=== PATIENT | male | born 1950 | race Caucasian/White ===

== ENCOUNTER 2018-04-21 01:13 | Outpatient (CLI) | payer MEDICARE, OTHER, SELFPAY ==
--- NOTE | 2018-04-21 11:31 | DI.MRI_ITS ---
SYMPTOM/DIAGNOSIS: CHRONIC BACK PAIN, LT LEG WEAKER THAN RT LUMBAR SPINE MRI: Routine noncontrast examination was performed. Comparison is made with 2011. The conus medullaris has a normal appearance and location. 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 There is disc desiccation at the L 5-S 1 disc space and endplate degenerative signal changes. There is mild narrowing of the transverse diameter of the spinal canal at this level. There is marked bilateral neural foraminal stenosis with compression of the exiting nerve roots bilaterally. At L 4-5, there is disc desiccation. Endplate osteophytes are present. There are degenerative changes of the facets and ligamentum flavum. No significant central spinal stenosis is seen. There is moderately severe bilateral neural foraminal stenosis with compression of the nerve roots noted bilaterally. At L 3-4, there is degenerative disc disease, endplate degenerative signal changes and osteophytes present. There are hypertrophic changes of the facets and ligamentum flavum. There is a 0.7 by 0.4 cm. synovial cyst arising from the left facet projecting into the spinal canal. These all contribute to cause moderate central spinal canal stenosis. There is moderate bilateral neural foraminal stenosis but no significant nerve root compression is seen. At L 2-3, there is disc desiccation and endplate osteophytes and endplate degenerative signal changes present. No central spinal canal stenosis or focal disc herniation is seen. Mild narrowing of the neural foramen is seen bilaterally. No nerve root compression is identified. At L 1-2., there is disc desiccation and endplate degenerative signal change and osteophytes. No focal disc herniation or central spinal stenosis is seen. There is mild narrowing of the neural foramen bilaterally but no nerve root compression is seen. Apart from the degenerative endplate signal changes, marrow signal is within normal limits. IMPRESSION: Marked degenerative changes seen throughout the lumbar spine resulting in central spinal canal and neural foraminal stenosis as described. The findings are most marked at L 5-S 1. 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 Synovial cyst arising from the left facet joint at L 3- 4 contributing to the central spinal canal stenosis at this level.
== END 2018-04-21 01:33 ==
PROVIDERS: PCP Family Medicine; Visit Provider Family Medicine
DX: M54.5 Low back pain (principal); G89.29 Other chronic pain; R29.898 Other symptoms and signs involving the musculoskeletal system; M51.17 Intervertebral disc disorders with radiculopathy, lumbosacral region; M43.07 Spondylolysis, lumbosacral region; M43.17 Spondylolisthesis, lumbosacral region; M71.38 Other bursal cyst, other site
CPT/HCPCS: 72148

== ENCOUNTER 2018-10-10 01:56 | Outpatient (CLI) | payer MEDICARE, OTHER, SELFPAY ==
[2018-10-10 11:35] LABS: HCT 32.7 % (40.0-50.0); HGB 10.5 g/dL (13.5-17.5); Mean Corp. HGB Concentration 32.1 g/dL (32.0-36.0); Mean Corpuscular Hemoglobin 30.3 pg (27.0-33.0); Mean Corpuscular Volume 94.5 fL (80-95); Mean Platelet Volume 10.3 fL (8.0-11.0); Platelet Count 247 x1000/uL (130-400); RBC 3.46 m/cumm (4.50-6.00); RBC Distribution Width 12.7 % (11.8-14.1); White Blood Cell Count 3.47 k/cumm (4.4-10.8)
[2018-10-10 11:39] LABS: Anion Gap 9.2 mmol/L (3-11); BUN 37 mg/dL (7-18); CO2 25.8 mmol/L (21.0-32.0); CREATININE 1.37 mg/dL (0.70-1.30); Calcium 8.9 mg/dL (8.5-10.1); Chloride 106 mmol/L (98-107); Estimated GFR 51.37 (mL/min/1.73m2); Glucose 99 mg/dL (70-100); Potassium 5.4 mmol/L (3.5-5.1); Sodium 141 mmol/L (136-145)
== END 2018-10-10 02:16 ==
PROVIDERS: PCP Family Medicine; Visit Provider Family Medicine
DX: I10 Essential (primary) hypertension (principal)
CPT/HCPCS: 36415; 80048; 85027

== ENCOUNTER 2018-10-24 01:51 | Outpatient (CLI) | payer MEDICARE, OTHER, SELFPAY ==
[2018-10-24 10:43] LABS: Reticulocyte 1.6 % (0.5-2.4)
[2018-10-24 10:55] LABS: Iron 57 ug/dL (50-175); Total Iron Binding Capacity 273 ug/dL (250-450); Transferrin Sat 21 % (20-55)
[2018-10-24 11:22] LABS: Ferritin 202 ng/mL (8-388); Vitamin B12 1560 pg/mL (193-986)
== END 2018-10-24 02:11 ==
PROVIDERS: PCP Family Medicine; Visit Provider Family Medicine
DX: D64.9 Anemia, unspecified (principal)
CPT/HCPCS: 36415; 82607; 82728; 83540; 83550; 85045

== ENCOUNTER → 2019-05-02 10:17 | Outpatient (BNVA) | payer MEDICARE, OTHER, SELFPAY | PROVIDERS: PCP Family Medicine; Referring Provider Family Medicine; Visit Provider Psychiatry & Neurology Neurology | DX: G20 Parkinson's disease (principal); I95.1 Orthostatic hypotension; I10 Essential (primary) hypertension | CPT/HCPCS: 99205; 99215 ==

== ENCOUNTER 2019-05-03 01:27 | Outpatient (CLI) | payer MEDICARE, OTHER, SELFPAY ==
[2019-05-03 10:24] LABS: Absolute Basophil Count 0.03 k/cumm (0.0-0.2); Absolute Eosinophil Count 0.27 k/cumm (0.0-0.7); Absolute Monocyte Count 0.43 k/cumm (0.11-0.7); Absolute Neutrophil Count 3.48 k/cumm (1.2-6.7); Basophils % 0.6; Eosinophils % 5.3; HCT 29.8 % (40.0-50.0); HGB 9.6 g/dL (13.5-17.5); Lymphocytes % 17.6; Mean Corp. HGB Concentration 32.2 g/dL (32.0-36.0); Mean Corpuscular Hemoglobin 30.3 pg (27.0-33.0); Mean Platelet Volume 9.6 fL (8.0-11.0); Monocytes % 8.4; Neutrophils % 68.1; Platelet Count 313 x1000/uL (130-400); RBC 3.17 m/cumm (4.50-6.00); RBC Distribution Width 12.4 % (11.8-14.1); White Blood Cell Count 5.11 k/cumm (4.4-10.8)
[2019-05-03 11:35] LABS: Anisocytosis 1+; Polychromasia Present
[2019-05-03 11:36] LABS: Diff Comment Diff Reviewed
== END 2019-05-03 01:47 ==
PROVIDERS: PCP Family Medicine; Visit Provider Family Medicine
DX: D64.9 Anemia, unspecified (principal)
CPT/HCPCS: 36415; 85027; 85025

== ENCOUNTER 2019-05-08 02:14 | Outpatient (CLI) | payer MEDICARE, OTHER, SELFPAY ==
[2019-05-08 11:44] LABS: LDH 147 U/L (85-227)
[2019-05-09 11:02] LABS: Haptoglobin 162 mg/dL (32-197)
== END 2019-05-08 02:34 ==
PROVIDERS: PCP Family Medicine; Visit Provider Family Medicine
DX: D64.9 Anemia, unspecified (principal)
CPT/HCPCS: 36415; 83010; 83615

== ENCOUNTER 2019-06-05 13:25 | Outpatient (CLI) | payer MEDICARE, OTHER, SELFPAY ==
[2019-06-05 13:32] VITALS: BP 126/79; PULSE 75; RESP 16; TEMP 35.5; O2SAT 100
--- NOTE | 2019-06-05 14:06 | PDOC.PAIN ---
Pain Clinic Procedure Note Procedure Note Procedure Note: Lumbar Epidural Steroid Injection Procedure Note Pre-operative diagnosis: lumbar radiculopathy lumbar spinal stenosis Post-operative diagnosis: same as above COMMENTS:patient received significant pain relief from prior lumbar epidural steroid injection. he currently has predominantly back pain with radiation down left lower back and buttock area. this is very similar to how he felt in the past prior to receiving lumbar epidural steroid injection. KEY FERRARI has been referred to the [facility] for lumbar epidural steroid injection. The patient was greeted by the nurse who verified patients name and . Patient was then taken to the fluoroscopy suite. The patient was interviewed and the medial record reviewed. There were no medical, pharmacologic, radiographic, or other structural contraindications to attempting fluoroscopically guided lumbar epidural steroid injection. Risks and expected side effects as well as potential benefits of the procedure were reviewed and voiced concerns expressed. The patient consent form was signed and witnessed. Standard patient time-out procedure was performed. The patient was placed in the prone position on the fluoroscopy table and automated blood pressure cuff and pulse oximeter applied. The skin entry point for entering/approaching the epidural space by a L5-S1 left paramedian and marked. Following thorough chlorhexadine preparation of the skin and draping and 1% lidocaine infiltration of the skin entry point and subcutaneous tissues, a 18 gauge Touhy needle was placed under fluoroscopic guidance and with loss of resistance technique into the epidural space. Needle tip placement and depth were aided and confirmed by fluoroscopy. There was no paresthesia or return of blood or CSF through the needle. 1 cc's of Omnipaque 240 was injected with clear epidural spread confirmed with fluoroscopy. 80mg depomedrol was injected. This is followed by 0.5cc of preservative free 1% lidocaine and 1cc of preservative free normal saline. There was not any unusual discomfort expressed by KEY FERRARI. Patient's vital signs were stable throughout the procedure and were as recorded in nursing records. Follow up plans and appointments were discussed with patient. Post procedure instruction was given as documented in nursing records and having met discharge criteria and was discharged from the [facility]. COMMENTS: If this procedure is helpful, it can be completed up to 3 times per 12 months. Tito Bhatia MD Pain Management
[2019-06-05 14:47] VITALS: BP 132/64; PULSE 68; RESP 14; O2SAT 98
--- NOTE | 2019-06-05 14:48 | DI.RAD_ITS ---
EXAM: XR PAIN CLINIC LUMBAR SP 2V CLINICAL HISTORY: Dx: Lumbar Radiculopathy. TECHNIQUE: Fluoroscopy was provided for the referring physician for guidance with performing injecti on procedure. COMPARISON: No exams were available for comparison FINDINGS: Please see procedure note for details. FLUORO TIME: 43.9 seconds
[2019-06-05] MEDS: methylPREDNISolone ACETATE 80 MG/ML VIAL IJ (14:58)
[2019-06-05] MEDS: Omnipaque 240 MG/ML 50 ML BTL IJ (14:58)
== END 2019-06-05 13:45 ==
PROVIDERS: PCP Family Medicine; Visit Provider Internal Medicine
DX: M48.061 Spinal stenosis, lumbar region without neurogenic claudication (principal); M54.16 Radiculopathy, lumbar region
CPT/HCPCS: 62323; 72100; J1040; Q9967

== ENCOUNTER → 2019-11-05 07:42 | Outpatient (BNVA) | payer MEDICARE, OTHER, SELFPAY | PROVIDERS: PCP Family Medicine; Referring Provider Family Medicine; Visit Provider Psychiatry & Neurology Neurology | DX: G20 Parkinson's disease (principal); I95.1 Orthostatic hypotension; M54.5 Low back pain; G89.29 Other chronic pain | CPT/HCPCS: 99213; 99441 ==

== ENCOUNTER 2019-12-27 02:16 | Outpatient (CLI) | payer MEDICARE, OTHER, SELFPAY ==
[2019-12-27 13:17] LABS: Absolute Basophil Count 0.05 k/cumm (0.0-0.2); Absolute Eosinophil Count 0.25 k/cumm (0.0-0.7); Absolute Lymphocyte Count 1.03 k/cumm (1.2-3.4); Absolute Monocyte Count 0.35 k/cumm (0.11-0.7); Absolute Neutrophil Count 3.57 k/cumm (1.2-6.7); Eosinophils % 4.8; HCT 28.8 % (40.0-50.0); HGB 9.4 g/dL (13.5-17.5); Lymphocytes % 19.6; Mean Corp. HGB Concentration 32.6 g/dL (32.0-36.0); Mean Corpuscular Hemoglobin 30.8 pg (27.0-33.0); Mean Corpuscular Volume 94.4 fL (80-95); Mean Platelet Volume 8.8 fL (8.0-11.0); Monocytes % 6.7; Neutrophils % 67.9; Platelet Count 276 x1000/uL (130-400); RBC 3.05 m/cumm (4.50-6.00); RBC Distribution Width 11.5 % (11.8-14.1); White Blood Cell Count 5.25 k/cumm (4.4-10.8)
== END 2019-12-27 02:36 ==
PROVIDERS: PCP Family Medicine; Visit Provider Internal Medicine Hematology & Oncology
DX: D64.9 Anemia, unspecified (principal)
CPT/HCPCS: 36415; 85025

== ENCOUNTER 2020-01-10 08:27 | Outpatient (CLI) | payer MEDICARE, OTHER, SELFPAY ==
[2020-01-10 09:00] LABS: Absolute Basophil Count 0.05 k/cumm (0.0-0.2); Absolute Eosinophil Count 0.34 k/cumm (0.0-0.7); Absolute Lymphocyte Count 0.63 k/cumm (1.2-3.4); Absolute Neutrophil Count 2.72 k/cumm (1.2-6.7); Basophils % 1.2; Eosinophils % 8.4; HCT 33.1 % (40.0-50.0); HGB 10.7 g/dL (13.5-17.5); Lymphocytes % 15.6; Mean Corp. HGB Concentration 32.3 g/dL (32.0-36.0); Mean Corpuscular Hemoglobin 30.3 pg (27.0-33.0); Mean Corpuscular Volume 93.8 fL (80-95); Mean Platelet Volume 8.4 fL (8.0-11.0); Monocytes % 7.4; Neutrophils % 67.4; Platelet Count 304 x1000/uL (130-400); RBC 3.53 m/cumm (4.50-6.00); RBC Distribution Width 12.7 % (11.8-14.1); White Blood Cell Count 4.04 k/cumm (4.4-10.8)
== END 2020-01-10 08:47 ==
PROVIDERS: PCP Family Medicine; Visit Provider Internal Medicine Hematology & Oncology
DX: D64.9 Anemia, unspecified (principal)
CPT/HCPCS: 36415; 85025

== ENCOUNTER 2020-01-17 02:11 | Outpatient (CLI) | payer MEDICARE, OTHER, SELFPAY ==
[2020-01-17 08:16] LABS: Absolute Basophil Count 0.03 k/cumm (0.0-0.2); Absolute Eosinophil Count 0.27 k/cumm (0.0-0.7); Absolute Lymphocyte Count 0.65 k/cumm (1.2-3.4); Absolute Monocyte Count 0.28 k/cumm (0.11-0.7); Absolute Neutrophil Count 2.54 k/cumm (1.2-6.7); Basophils % 0.8; Eosinophils % 7.2; HCT 36.9 % (40.0-50.0); HGB 11.7 g/dL (13.5-17.5); Lymphocytes % 17.2; Mean Corp. HGB Concentration 31.7 g/dL (32.0-36.0); Mean Corpuscular Hemoglobin 30.1 pg (27.0-33.0); Mean Corpuscular Volume 94.9 fL (80-95); Mean Platelet Volume 8.3 fL (8.0-11.0); Monocytes % 7.4; Neutrophils % 67.4; Platelet Count 315 x1000/uL (130-400); RBC 3.89 m/cumm (4.50-6.00); RBC Distribution Width 13.2 % (11.8-14.1); White Blood Cell Count 3.77 k/cumm (4.4-10.8)
== END 2020-01-17 02:31 ==
PROVIDERS: PCP Family Medicine; Visit Provider Internal Medicine Hematology & Oncology
DX: D64.9 Anemia, unspecified (principal)
CPT/HCPCS: 36415; 85025

== ENCOUNTER → 2020-02-04 12:41 | Outpatient (BNVA) | payer MEDICARE, OTHER, SELFPAY | PROVIDERS: PCP Family Medicine; Referring Provider Family Medicine; Visit Provider Psychiatry & Neurology Neurology | DX: I95.1 Orthostatic hypotension (principal); G20 Parkinson's disease; K59.00 Constipation, unspecified; M54.5 Low back pain; M48.061 Spinal stenosis, lumbar region without neurogenic claudication; G89.29 Other chronic pain; I12.9 Hypertensive chronic kidney disease with stage 1 through stage 4 chronic kidney disease, or unspecified chronic kidney disease; N18.9 Chronic kidney disease, unspecified | CPT/HCPCS: 99214 ==

== ENCOUNTER 2020-02-05 12:07 | Outpatient (CLI) | payer MEDICARE, OTHER, SELFPAY ==
[2020-02-05 12:17] VITALS: BP 140/76; PULSE 72; RESP 22; TEMP 37; O2SAT 97
--- NOTE | 2020-02-05 12:55 | DI.RAD_ITS ---
EXAM: XR PAIN CLINIC LUMBAR SP 2V CLINICAL HISTORY: Dx: Lumbar Spondylosis TECHNIQUE: 2D and realtime digital imaging was performed. CONTRAST MATERIAL: Refer to procedure report. COMPARISON: No exams were available for comparison FINDINGS: Fluoroscopy was provided for Dr. Bhatia during the performance of a lumbar medial branch block. Please refer to the procedure report for complete details. Fluoro time: 56.7 seconds IMPRESSION:
[2020-02-05] MEDS: Bupivacaine 0.5% Pres-Free 10 ML VIAL IJ (13:04)
[2020-02-05] MEDS: Omnipaque 240 MG/ML 50 ML BTL IJ (13:04)
[2020-02-05 13:10] VITALS: BP 144/80; PULSE 69; RESP 15; O2SAT 97
--- NOTE | 2020-02-05 13:27 | PDOC.PAIN ---
Pain Clinic Procedure Note Procedure Note Procedure Note: Lumbar/Sacral Medial Branch Blocks KEY FERRARI has been referred to the [facility] for lumbar/sacral medial branch blocks. Pre-operative diagnosis: lumbar spondylosis Post-operative diagnosis: same as above COMMENTS: patient has Parkinson's, reports axial low back pain that is worse with lumbar flexion. Patient was interviewed and the medical record reviewed. There were no medical, pharmacologic, radiographic or other structural contraindications to attempting fluoroscopically guided local anesthetic lumbar/sacral medial branch blocks. Risks and expected side effects as well as potential benefit of the procedure were reviewed and voiced concerns addressed. The printed consent form was signed and witnessed. Standard time-out procedure was performed. Patient was placed in the prone position on the fluoroscopy table and automated blood pressure cuff and pulse oximeter applied. The skin entry points for approaching the anatomic target points of the segmental medial branches of bilateral L3, L4, L5-DR were identified with anfluoroscopy and marked. Following thorough Chlorhexadine preparation of the skin and draping and 1% lidocaine infiltration of the skin entry points and subcutaneous tissues, a 22 gauge spinal needle was placed under fluoroscopic guidance down on to the target point for each respective segmental medial branch.Position was confirmed in A/P, oblique and lateral views with 0.25ml of omnipaque 240. Coult be this method .5ml 0.5% Bupivacaine was injected. Vital signs were stable throughout the procedure and were as recorded in the docflowsheet by the nursing staff. Follow up plans and appointments were discussed and was instructed to keep careful note of how the usual pain was modified by these injections. Specifically was asked to keep a pain diary for the next 24 hours using a numeric pain scale of 0-10 and report these results at the follow-up visit. Post procedure instruction was given as documented in the nursing documentation and having met discharge criteria. Patient was discharged from the [facility]. Based on the medial branches blocked today, if the patient has adequate relief and we are able to proceed to radiofrequency ablation, the treatment should result in the denervation of the bilateral L4/5 and L5/S1. We would expect to denervate a total of 4 facets during the radiofrequency ablation. COMMENTS: patient tolerated procedure well. I personally performed the entire procedure. Tito Bhatia MD Pain Management CC: Larry Thomas MD
== END 2020-02-05 12:27 ==
PROVIDERS: PCP Family Medicine; Visit Provider Internal Medicine
DX: M47.816 Spondylosis without myelopathy or radiculopathy, lumbar region (principal)
CPT/HCPCS: 64493; 64494; 72100; Q9967

== ENCOUNTER 2020-02-07 01:41 | Outpatient (CLI) | payer MEDICARE, OTHER, SELFPAY ==
[2020-02-07 07:46] LABS: Absolute Basophil Count 0.03 k/cumm (0.0-0.2); Absolute Eosinophil Count 0.23 k/cumm (0.0-0.7); Absolute Lymphocyte Count 0.88 k/cumm (1.2-3.4); Absolute Neutrophil Count 3.77 k/cumm (1.2-6.7); Basophils % 0.6; Eosinophils % 4.4; HCT 37.8 % (40.0-50.0); HGB 12.2 g/dL (13.5-17.5); Lymphocytes % 16.9; Mean Corp. HGB Concentration 32.3 g/dL (32.0-36.0); Mean Corpuscular Hemoglobin 29.9 pg (27.0-33.0); Mean Corpuscular Volume 92.6 fL (80-95); Mean Platelet Volume 9.4 fL (8.0-11.0); Monocytes % 5.8; Neutrophils % 72.3; Platelet Count 244 x1000/uL (130-400); RBC 4.08 m/cumm (4.50-6.00); RBC Distribution Width 12.8 % (11.8-14.1); White Blood Cell Count 5.21 k/cumm (4.4-10.8)
[2020-02-07 08:15] LABS: ALT 8 U/L (16-63); AST 17 U/L (15-37); Alkaline Phosphatase 45 U/L (46-116); Anion Gap 8.7 mmol/L (3-11); BUN 40 mg/dL (7-18); Bilirubin, Total 0.3 mg/dL (0.2-1.0); CO2 25.3 mmol/L (21.0-32.0); CREATININE 1.45 mg/dL (0.70-1.30); Chloride 103 mmol/L (98-107); Estimated GFR 47.84 (mL/min/1.73m2); Glucose 101 mg/dL (74-106); Potassium 5.1 mmol/L (3.5-5.1); Sodium 137 mmol/L (136-145); Total Protein 7.1 g/dL (6.4-8.2)
== END 2020-02-07 02:01 ==
PROVIDERS: PCP Family Medicine; Visit Provider Internal Medicine Hematology & Oncology
DX: N18.3 Chronic kidney disease, stage 3 (moderate) (principal); D63.1 Anemia in chronic kidney disease
CPT/HCPCS: 36415; 80053; 85025

== ENCOUNTER 2020-03-14 01:48 | Outpatient (CLI) | payer MEDICARE, OTHER, SELFPAY ==
[2020-03-14 10:12] LABS: Abs Immature Grans 0.02 10^3/uL (0.0-0.06); Absolute Basophil Count 0.04 10^3/uL (0.0-0.2); Absolute Eosinophil Count 0.12 10^3/uL (0.0-0.7); Absolute Lymphocyte Count 0.84 10^3/uL (1.2-3.4); Absolute Monocyte Count 0.36 10^3/uL (0.1-0.8); Absolute Neutrophil Count 3.31 10^3/uL (1.2-6.7); Basophils % 0.9; Eosinophils % 2.6; HCT 33.8 % (40.0-50.0); HGB 10.8 g/dL (13.5-17.5); Immature Grans % 0.4; Lymphocytes % 17.9; MCH 29.7 pg (27.0-33.0); MCV 92.9 fL (80-95); MPV 9.1 fL (8.0-11.0); Monocytes % 7.7; Neutrophils % 70.5; Nucleated RBC 0 %; Platelet Count 214 10^3/uL (130-400); RBC 3.64 10^6/uL (4.36-5.78); RDW 12.5 % (11.8-14.1); RDW-SD 43.1 fL; WBC 4.69 10^3/uL (4.4-10.8)
[2020-03-14 10:24] LABS: ALT 9 U/L (16-63); AST 21 U/L (15-37); Albumin 3.9 g/dL (3.4-5.0); Alkaline Phosphatase 39 U/L (46-116); Anion Gap 10.6 mmol/L (3-11); BUN 33 mg/dL (7-18); Bilirubin, Total 0.3 mg/dL (0.2-1.0); CO2 24.4 mmol/L (21.0-32.0); Calcium 8.8 mg/dL (8.5-10.1); Chloride 103 mmol/L (98-107); Estimated GFR 49.82 (mL/min/1.73m2); Glucose 108 mg/dL (74-106); Potassium 4.9 mmol/L (3.5-5.1); Sodium 138 mmol/L (136-145); Total Protein 6.9 g/dL (6.4-8.2)
== END 2020-03-14 02:08 ==
PROVIDERS: PCP Family Medicine; Visit Provider Internal Medicine Hematology & Oncology
DX: D63.1 Anemia in chronic kidney disease (principal); N18.3 Chronic kidney disease, stage 3 (moderate)
CPT/HCPCS: 36415; 80053; 85025

== ENCOUNTER → 2020-03-20 10:44 | Outpatient (BNVA) | payer MEDICARE, OTHER, SELFPAY | PROVIDERS: PCP Family Medicine; Referring Provider Family Medicine; Visit Provider Psychiatry & Neurology Neurology | DX: I95.1 Orthostatic hypotension (principal); G20 Parkinson's disease; K59.00 Constipation, unspecified; I12.9 Hypertensive chronic kidney disease with stage 1 through stage 4 chronic kidney disease, or unspecified chronic kidney disease; N18.9 Chronic kidney disease, unspecified; M54.5 Low back pain; R25.1 Tremor, unspecified | CPT/HCPCS: 99213 ==

== ENCOUNTER 2020-04-03 04:13 | Outpatient (CLI) | payer MEDICARE, OTHER, SELFPAY ==
[2020-04-03 08:09] LABS: Absolute Basophil Count 0.06 10^3/uL (0.0-0.2); Absolute Eosinophil Count 0.15 10^3/uL (0.0-0.7); Absolute Lymphocyte Count 0.77 10^3/uL (1.2-3.4); Absolute Monocyte Count 0.32 10^3/uL (0.1-0.8); Absolute Neutrophil Count 2.86 10^3/uL (1.2-6.7); Basophils % 1.4; Eosinophils % 3.6; HCT 37.1 % (40.0-50.0); HGB 11.6 g/dL (13.5-17.5); Lymphocytes % 18.5; MCH 29.5 pg (27.0-33.0); MCHC 31.3 % (32.0-36.0); MCV 94.4 fL (80-95); MPV 9.4 fL (8.0-11.0); Monocytes % 7.7; Neutrophils % 68.8; Nucleated RBC 0 %; Platelet Count 246 10^3/uL (130-400); RBC 3.93 10^6/uL (4.36-5.78); RDW 14.6 % (11.8-14.1); RDW-SD 50.2 fL; WBC 4.16 10^3/uL (4.4-10.8)
[2020-04-03 08:29] LABS: ALT 18 U/L (16-63); AST 13 U/L (15-37); Alkaline Phosphatase 48 U/L (46-116); Anion Gap 6.8 mmol/L (3-11); BUN 38 mg/dL (7-18); Bilirubin, Total 0.6 mg/dL (0.2-1.0); CO2 27.2 mmol/L (21.0-32.0); CREATININE 1.51 mg/dL (0.70-1.30); Calcium 9.1 mg/dL (8.5-10.1); Chloride 104 mmol/L (98-107); Estimated GFR 45.65 (mL/min/1.73m2); Glucose 93 mg/dL (74-106); Potassium 4.5 mmol/L (3.5-5.1); Sodium 138 mmol/L (136-145); Total Protein 7.1 g/dL (6.4-8.2)
[2020-04-03 09:04] LABS: Calculated LDL 124 mg/dL (<100); Cholesterol 200 mg/dL (<200); HDL Cholesterol 63 mg/dL (40-60); Triglyceride 67 mg/dL (<150)
== END 2020-04-03 04:33 ==
PROVIDERS: Family Medicine; PCP Family Medicine; Visit Provider Internal Medicine Hematology & Oncology
DX: N18.3 Chronic kidney disease, stage 3 (moderate) (principal); D63.1 Anemia in chronic kidney disease; I10 Essential (primary) hypertension
CPT/HCPCS: 36415; 80053; 80061; 85025

== ENCOUNTER 2020-04-11 02:11 | Outpatient (CLI) | payer MEDICARE, OTHER, SELFPAY ==
[2020-04-11 08:10] LABS: Abs Immature Grans 0.02 10^3/uL (0.0-0.06); Absolute Basophil Count 0.08 10^3/uL (0.0-0.2); Absolute Eosinophil Count 0.24 10^3/uL (0.0-0.7); Absolute Lymphocyte Count 0.91 10^3/uL (1.2-3.4); Absolute Monocyte Count 0.34 10^3/uL (0.1-0.8); Absolute Neutrophil Count 3.16 10^3/uL (1.2-6.7); Basophils % 1.7; Eosinophils % 5.1; HCT 36.2 % (40.0-50.0); HGB 11.2 g/dL (13.5-17.5); Immature Grans % 0.4; Lymphocytes % 19.2; MCH 29.3 pg (27.0-33.0); MCHC 30.9 % (32.0-36.0); MCV 94.8 fL (80-95); MPV 9.6 fL (8.0-11.0); Monocytes % 7.2; Neutrophils % 66.4; Nucleated RBC 0 %; Platelet Count 221 10^3/uL (130-400); RBC 3.82 10^6/uL (4.36-5.78); RDW 14.6 % (11.8-14.1); RDW-SD 50.4 fL; WBC 4.75 10^3/uL (4.4-10.8)
[2020-04-11 08:19] LABS: ALT 17 U/L (16-63); AST 14 U/L (15-37); Alkaline Phosphatase 50 U/L (46-116); Anion Gap 9.5 mmol/L (3-11); BUN 39 mg/dL (7-18); Bilirubin, Total 0.3 mg/dL (0.2-1.0); CO2 25.5 mmol/L (21.0-32.0); CREATININE 1.46 mg/dL (0.70-1.30); Calcium 9.1 mg/dL (8.5-10.1); Chloride 105 mmol/L (98-107); Estimated GFR 47.46 (mL/min/1.73m2); Glucose 100 mg/dL (74-106); Potassium 4.6 mmol/L (3.5-5.1); Sodium 140 mmol/L (136-145); Total Protein 6.9 g/dL (6.4-8.2)
== END 2020-04-11 02:31 ==
PROVIDERS: PCP Family Medicine; Visit Provider Internal Medicine Hematology & Oncology
DX: D63.1 Anemia in chronic kidney disease; N18.3 Chronic kidney disease, stage 3 (moderate)
CPT/HCPCS: 36415; 80053; 85025

== ENCOUNTER 2020-05-08 03:59 | Outpatient (CLI) | payer MEDICARE, OTHER, SELFPAY ==
[2020-05-08 12:42] LABS: Abs Immature Grans 0.01 10^3/uL (0.0-0.06); Absolute Basophil Count 0.03 10^3/uL (0.0-0.2); Absolute Eosinophil Count 0.13 10^3/uL (0.0-0.7); Absolute Lymphocyte Count 0.83 10^3/uL (1.2-3.4); Absolute Monocyte Count 0.29 10^3/uL (0.1-0.8); Absolute Neutrophil Count 3.23 10^3/uL (1.2-6.7); Basophils % 0.7; Eosinophils % 2.9; HCT 30.5 % (40.0-50.0); HGB 9.8 g/dL (13.5-17.5); Immature Grans % 0.2; Lymphocytes % 18.4; MCH 30.2 pg (27.0-33.0); MCHC 32.1 % (32.0-36.0); MCV 93.8 fL (80-95); MPV 9.1 fL (8.0-11.0); Monocytes % 6.4; Neutrophils % 71.4; Nucleated RBC 0 %; Platelet Count 210 10^3/uL (130-400); RBC 3.25 10^6/uL (4.36-5.78); RDW 13.6 % (11.8-14.1); RDW-SD 46.8 fL; WBC 4.52 10^3/uL (4.4-10.8)
[2020-05-08 13:12] LABS: ALT 22 U/L (16-63); AST 16 U/L (15-37); Albumin 3.9 g/dL (3.4-5.0); Alkaline Phosphatase 47 U/L (46-116); Anion Gap 5.3 mmol/L (3-11); BUN 44 mg/dL (7-18); Bilirubin, Total 0.3 mg/dL (0.2-1.0); CO2 28.7 mmol/L (21.0-32.0); CREATININE 1.99 mg/dL (0.70-1.30); Calcium 8.9 mg/dL (8.5-10.1); Chloride 103 mmol/L (98-107); Glucose 144 mg/dL (74-106); Potassium 4.3 mmol/L (3.5-5.1); Sodium 137 mmol/L (136-145)
== END 2020-05-08 04:19 ==
PROVIDERS: PCP Family Medicine; Visit Provider Internal Medicine Hematology & Oncology
DX: D64.9 Anemia, unspecified (principal)
CPT/HCPCS: 36415; 80053; 85025

== ENCOUNTER → 2020-05-22 12:20 | Outpatient (BNVA) | payer MEDICARE, OTHER, SELFPAY | PROVIDERS: PCP Family Medicine; Referring Provider Family Medicine; Visit Provider Psychiatry & Neurology Neurology | DX: I95.1 Orthostatic hypotension (principal); G20 Parkinson's disease; K59.00 Constipation, unspecified; F32.4 Major depressive disorder, single episode, in partial remission; I12.9 Hypertensive chronic kidney disease with stage 1 through stage 4 chronic kidney disease, or unspecified chronic kidney disease; N18.9 Chronic kidney disease, unspecified | CPT/HCPCS: 99213 ==

== ENCOUNTER 2020-06-05 13:02 | Outpatient (CLI) | payer MEDICARE, OTHER, SELFPAY ==
[2020-06-05 13:20] LABS: Abs Immature Grans 0.02 10^3/uL (0.0-0.06); Absolute Basophil Count 0.06 10^3/uL (0.0-0.2); Absolute Lymphocyte Count 0.86 10^3/uL (1.2-3.4); Absolute Monocyte Count 0.25 10^3/uL (0.1-0.8); Absolute Neutrophil Count 2.75 10^3/uL (1.2-6.7); Basophils % 1.4; Eosinophils % 4.8; HCT 28.7 % (40.0-50.0); HGB 9.4 g/dL (13.5-17.5); Immature Grans % 0.5; Lymphocytes % 20.8; MCH 31.9 pg (27.0-33.0); MCHC 32.8 % (32.0-36.0); MCV 97.3 fL (80-95); MPV 9.2 fL (8.0-11.0); Neutrophils % 66.5; Nucleated RBC 0 %; Platelet Count 210 10^3/uL (130-400); RBC 2.95 10^6/uL (4.36-5.78); RDW 13.3 % (11.8-14.1); RDW-SD 47.6 fL; WBC 4.14 10^3/uL (4.4-10.8)
[2020-06-05 13:41] LABS: ALT 17 U/L (16-63); AST 16 U/L (15-37); Albumin 3.7 g/dL (3.4-5.0); Alkaline Phosphatase 44 U/L (46-116); Anion Gap 7.7 mmol/L (3-11); BUN 51 mg/dL (7-18); Bilirubin, Total 0.2 mg/dL (0.2-1.0); CO2 26.3 mmol/L (21.0-32.0); CREATININE 2.22 mg/dL (0.70-1.30); Calcium 8.6 mg/dL (8.5-10.1); Chloride 105 mmol/L (98-107); Estimated GFR 29.26 (mL/min/1.73m2); Glucose 128 mg/dL (74-106); Potassium 4.9 mmol/L (3.5-5.1); Sodium 139 mmol/L (136-145); Total Protein 6.6 g/dL (6.4-8.2)
== END 2020-06-05 13:22 ==
PROVIDERS: PCP Family Medicine; Visit Provider Internal Medicine Hematology & Oncology
DX: N18.30 Chronic kidney disease, stage 3 unspecified (principal); D63.1 Anemia in chronic kidney disease; D64.9 Anemia, unspecified
CPT/HCPCS: 36415; 80053; 85025

== ENCOUNTER → 2020-06-26 10:49 | Outpatient (BNVA) | payer MEDICARE, OTHER, SELFPAY | PROVIDERS: PCP Family Medicine; Referring Provider Family Medicine; Visit Provider Psychiatry & Neurology Neurology | DX: I95.1 Orthostatic hypotension (principal); G20 Parkinson's disease; K59.00 Constipation, unspecified; N18.9 Chronic kidney disease, unspecified; R44.1 Visual hallucinations | CPT/HCPCS: 99213 ==

== ENCOUNTER 2020-07-03 20:53 | Outpatient (CLI) | payer MEDICARE, OTHER, SELFPAY ==
[2020-07-03 13:25] LABS: Abs Immature Grans 0.01 10^3/uL (0.0-0.06); Absolute Basophil Count 0.04 10^3/uL (0.0-0.2); Absolute Eosinophil Count 0.17 10^3/uL (0.0-0.7); Absolute Lymphocyte Count 0.78 10^3/uL (1.2-3.4); Absolute Monocyte Count 0.27 10^3/uL (0.1-0.8); Absolute Neutrophil Count 3.18 10^3/uL (1.2-6.7); Basophils % 0.9; Eosinophils % 3.8; HCT 34.9 % (40.0-50.0); HGB 10.9 g/dL (13.5-17.5); Immature Grans % 0.2; Lymphocytes % 17.5; MCH 30.5 pg (27.0-33.0); MCHC 31.2 % (32.0-36.0); MCV 97.8 fL (80-95); MPV 9.3 fL (8.0-11.0); Monocytes % 6.1; Neutrophils % 71.5; Nucleated RBC 0 %; Platelet Count 217 10^3/uL (130-400); RBC 3.57 10^6/uL (4.36-5.78); RDW 12.3 % (11.8-14.1); RDW-SD 44.6 fL; WBC 4.45 10^3/uL (4.4-10.8)
== END 2020-07-03 21:13 ==
PROVIDERS: PCP Family Medicine; Visit Provider Internal Medicine Hematology & Oncology
DX: N18.31 Chronic kidney disease, stage 3a (principal); D63.1 Anemia in chronic kidney disease
CPT/HCPCS: 36415; 85025

== ENCOUNTER 2020-07-29 01:38 | Outpatient (CLI) | payer MEDICARE, OTHER, SELFPAY ==
--- NOTE | 2020-07-29 07:15 | DI.US_ITS ---
EXAM: US RENAL CLINICAL HISTORY: kidney failure, ? OBSTRUCTION,N19. TECHNIQUE: Chavez scale, color and spectral Doppler were used. COMPARISON: No exams were available for comparison FINDINGS: Renal size in cm: Right: 8.3 left: 8.1 Echogenicity: Normal Hydronephrosis: No Cyst or mass: No Nephrolithiasis: No Other findings: None Bladder:Normal Prevoid vol: 44 Postvoid vol:7 Prostate volume 36 cc IMPRESSION: Enlarged prostate. No evidence hydronephrosis. DATA REPOSITORY:
== END 2020-07-29 01:58 ==
PROVIDERS: PCP Family Medicine; Visit Provider Family Medicine
DX: N40.0 Benign prostatic hyperplasia without lower urinary tract symptoms (principal); N19 Unspecified kidney failure
CPT/HCPCS: 76770

== ENCOUNTER 2020-07-29 02:20 | Outpatient (CLI) | payer MEDICARE, OTHER, SELFPAY ==
[2020-07-29 10:50] LABS: Bilirubin Negative (Negative); Blood Negative (Negative); Clarity Clear (Clear); Glucose Negative (Negative); Ketones Negative (Negative); Leukocyte Esterase Negative (Negative); Nitrite Negative (Negative); Specific Gravity 1.015 (1.005-1.025); Urobilinogen 0.2 EU/dL (Up TO 0.2)
[2020-07-29 12:04] LABS: Anion Gap 10.6 mmol/L (3-11); BUN 44 mg/dL (7-18); CO2 26.4 mmol/L (21.0-32.0); CREATININE 1.78 mg/dL (0.70-1.30); Calcium 9.2 mg/dL (8.5-10.1); Chloride 100 mmol/L (98-107); Estimated GFR 37.76 (mL/min/1.73m2); Glucose 88 mg/dL (74-106); Potassium 4.5 mmol/L (3.5-5.1); Sodium 137 mmol/L (136-145)
== END 2020-07-29 02:40 ==
PROVIDERS: PCP Family Medicine; Visit Provider Family Medicine
DX: R39.11 Hesitancy of micturition (principal); N19 Unspecified kidney failure
CPT/HCPCS: 36415; 76770; 80048; 81003

== ENCOUNTER 2020-07-31 03:03 | Outpatient (CLI) | payer MEDICARE, OTHER, SELFPAY ==
[2020-07-31 12:39] LABS: Absolute Basophil Count 0.05 10^3/uL (0.0-0.2); Absolute Eosinophil Count 0.16 10^3/uL (0.0-0.7); Absolute Monocyte Count 0.24 10^3/uL (0.1-0.8); Absolute Neutrophil Count 3.01 10^3/uL (1.2-6.7); Basophils % 1.1; Eosinophils % 3.7; HGB 10.9 g/dL (13.5-17.5); Lymphocytes % 20.6; MCH 30.9 pg (27.0-33.0); MCHC 32.1 % (32.0-36.0); MCV 96.3 fL (80-95); MPV 9.3 fL (8.0-11.0); Monocytes % 5.5; Neutrophils % 69.1; Nucleated RBC 0 %; Platelet Count 219 10^3/uL (130-400); RBC 3.53 10^6/uL (4.36-5.78); RDW 12.5 % (11.8-14.1); RDW-SD 44.2 fL; WBC 4.36 10^3/uL (4.4-10.8)
[2020-07-31 13:05] LABS: ALT 25 U/L (16-63); AST 16 U/L (15-37); Albumin 3.9 g/dL (3.4-5.0); Alkaline Phosphatase 43 U/L (46-116); Anion Gap 6.5 mmol/L (3-11); BUN 55 mg/dL (7-18); Bilirubin, Total 0.2 mg/dL (0.2-1.0); CO2 29.5 mmol/L (21.0-32.0); CREATININE 2.19 mg/dL (0.70-1.30); Calcium 8.9 mg/dL (8.5-10.1); Chloride 104 mmol/L (98-107); Estimated GFR 29.72 (mL/min/1.73m2); Ferritin 165 ng/mL (26-388); Glucose 138 mg/dL (74-106); Potassium 5.2 mmol/L (3.5-5.1); Sodium 140 mmol/L (136-145); Total Protein 7.1 g/dL (6.4-8.2)
== END 2020-07-31 03:23 ==
PROVIDERS: PCP Family Medicine; Visit Provider Internal Medicine Hematology & Oncology
DX: D63.1 Anemia in chronic kidney disease (principal); N18.31 Chronic kidney disease, stage 3a
CPT/HCPCS: 36415; 80053; 82728; 85025

== ENCOUNTER 2020-08-06 19:33 | Outpatient (REF) | payer MEDICARE, OTHER, SELFPAY ==
[2020-08-06 14:12] LABS: Potassium 4.7 mmol/L (3.5-5.1)
== END 2020-08-06 19:53 ==
LOC: LBN 19:33
PROVIDERS: PCP Family Medicine; Visit Provider Family Medicine
DX: I10 Essential (primary) hypertension (principal)
CPT/HCPCS: 84132

== ENCOUNTER 2020-08-28 02:49 | Outpatient (CLI) | payer MEDICARE, OTHER, SELFPAY ==
[2020-08-28 10:46] LABS: Abs Immature Grans 0.01 10^3/uL (0.0-0.06); Absolute Basophil Count 0.06 10^3/uL (0.0-0.2); Absolute Eosinophil Count 0.18 10^3/uL (0.0-0.7); Absolute Lymphocyte Count 0.84 10^3/uL (1.2-3.4); Absolute Monocyte Count 0.36 10^3/uL (0.1-0.8); Basophils % 1.3; HCT 34.8 % (40.0-50.0); HGB 11.2 g/dL (13.5-17.5); Immature Grans % 0.2; Lymphocytes % 18.9; MCH 30.5 pg (27.0-33.0); MCHC 32.2 % (32.0-36.0); MCV 94.8 fL (80-95); MPV 9.1 fL (8.0-11.0); Monocytes % 8.1; Neutrophils % 67.5; Nucleated RBC 0 %; Platelet Count 218 10^3/uL (130-400); RBC 3.67 10^6/uL (4.36-5.78); RDW 12.4 % (11.8-14.1); RDW-SD 43.6 fL; WBC 4.45 10^3/uL (4.4-10.8)
[2020-08-28 11:06] LABS: ALT 25 U/L (16-63); AST 18 U/L (15-37); Albumin 4.1 g/dL (3.4-5.0); Alkaline Phosphatase 51 U/L (46-116); Anion Gap 8.1 mmol/L (3-11); BUN 62 mg/dL (7-18); Bilirubin, Total 0.4 mg/dL (0.2-1.0); CO2 26.9 mmol/L (21.0-32.0); CREATININE 1.8 mg/dL (0.70-1.30); Calcium 9.5 mg/dL (8.5-10.1); Chloride 103 mmol/L (98-107); Estimated GFR 37.27 (mL/min/1.73m2); Ferritin 200 ng/mL (26-388); Glucose 103 mg/dL (74-106); Sodium 138 mmol/L (136-145); Total Protein 7.4 g/dL (6.4-8.2)
== END 2020-08-28 02:50 | disposition home or self-care (01) ==
LOC: LBO 02:49
PROVIDERS: PCP Family Medicine; Visit Provider Internal Medicine Hematology & Oncology
DX: N18.31 Chronic kidney disease, stage 3a (principal); D63.1 Anemia in chronic kidney disease
CPT/HCPCS: 36415; 80053; 82728; 85025

== ENCOUNTER 2020-09-25 03:30 | Outpatient (CLI) | payer MEDICARE, OTHER, SELFPAY ==
[2020-09-25 10:22] LABS: Abs Immature Grans 0.02 10^3/uL (0.0-0.06); Absolute Basophil Count 0.05 10^3/uL (0.0-0.2); Absolute Eosinophil Count 0.14 10^3/uL (0.0-0.7); Absolute Lymphocyte Count 0.94 10^3/uL (1.2-3.4); Absolute Monocyte Count 0.43 10^3/uL (0.1-0.8); Absolute Neutrophil Count 4.38 10^3/uL (1.2-6.7); Basophils % 0.8; Eosinophils % 2.3; HCT 34.8 % (40.0-50.0); Immature Grans % 0.3; Lymphocytes % 15.8; MCH 30.4 pg (27.0-33.0); MCHC 31.6 % (32.0-36.0); MCV 96.1 fL (80-95); MPV 9.2 fL (8.0-11.0); Monocytes % 7.2; Neutrophils % 73.6; Nucleated RBC 0 %; Platelet Count 229 10^3/uL (130-400); RBC 3.62 10^6/uL (4.36-5.78); RDW 13.2 % (11.8-14.1); RDW-SD 46.6 fL; WBC 5.96 10^3/uL (4.4-10.8)
[2020-09-25 10:45] LABS: ALT 29 U/L (16-63); AST 14 U/L (15-37); Albumin 3.6 g/dL (3.4-5.0); Alkaline Phosphatase 46 U/L (46-116); Anion Gap 8.2 mmol/L (3-11); BUN 52 mg/dL (7-18); Bilirubin, Total 0.3 mg/dL (0.2-1.0); CO2 27.8 mmol/L (21.0-32.0); CREATININE 1.8 mg/dL (0.70-1.30); Calcium 8.9 mg/dL (8.5-10.1); Chloride 104 mmol/L (98-107); Estimated GFR 37.27 (mL/min/1.73m2); Ferritin 197 ng/mL (26-388); Glucose 86 mg/dL (74-106); Potassium 5.1 mmol/L (3.5-5.1); Sodium 140 mmol/L (136-145); Total Protein 6.7 g/dL (6.4-8.2)
== END 2020-09-25 03:31 | disposition home or self-care (01) ==
LOC: LBO 03:30
PROVIDERS: PCP Family Medicine; Visit Provider Internal Medicine Hematology & Oncology
DX: D63.1 Anemia in chronic kidney disease (principal); N18.31 Chronic kidney disease, stage 3a
CPT/HCPCS: 36415; 80053; 82728; 85025

== ENCOUNTER 2020-09-26 03:59 | Outpatient (CLI) | payer MEDICARE, OTHER, SELFPAY ==
--- NOTE | 2020-09-26 06:45 | DI.RAD_ITS ---
EXAM: XR HIP LT COMPLETE AP PELVIS INDICATION: left hip pain,M25.552. COMPARISON: No exams were available for comparison TECHNIQUE: 2D digital imaging was performed. FINDINGS: No fracture or dislocation is seen. Hip joint spaces are well maintained. There is mild acetabular spurring. The SI joints are unremarkable. IMPRESSION: Mild degenerative changes. DATA REPOSITORY: RADIATION DOSE DELIVERED:
--- NOTE | 2020-09-26 06:45 | DI.RAD_ITS ---
EXAM: XR LUMBAR SPINE COMPLETE CLINICAL HISTORY: spinal stenosis,ACUTE LOW BACK PAIN, M54.5. TECHNIQUE: 2D digital imaging was performed. COMPARISON: MR MR lumbar spine wo from 04/21/2018 FINDINGS: There is no evidence compression fracture. L5 spondylolysis and grade 1-2 spondylolisthesis is again noted, unchanged from previous MRI. There is severe degenerative disc changes throughout. There ar e prominent endplate osteophytes. Facet joint degenerative changes are also seen. The aorta is calc ified and normal in diameter. IMPRESSION: Stable L5 spondylolysis and L5-S1 spondylolisthesis. Advanced degenerative disc changes. No acute a bnormality. DATA REPOSITORY: RADIATION DOSE DELIVERED:
== END 2020-09-26 04:19 ==
PROVIDERS: PCP Family Medicine; Visit Provider Family Medicine
DX: M43.06 Spondylolysis, lumbar region (principal); M48.061 Spinal stenosis, lumbar region without neurogenic claudication; M16.12 Unilateral primary osteoarthritis, left hip
CPT/HCPCS: 72110; 73502

== ENCOUNTER 2020-10-20 02:38 | Outpatient (CLI) | payer MEDICARE, OTHER, SELFPAY ==
--- NOTE | 2020-10-20 10:40 | DI.MRI_ITS ---
EXAM: MR LUMBAR SPINE WO CLINICAL HISTORY: low back pain w/ sciatica,no relief with pt,m54.32. TECHNIQUE: Multiplanar multisequence MRI of the Lumbar spine was performed. COMPARISON: MR MR lumbar spine wo from 04/21/2018 MR MR lumbar spine wo from 04/21/2018 CR XR LUMBAR SPINE COMPLETE from 09/26/2020 FINDINGS: Bones: The last intervertebral disc space is designated the L5/S1 level for the numbering purpose of this examination. The vertebral body heights are well maintained. Stable grade 2 spondylolisthesis of L5 on S1 with bilateral L5 spondylolysis present. Multilevel degenerative endplate signal changes are present. Cord: The conus tip ends at the T12 level. It is of normal size and signal intensity. T12-L1: There is a mild diffuse disc bulge. There is no significant central spinal canal stenosis.Th ere is mild bilateral neural foraminal narrowing. L1-2: There is a mild diffuse disc bulge. No significant central spinal canal stenosis is present. There is mild bilateral neural foraminal narrowing. L2-3: There is a mild diffuse disc bulge. No focal disc herniation. No significant central spinal c anal stenosis. Degenerative changes of the facets are noted. Mild bilateral neural foraminal narrow ing is present. L3-4: There is a diffuse disc bulge no focal disc herniation. Degenerative changes of the facets are noted. Cvla-qx-emvaetkd narrowing of the central spinal canal is noted. There is again seen a syno vial cyst arising from the left facet joint and projecting into the spinal canal. Iskh-vs-obrzqrmc b ilateral neural foraminal narrowing is present. L4-5: No disc herniations or bulges are present. Mild narrowing of the central spinal canal is noted in the transverse diameter. There are degenerative changes of the facets and ligamentum flavum hyper trophy.Moderately severe bilateral neural foraminal stenosis is present. L5-S1: No disc herniations or bulges are present. There is narrowing of the transverse diameter of th e central spinal canal. There is marked bilateral neural foraminal stenosis. Soft tissues: The visualized SI joints are well maintained. There are again seen perineural root sle royer cysts at S2. The paraspinal soft tissues are unremarkable. IMPRESSION: Overall, there has been no significant change in appearance of the lumbar spine since 04/21/2018. Mul tilevel central spinal canal neural foraminal stenosis is present as described above. DATA REPOSITORY:
== END 2020-10-20 02:58 ==
PROVIDERS: PCP Family Medicine; Visit Provider Family Medicine
DX: M54.32 Sciatica, left side (principal); M48.061 Spinal stenosis, lumbar region without neurogenic claudication
CPT/HCPCS: 72148

== ENCOUNTER 2020-10-30 03:14 | Outpatient (CLI) | payer MEDICARE, OTHER, SELFPAY ==
[2020-10-30 07:51] LABS: Abs Immature Grans 0.01 10^3/uL (0.0-0.06); Absolute Basophil Count 0.06 10^3/uL (0.0-0.2); Absolute Eosinophil Count 0.44 10^3/uL (0.0-0.7); Absolute Lymphocyte Count 0.85 10^3/uL (1.2-3.4); Absolute Monocyte Count 0.21 10^3/uL (0.1-0.8); Absolute Neutrophil Count 2.38 10^3/uL (1.2-6.7); Basophils % 1.5; Eosinophils % 11.1; HCT 32.2 % (40.0-50.0); HGB 10.2 g/dL (13.5-17.5); Immature Grans % 0.3; Lymphocytes % 21.5; MCH 30.8 pg (27.0-33.0); MCHC 31.7 % (32.0-36.0); MCV 97.3 fL (80-95); MPV 9.5 fL (8.0-11.0); Monocytes % 5.3; Neutrophils % 60.3; Nucleated RBC 0 %; Platelet Count 201 10^3/uL (130-400); RBC 3.31 10^6/uL (4.36-5.78); RDW 12.7 % (11.8-14.1); RDW-SD 45.8 fL; WBC 3.95 10^3/uL (4.4-10.8)
[2020-10-30 08:15] LABS: ALT 22 U/L (16-63); AST 17 U/L (15-37); Albumin 3.6 g/dL (3.4-5.0); Alkaline Phosphatase 56 U/L (46-116); Anion Gap 9.1 mmol/L (3-11); BUN 66 mg/dL (7-18); Bilirubin, Total 0.2 mg/dL (0.2-1.0); CO2 27.9 mmol/L (21.0-32.0); CREATININE 2.5 mg/dL (0.70-1.30); Calcium 9.1 mg/dL (8.5-10.1); Chloride 106 mmol/L (98-107); Estimated GFR 25.51 (mL/min/1.73m2); Ferritin 202 ng/mL (26-388); Glucose 99 mg/dL (74-106); Potassium 4.5 mmol/L (3.5-5.1); Sodium 143 mmol/L (136-145); Total Protein 6.8 g/dL (6.4-8.2)
== END 2020-10-30 03:15 | disposition home or self-care (01) ==
LOC: LBO 03:14
PROVIDERS: PCP Family Medicine; Visit Provider Internal Medicine Hematology & Oncology
DX: N18.31 Chronic kidney disease, stage 3a (principal); D63.1 Anemia in chronic kidney disease
CPT/HCPCS: 36415; 80053; 82728; 85025

== ENCOUNTER → 2020-11-20 12:47 | Outpatient (BNVA) | payer MEDICARE, OTHER, SELFPAY | PROVIDERS: PCP Family Medicine; Referring Provider Family Medicine; Visit Provider Psychiatry & Neurology Neurology | DX: I95.1 Orthostatic hypotension (principal); G20 Parkinson's disease; K59.00 Constipation, unspecified; I12.9 Hypertensive chronic kidney disease with stage 1 through stage 4 chronic kidney disease, or unspecified chronic kidney disease; N18.9 Chronic kidney disease, unspecified; R44.1 Visual hallucinations; T42.8X5A Adverse effect of antiparkinsonism drugs and other central muscle-tone depressants, initial encounter | CPT/HCPCS: 99214 ==

== ENCOUNTER 2020-11-27 02:15 | Outpatient (CLI) | payer MEDICARE, OTHER, SELFPAY ==
[2020-11-27 13:13] LABS: Absolute Basophil Count 0.05 10^3/uL (0.0-0.2); Absolute Eosinophil Count 0.18 10^3/uL (0.0-0.7); Absolute Lymphocyte Count 0.94 10^3/uL (1.2-3.4); Absolute Monocyte Count 0.25 10^3/uL (0.1-0.8); Absolute Neutrophil Count 2.86 10^3/uL (1.2-6.7); Basophils % 1.2; Eosinophils % 4.2; HCT 33.2 % (40.0-50.0); HGB 10.4 g/dL (13.5-17.5); MCH 30.5 pg (27.0-33.0); MCHC 31.3 % (32.0-36.0); MCV 97.4 fL (80-95); MPV 9.1 fL (8.0-11.0); Monocytes % 5.8; Neutrophils % 66.8; Nucleated RBC 0 %; Platelet Count 197 10^3/uL (130-400); RBC 3.41 10^6/uL (4.36-5.78); RDW 12.6 % (11.8-14.1); RDW-SD 45.1 fL; WBC 4.28 10^3/uL (4.4-10.8)
[2020-11-27 14:15] LABS: ALT 21 U/L (16-63); AST 13 U/L (15-37); Albumin 3.8 g/dL (3.4-5.0); Alkaline Phosphatase 53 U/L (46-116); Anion Gap 7.7 mmol/L (3-11); BUN 53 mg/dL (7-18); Bilirubin, Total 0.3 mg/dL (0.2-1.0); CO2 29.3 mmol/L (21.0-32.0); Chloride 103 mmol/L (98-107); Estimated GFR 33.01 (mL/min/1.73m2); Ferritin 171 ng/mL (26-388); Glucose 136 mg/dL (74-106); Potassium 4.9 mmol/L (3.5-5.1); Sodium 140 mmol/L (136-145); Total Protein 6.4 g/dL (6.4-8.2)
== END 2020-11-27 02:16 | disposition home or self-care (01) ==
PROVIDERS: PCP Family Medicine; Visit Provider Internal Medicine Hematology & Oncology
DX: N18.31 Chronic kidney disease, stage 3a (principal); D63.1 Anemia in chronic kidney disease
CPT/HCPCS: 36415; 80053; 82728; 85025

== ENCOUNTER 2020-12-25 02:46 | Outpatient (CLI) | payer MEDICARE, OTHER, SELFPAY ==
[2020-12-25 14:12] LABS: Absolute Basophil Count 0.06 10^3/uL (0.0-0.2); Absolute Eosinophil Count 0.24 10^3/uL (0.0-0.7); Absolute Lymphocyte Count 1.08 10^3/uL (1.2-3.4); Absolute Monocyte Count 0.33 10^3/uL (0.1-0.8); Absolute Neutrophil Count 3.49 10^3/uL (1.2-6.7); Basophils % 1.2; Eosinophils % 4.6; HCT 29.9 % (40.0-50.0); HGB 9.4 g/dL (13.5-17.5); Lymphocytes % 20.8; MCH 30.8 pg (27.0-33.0); MCHC 31.4 % (32.0-36.0); MPV 9.2 fL (8.0-11.0); Monocytes % 6.3; Neutrophils % 67.1; Nucleated RBC 0 %; Platelet Count 239 10^3/uL (130-400); RBC 3.05 10^6/uL (4.36-5.78); RDW 12.8 % (11.8-14.1); RDW-SD 45.7 fL
== END 2020-12-25 02:47 | disposition home or self-care (01) ==
LOC: LBO 02:46
PROVIDERS: PCP Family Medicine; Visit Provider Internal Medicine Hematology & Oncology
DX: N18.31 Chronic kidney disease, stage 3a (principal); D63.1 Anemia in chronic kidney disease
CPT/HCPCS: 36415; 85025

== ENCOUNTER 2021-01-22 02:34 | Outpatient (CLI) | payer MEDICARE, OTHER, SELFPAY ==
[2021-01-22 13:51] LABS: Abs Immature Grans 0.01 10^3/uL (0.0-0.06); Absolute Basophil Count 0.06 10^3/uL (0.0-0.2); Absolute Eosinophil Count 0.23 10^3/uL (0.0-0.7); Absolute Lymphocyte Count 1.05 10^3/uL (1.2-3.4); Absolute Neutrophil Count 2.77 10^3/uL (1.2-6.7); Basophils % 1.4; Eosinophils % 5.2; HCT 29.8 % (40.0-50.0); HGB 9.6 g/dL (13.5-17.5); Immature Grans % 0.2; Lymphocytes % 23.8; MCH 31.3 pg (27.0-33.0); MCHC 32.2 % (32.0-36.0); MCV 97.1 fL (80-95); Monocytes % 6.8; Neutrophils % 62.6; Nucleated RBC 0 %; Platelet Count 191 10^3/uL (130-400); RBC 3.07 10^6/uL (4.36-5.78); RDW-SD 45.8 fL; WBC 4.42 10^3/uL (4.4-10.8)
== END 2021-01-22 02:35 | disposition home or self-care (01) ==
LOC: LBO 02:34
PROVIDERS: PCP Family Medicine; Visit Provider Internal Medicine Hematology & Oncology
DX: N18.31 Chronic kidney disease, stage 3a (principal); D63.1 Anemia in chronic kidney disease
CPT/HCPCS: 36415; 85025

== ENCOUNTER 2021-02-19 04:36 | Outpatient (CLI) | payer MEDICARE, OTHER, SELFPAY ==
[2021-02-19 13:39] LABS: Abs Immature Grans 0.01 10^3/uL (0.0-0.06); Absolute Basophil Count 0.06 10^3/uL (0.0-0.2); Absolute Eosinophil Count 0.23 10^3/uL (0.0-0.7); Absolute Lymphocyte Count 1.02 10^3/uL (1.2-3.4); Absolute Monocyte Count 0.25 10^3/uL (0.1-0.8); Absolute Neutrophil Count 3.02 10^3/uL (1.2-6.7); Basophils % 1.3; HCT 33.5 % (40.0-50.0); HGB 10.5 g/dL (13.5-17.5); Immature Grans % 0.2; Lymphocytes % 22.2; MCH 30.5 pg (27.0-33.0); MCHC 31.3 % (32.0-36.0); MCV 97.4 fL (80-95); Monocytes % 5.4; Neutrophils % 65.9; Nucleated RBC 0 %; Platelet Count 221 10^3/uL (130-400); RBC 3.44 10^6/uL (4.36-5.78); RDW 12.8 % (11.8-14.1); RDW-SD 46.1 fL; WBC 4.59 10^3/uL (4.4-10.8)
[2021-02-19 13:57] LABS: ALT 18 U/L (16-63); AST 17 U/L (15-37); Alkaline Phosphatase 50 U/L (46-116); Anion Gap 6.4 mmol/L (3-11); BUN 47 mg/dL (7-18); Bilirubin, Total 0.3 mg/dL (0.2-1.0); CO2 29.6 mmol/L (21.0-32.0); CREATININE 1.9 mg/dL (0.70-1.30); Calcium 9.1 mg/dL (8.5-10.1); Chloride 104 mmol/L (98-107); Estimated GFR 34.92 (mL/min/1.73m2); Glucose 175 mg/dL (74-106); Potassium 4.4 mmol/L (3.5-5.1); Sodium 140 mmol/L (136-145); Total Protein 6.9 g/dL (6.4-8.2)
== END 2021-02-19 04:37 | disposition home or self-care (01) ==
LOC: LBO 04:37
PROVIDERS: PCP Family Medicine; Visit Provider Internal Medicine Hematology & Oncology
DX: N18.31 Chronic kidney disease, stage 3a (principal); D63.1 Anemia in chronic kidney disease
CPT/HCPCS: 36415; 80053; 85025

== ENCOUNTER 2021-03-31 02:11 | Outpatient (CLI) | payer MEDICARE, OTHER, SELFPAY ==
[2021-03-31 13:11] LABS: Abs Immature Grans 0.01 10^3/uL (0.0-0.06); Absolute Basophil Count 0.04 10^3/uL (0.0-0.2); Absolute Eosinophil Count 0.21 10^3/uL (0.0-0.7); Absolute Lymphocyte Count 0.98 10^3/uL (1.2-3.4); Absolute Monocyte Count 0.26 10^3/uL (0.1-0.8); Absolute Neutrophil Count 3.33 10^3/uL (1.2-6.7); Basophils % 0.8; Eosinophils % 4.3; HCT 32.5 % (40.0-50.0); HGB 10.3 g/dL (13.5-17.5); Immature Grans % 0.2; Lymphocytes % 20.3; MCH 30.8 pg (27.0-33.0); MCHC 31.7 % (32.0-36.0); MCV 97.3 fL (80-95); MPV 9.1 fL (8.0-11.0); Monocytes % 5.4; Nucleated RBC 0 %; Platelet Count 211 10^3/uL (130-400); RBC 3.34 10^6/uL (4.36-5.78); RDW 12.7 % (11.8-14.1); RDW-SD 45.3 fL; WBC 4.83 10^3/uL (4.4-10.8)
[2021-03-31 13:36] LABS: ALT 25 U/L (16-63); AST 17 U/L (15-37); Albumin 3.9 g/dL (3.4-5.0); Alkaline Phosphatase 54 U/L (46-116); Anion Gap 8.5 mmol/L (3-11); BUN 45 mg/dL (7-18); Bilirubin, Total 0.2 mg/dL (0.2-1.0); CO2 28.5 mmol/L (21.0-32.0); Calcium 8.4 mg/dL (8.5-10.1); Chloride 103 mmol/L (98-107); Estimated GFR 32.92 (mL/min/1.73m2); Ferritin 218 ng/mL (26-388); Glucose 151 mg/dL (74-106); Potassium 5.1 mmol/L (3.5-5.1); Sodium 140 mmol/L (136-145); Total Protein 6.9 g/dL (6.4-8.2)
== END 2021-03-31 02:12 | disposition home or self-care (01) ==
LOC: LBO 02:11
PROVIDERS: PCP Family Medicine; Visit Provider Internal Medicine Medical Oncology
DX: D63.1 Anemia in chronic kidney disease (principal); N18.31 Chronic kidney disease, stage 3a
CPT/HCPCS: 36415; 80053; 82728; 85025

== ENCOUNTER → 2021-04-20 12:45 | Outpatient (BNVA) | payer MEDICARE, OTHER, SELFPAY | PROVIDERS: PCP Family Medicine; Visit Provider Psychiatry & Neurology Neurology | DX: I95.1 Orthostatic hypotension (principal); G20 Parkinson's disease; K59.00 Constipation, unspecified; N18.9 Chronic kidney disease, unspecified; I12.9 Hypertensive chronic kidney disease with stage 1 through stage 4 chronic kidney disease, or unspecified chronic kidney disease | CPT/HCPCS: 99213 ==

== ENCOUNTER 2021-04-23 03:12 | Outpatient (CLI) | payer MEDICARE, OTHER, SELFPAY ==
[2021-04-23 13:20] LABS: Abs Immature Grans 0.01 10^3/uL (0.0-0.06); Absolute Basophil Count 0.05 10^3/uL (0.0-0.2); Absolute Eosinophil Count 0.32 10^3/uL (0.0-0.7); Absolute Lymphocyte Count 0.82 10^3/uL (1.2-3.4); Absolute Neutrophil Count 2.77 10^3/uL (1.2-6.7); Basophils % 1.2; Eosinophils % 7.5; HCT 32.2 % (40.0-50.0); HGB 10.1 g/dL (13.5-17.5); Immature Grans % 0.2; Lymphocytes % 19.2; MCH 30.6 pg (27.0-33.0); MCHC 31.4 % (32.0-36.0); MCV 97.6 fL (80-95); Neutrophils % 64.9; Nucleated RBC 0 %; Platelet Count 216 10^3/uL (130-400); RDW 12.8 % (11.8-14.1); RDW-SD 45.7 fL; WBC 4.27 10^3/uL (4.4-10.8)
[2021-04-23 13:44] LABS: ALT 20 U/L (16-63); AST 13 U/L (15-37); Albumin 3.9 g/dL (3.4-5.0); Alkaline Phosphatase 47 U/L (46-116); Anion Gap 8.6 mmol/L (3-11); BUN 51 mg/dL (7-18); Bilirubin, Total 0.3 mg/dL (0.2-1.0); CO2 27.4 mmol/L (21.0-32.0); CREATININE 2.2 mg/dL (0.70-1.30); Chloride 104 mmol/L (98-107); Estimated GFR 29.49 (mL/min/1.73m2); Ferritin 179 ng/mL (26-388); Glucose 150 mg/dL (74-106); Potassium 4.6 mmol/L (3.5-5.1); Sodium 140 mmol/L (136-145); Total Protein 6.8 g/dL (6.4-8.2)
== END 2021-04-23 03:13 | disposition home or self-care (01) ==
LOC: LBO 03:12
PROVIDERS: PCP Family Medicine; Visit Provider Internal Medicine Hematology & Oncology
DX: N18.31 Chronic kidney disease, stage 3a (principal); D63.1 Anemia in chronic kidney disease
CPT/HCPCS: 36415; 80053; 82728; 85025

== ENCOUNTER 2021-05-13 16:25 | Outpatient (REF) | payer MEDICARE, OTHER, SELFPAY ==
--- NOTE | 2021-05-13 14:25 | SKI_PTH ---
PATIENT: Arvind Aparicio LOC: [facility] U#:[id number] AGE/SX: 71/M ROOM: RE05/13/[address]: Albert Peralta MD : [id number] BED: DIS: 05/13/2021 SPEC #: [id number] RECD: 05/13/21 18:12 STATUS: PHYLLIS REQ #: [id number] ASIF: 05/13/21 14:[address]: Albert Peralta DEPT: Surgical Specimen RECD BY: Mandy Kohler Tissues: 1 - SKIN BIOPSY(SHAVE/PUNCH) Procedures: IMMUNOPEROXIDASE STAIN SKIN LEVEL 4 Comments: [id number]
== END 2021-05-13 16:26 | disposition home or self-care (01) ==
LOC: LBN 16:25
PROVIDERS: PCP Family Medicine; Visit Provider Family Medicine
DX: C44.42 Squamous cell carcinoma of skin of scalp and neck (principal)
CPT/HCPCS: 88305; 88361

== ENCOUNTER 2021-05-28 02:19 | Outpatient (CLI) | payer MEDICARE, OTHER, SELFPAY ==
[2021-05-28 14:32] LABS: Abs Immature Grans 0.01 10^3/uL (0.0-0.06); Absolute Basophil Count 0.04 10^3/uL (0.0-0.2); Absolute Eosinophil Count 0.34 10^3/uL (0.0-0.7); Absolute Lymphocyte Count 1.07 10^3/uL (1.2-3.4); Absolute Monocyte Count 0.33 10^3/uL (0.1-0.8); Absolute Neutrophil Count 2.76 10^3/uL (1.2-6.7); Basophils % 0.9; Eosinophils % 7.5; HCT 29.9 % (40.0-50.0); HGB 9.6 g/dL (13.5-17.5); Immature Grans % 0.2; Lymphocytes % 23.5; MCH 30.7 pg (27.0-33.0); MCHC 32.1 % (32.0-36.0); MCV 95.5 fL (80-95); MPV 9.2 fL (8.0-11.0); Monocytes % 7.3; Neutrophils % 60.6; Nucleated RBC 0 %; Platelet Count 196 10^3/uL (130-400); RBC 3.13 10^6/uL (4.36-5.78); RDW 12.6 % (11.8-14.1); RDW-SD 43.9 fL; WBC 4.55 10^3/uL (4.4-10.8)
[2021-05-28 15:09] LABS: Albumin 3.9 g/dL (3.4-5.0); Alkaline Phosphatase 48 U/L (46-116); BUN 51 mg/dL (7-18); Bilirubin, Total 0.2 mg/dL (0.2-1.0); CREATININE 1.7 mg/dL (0.70-1.30); Estimated GFR 39.71 (mL/min/1.73m2); Glucose 135 mg/dL (74-106); Potassium 4.5 mmol/L (3.5-5.1); Sodium 142 mmol/L (136-145); Total Protein 6.9 g/dL (6.4-8.2)
[2021-05-28 15:10] LABS: ALT 25 U/L (16-63); AST 22 U/L (15-37); Anion Gap 8.1 mmol/L (3-11); CO2 30.9 mmol/L (21.0-32.0); Chloride 103 mmol/L (98-107); Ferritin 165 ng/mL (26-388)
== END 2021-05-28 02:20 | disposition home or self-care (01) ==
LOC: LBO 02:19
PROVIDERS: PCP Family Medicine; Visit Provider Internal Medicine Hematology & Oncology
DX: N18.31 Chronic kidney disease, stage 3a (principal); D63.1 Anemia in chronic kidney disease
CPT/HCPCS: 36415; 80053; 82728; 85025

== ENCOUNTER 2021-06-25 02:31 | Outpatient (CLI) | payer MEDICARE, OTHER, SELFPAY ==
[2021-06-25 14:36] LABS: Abs Immature Grans 0.01 10^3/uL (0.0-0.06); Absolute Basophil Count 0.06 10^3/uL (0.0-0.2); Absolute Monocyte Count 0.33 10^3/uL (0.1-0.8); Basophils % 1.4; Eosinophils % 7.2; HCT 31.7 % (40.0-50.0); Immature Grans % 0.2; MCH 30.9 pg (27.0-33.0); MCHC 31.5 % (32.0-36.0); MCV 97.8 fL (80-95); MPV 9.4 fL (8.0-11.0); Monocytes % 7.9; Neutrophils % 59.3; Nucleated RBC 0 %; Platelet Count 219 10^3/uL (130-400); RBC 3.24 10^6/uL (4.36-5.78); RDW 12.7 % (11.8-14.1); RDW-SD 45.4 fL; WBC 4.16 10^3/uL (4.4-10.8)
[2021-06-25 14:39] LABS: Absolute Neutrophil Count 2.47 10^3/uL (1.2-6.7)
[2021-06-25 14:49] LABS: ALT 21 U/L (16-63); AST 17 U/L (15-37); Albumin 3.9 g/dL (3.4-5.0); Alkaline Phosphatase 51 U/L (46-116); Anion Gap 8.6 mmol/L (3-11); BUN 46 mg/dL (7-18); Bilirubin, Total 0.2 mg/dL (0.2-1.0); CO2 28.4 mmol/L (21.0-32.0); CREATININE 1.6 mg/dL (0.70-1.30); Calcium 8.8 mg/dL (8.5-10.1); Chloride 105 mmol/L (98-107); Estimated GFR 42.58 (mL/min/1.73m2); Glucose 149 mg/dL (74-106); Potassium 4.4 mmol/L (3.5-5.1); Sodium 142 mmol/L (136-145); Total Protein 6.9 g/dL (6.4-8.2)
== END 2021-06-25 02:32 | disposition home or self-care (01) ==
LOC: LBO 02:31
PROVIDERS: PCP Family Medicine; Visit Provider Internal Medicine Hematology & Oncology
DX: D63.1 Anemia in chronic kidney disease (principal); N18.31 Chronic kidney disease, stage 3a
CPT/HCPCS: 36415; 80053; 85025

== ENCOUNTER 2021-07-23 03:52 | Outpatient (CLI) | payer MEDICARE, SELFPAY ==
[2021-07-23 13:35] LABS: Abs Immature Grans 0.02 10^3/uL (0.0-0.06); Absolute Basophil Count 0.07 10^3/uL (0.0-0.2); Absolute Eosinophil Count 0.34 10^3/uL (0.0-0.7); Absolute Lymphocyte Count 1.07 10^3/uL (1.2-3.4); Absolute Monocyte Count 0.31 10^3/uL (0.1-0.8); Absolute Neutrophil Count 4.19 10^3/uL (1.2-6.7); Basophils % 1.2; Eosinophils % 5.7; HCT 33.4 % (40.0-50.0); HGB 10.5 g/dL (13.5-17.5); Immature Grans % 0.3; Lymphocytes % 17.8; MCH 30.2 pg (27.0-33.0); MCHC 31.4 % (32.0-36.0); MPV 8.8 fL (8.0-11.0); Monocytes % 5.2; Neutrophils % 69.8; Nucleated RBC 0 %; Platelet Count 212 10^3/uL (130-400); RBC 3.48 10^6/uL (4.36-5.78); RDW 12.6 % (11.8-14.1); RDW-SD 44.5 fL
[2021-07-23 13:48] LABS: ALT 21 U/L (16-63); AST 15 U/L (15-37); Albumin 4.2 g/dL (3.4-5.0); Alkaline Phosphatase 60 U/L (46-116); Anion Gap 6.7 mmol/L (3-11); BUN 43 mg/dL (7-18); Bilirubin, Total 0.3 mg/dL (0.2-1.0); CO2 30.3 mmol/L (21.0-32.0); CREATININE 1.7 mg/dL (0.70-1.30); Calcium 9.1 mg/dL (8.5-10.1); Chloride 104 mmol/L (98-107); Estimated GFR 39.71 (mL/min/1.73m2); Glucose 165 mg/dL (74-106); Potassium 4.3 mmol/L (3.5-5.1); Sodium 141 mmol/L (136-145); Total Protein 7.4 g/dL (6.4-8.2)
== END 2021-07-23 03:53 | disposition home or self-care (01) ==
LOC: LBO 03:54
PROVIDERS: PCP Family Medicine; Visit Provider Internal Medicine Hematology & Oncology
DX: N18.31 Chronic kidney disease, stage 3a (principal); D63.1 Anemia in chronic kidney disease
CPT/HCPCS: 36415; 80053; 85025

== ENCOUNTER 2021-08-20 02:54 | Outpatient (CLI) | payer MEDICARE, SELFPAY ==
[2021-08-20 12:58] LABS: Abs Immature Grans 0.01 10^3/uL (0.0-0.06); Absolute Basophil Count 0.04 10^3/uL (0.0-0.2); Absolute Eosinophil Count 0.28 10^3/uL (0.0-0.7); Absolute Monocyte Count 0.31 10^3/uL (0.1-0.8); Absolute Neutrophil Count 2.54 10^3/uL (1.2-6.7); Eosinophils % 6.9; HGB 10.5 g/dL (13.5-17.5); Immature Grans % 0.2; Lymphocytes % 22.1; MCH 29.8 pg (27.0-33.0); MCHC 30.9 % (32.0-36.0); MCV 96.6 fL (80-95); MPV 9.4 fL (8.0-11.0); Monocytes % 7.6; Neutrophils % 62.2; Nucleated RBC 0 %; Platelet Count 212 10^3/uL (130-400); RBC 3.52 10^6/uL (4.36-5.78); RDW 12.5 % (11.8-14.1); RDW-SD 45.1 fL; WBC 4.08 10^3/uL (4.4-10.8)
[2021-08-20 13:07] LABS: ALT 30 U/L (16-63); AST 20 U/L (15-37); Alkaline Phosphatase 60 U/L (46-116); Anion Gap 5.9 mmol/L (3-11); BUN 39 mg/dL (7-18); Bilirubin, Total 0.2 mg/dL (0.2-1.0); CO2 32.1 mmol/L (21.0-32.0); CREATININE 1.6 mg/dL (0.70-1.30); Calcium 9.2 mg/dL (8.5-10.1); Chloride 103 mmol/L (98-107); Estimated GFR 42.58 (mL/min/1.73m2); Glucose 128 mg/dL (74-106); Potassium 4.5 mmol/L (3.5-5.1); Sodium 141 mmol/L (136-145); Total Protein 7.3 g/dL (6.4-8.2)
== END 2021-08-20 02:55 | disposition home or self-care (01) ==
LOC: LBO 02:54
PROVIDERS: PCP Family Medicine; Visit Provider Internal Medicine Hematology & Oncology
DX: N18.31 Chronic kidney disease, stage 3a (principal); D63.1 Anemia in chronic kidney disease
CPT/HCPCS: 36415; 80053; 85025

== ENCOUNTER 2021-09-17 04:15 | Outpatient (CLI) | payer MEDICARE, SELFPAY ==
[2021-09-17 08:42] LABS: Abs Immature Grans 0.01 10^3/uL (0.0-0.06); Absolute Basophil Count 0.06 10^3/uL (0.0-0.2); Absolute Eosinophil Count 0.36 10^3/uL (0.0-0.7); Absolute Lymphocyte Count 0.85 10^3/uL (1.2-3.4); Absolute Monocyte Count 0.31 10^3/uL (0.1-0.8); Absolute Neutrophil Count 3.13 10^3/uL (1.2-6.7); Basophils % 1.3; Eosinophils % 7.6; HCT 35.5 % (40.0-50.0); Immature Grans % 0.2; MCV 96.7 fL (80-95); MPV 8.9 fL (8.0-11.0); Monocytes % 6.6; Neutrophils % 66.3; Nucleated RBC 0 %; Platelet Count 222 10^3/uL (130-400); RBC 3.67 10^6/uL (4.36-5.78); RDW 12.7 % (11.8-14.1); RDW-SD 45.2 fL; WBC 4.72 10^3/uL (4.4-10.8)
[2021-09-17 09:18] LABS: ALT 26 U/L (16-63); AST 16 U/L (15-37); Albumin 3.8 g/dL (3.4-5.0); Alkaline Phosphatase 62 U/L (46-116); Anion Gap 7.8 mmol/L (3-11); BUN 46 mg/dL (7-18); Bilirubin, Total 0.2 mg/dL (0.2-1.0); CO2 27.2 mmol/L (21.0-32.0); CREATININE 1.6 mg/dL (0.70-1.30); Calcium 9.4 mg/dL (8.5-10.1); Chloride 105 mmol/L (98-107); Estimated GFR 42.58 (mL/min/1.73m2); Ferritin 156 ng/mL (26-388); Glucose 104 mg/dL (74-106); Potassium 4.3 mmol/L (3.5-5.1); Sodium 140 mmol/L (136-145); Total Protein 7.2 g/dL (6.4-8.2)
== END 2021-09-17 04:16 | disposition home or self-care (01) ==
LOC: LBO 04:16
PROVIDERS: PCP Family Medicine; Visit Provider Internal Medicine Hematology & Oncology
DX: D63.1 Anemia in chronic kidney disease (principal); N18.31 Chronic kidney disease, stage 3a
CPT/HCPCS: 36415; 80053; 82728; 85025

== ENCOUNTER 2021-10-15 04:14 | Outpatient (CLI) | payer MEDICARE, SELFPAY ==
[2021-10-15 13:07] LABS: Abs Immature Grans 0.01 10^3/uL (0.0-0.06); Absolute Basophil Count 0.07 10^3/uL (0.0-0.2); Absolute Eosinophil Count 0.27 10^3/uL (0.0-0.7); Absolute Lymphocyte Count 0.99 10^3/uL (1.2-3.4); Absolute Monocyte Count 0.32 10^3/uL (0.1-0.8); Absolute Neutrophil Count 3.41 10^3/uL (1.2-6.7); Basophils % 1.4; Eosinophils % 5.3; HCT 34.4 % (40.0-50.0); HGB 10.9 g/dL (13.5-17.5); Immature Grans % 0.2; Lymphocytes % 19.5; MCHC 31.7 % (32.0-36.0); MCV 94.8 fL (80-95); MPV 9.3 fL (8.0-11.0); Monocytes % 6.3; Neutrophils % 67.3; Nucleated RBC 0 %; Platelet Count 207 10^3/uL (130-400); RBC 3.63 10^6/uL (4.36-5.78); RDW 12.8 % (11.8-14.1); RDW-SD 44.9 fL; WBC 5.07 10^3/uL (4.4-10.8)
== END 2021-10-15 04:15 | disposition home or self-care (01) ==
LOC: LBO 04:15
PROVIDERS: PCP Family Medicine; Visit Provider Internal Medicine Hematology & Oncology
DX: D63.1 Anemia in chronic kidney disease (principal); N18.31 Chronic kidney disease, stage 3a
CPT/HCPCS: 36415; 85025

== ENCOUNTER → 2021-10-19 12:43 | Outpatient (BNVA) | payer MEDICARE, SELFPAY | PROVIDERS: PCP Family Medicine; Visit Provider Psychiatry & Neurology Neurology | DX: G20 Parkinson's disease (principal); I95.1 Orthostatic hypotension; K59.00 Constipation, unspecified; N18.9 Chronic kidney disease, unspecified; I12.9 Hypertensive chronic kidney disease with stage 1 through stage 4 chronic kidney disease, or unspecified chronic kidney disease | CPT/HCPCS: 99214 ==

== ENCOUNTER 2021-11-12 02:59 | Outpatient (CLI) | payer MEDICARE, SELFPAY ==
[2021-11-12 12:09] LABS: Abs Immature Grans 0.01 10^3/uL (0.0-0.06); Absolute Basophil Count 0.07 10^3/uL (0.0-0.2); Absolute Eosinophil Count 0.27 10^3/uL (0.0-0.7); Absolute Lymphocyte Count 0.79 10^3/uL (1.2-3.4); Absolute Monocyte Count 0.36 10^3/uL (0.1-0.8); Absolute Neutrophil Count 4.08 10^3/uL (1.2-6.7); Basophils % 1.3; Eosinophils % 4.8; HCT 34.7 % (40.0-50.0); HGB 10.9 g/dL (13.5-17.5); Immature Grans % 0.2; Lymphocytes % 14.2; MCH 29.9 pg (27.0-33.0); MCHC 31.4 % (32.0-36.0); MCV 95 fL (80-95); MPV 9.2 fL (8.0-11.0); Monocytes % 6.5; Platelet Count 218 10^3/uL (130-400); RBC 3.65 10^6/uL (4.36-5.78); RDW 13.2 % (11.8-14.1); RDW-SD 46.3 fL; WBC 5.58 10^3/uL (4.4-10.8)
[2021-11-12 12:20] LABS: ALT 13 U/L (16-63); AST 17 U/L (15-37); Albumin 3.9 g/dL (3.4-5.0); Alkaline Phosphatase 63 U/L (46-116); Anion Gap 7.1 mmol/L (3-11); BUN 40 mg/dL (7-18); Bilirubin, Total 0.3 mg/dL (0.2-1.0); CO2 28.9 mmol/L (21.0-32.0); CREATININE 1.4 mg/dL (0.70-1.30); Calcium 8.6 mg/dL (8.5-10.1); Chloride 105 mmol/L (98-107); Estimated GFR 49.68 (mL/min/1.73m2); Glucose 133 mg/dL (74-106); Potassium 4.6 mmol/L (3.5-5.1); Sodium 141 mmol/L (136-145); Total Protein 7.1 g/dL (6.4-8.2)
== END 2021-11-12 03:00 | disposition home or self-care (01) ==
LOC: LBO 02:59
PROVIDERS: PCP Family Medicine; Visit Provider Internal Medicine Hematology & Oncology
DX: N18.31 Chronic kidney disease, stage 3a (principal); D63.1 Anemia in chronic kidney disease
CPT/HCPCS: 36415; 80053; 85025

== ENCOUNTER → 2021-12-02 11:14 | Outpatient (BNVA) | payer MEDICARE, SELFPAY | PROVIDERS: PCP Family Medicine; Referring Provider Family Medicine; Visit Provider Psychiatry & Neurology Neurology | DX: G20 Parkinson's disease (principal); I95.1 Orthostatic hypotension; K59.00 Constipation, unspecified; I12.9 Hypertensive chronic kidney disease with stage 1 through stage 4 chronic kidney disease, or unspecified chronic kidney disease; N18.9 Chronic kidney disease, unspecified | CPT/HCPCS: 99214 ==

== ENCOUNTER → 2021-12-04 13:31 | Outpatient (BNVA) | payer MEDICARE, SELFPAY | PROVIDERS: PCP Family Medicine; Referring Provider Family Medicine; Visit Provider Physical Therapy Assistant | DX: Z86.010 Personal history of colon polyps (principal); Z80.0 Family history of malignant neoplasm of digestive organs; Z12.11 Encounter for screening for malignant neoplasm of colon ==

== ENCOUNTER 2021-12-10 03:09 | Outpatient (CLI) | payer MEDICARE, SELFPAY ==
[2021-12-10 12:10] LABS: Abs Immature Grans 0.01 10^3/uL (0.0-0.06); Absolute Basophil Count 0.06 10^3/uL (0.0-0.2); Absolute Lymphocyte Count 0.81 10^3/uL (1.2-3.4); Absolute Monocyte Count 0.31 10^3/uL (0.1-0.8); Absolute Neutrophil Count 2.88 10^3/uL (1.2-6.7); Basophils % 1.4; Eosinophils % 6.9; HCT 35.2 % (40.0-50.0); HGB 11.4 g/dL (13.5-17.5); Immature Grans % 0.2; Lymphocytes % 18.5; MCH 30.4 pg (27.0-33.0); MCHC 32.4 % (32.0-36.0); MCV 94 fL (80-95); MPV 9.2 fL (8.0-11.0); Monocytes % 7.1; Neutrophils % 65.9; Platelet Count 222 10^3/uL (130-400); RBC 3.75 10^6/uL (4.36-5.78); RDW 12.9 % (11.8-14.1); RDW-SD 44.7 fL; WBC 4.37 10^3/uL (4.4-10.8)
[2021-12-10 12:24] LABS: ALT 9 U/L (16-63); AST 20 U/L (15-37); Alkaline Phosphatase 67 U/L (46-116); Anion Gap 7.3 mmol/L (3-11); BUN 49 mg/dL (7-18); Bilirubin, Total 0.3 mg/dL (0.2-1.0); CO2 30.7 mmol/L (21.0-32.0); CREATININE 1.5 mg/dL (0.70-1.30); Chloride 104 mmol/L (98-107); Estimated GFR 45.87 (mL/min/1.73m2); Glucose 123 mg/dL (74-106); Potassium 4.4 mmol/L (3.5-5.1); Sodium 142 mmol/L (136-145); Total Protein 7.2 g/dL (6.4-8.2)
== END 2021-12-10 03:10 | disposition home or self-care (01) ==
LOC: LBO 03:09
PROVIDERS: PCP Family Medicine; Visit Provider Internal Medicine Hematology & Oncology
DX: N18.31 Chronic kidney disease, stage 3a (principal); D63.1 Anemia in chronic kidney disease
CPT/HCPCS: 36415; 80053; 85025

== ENCOUNTER 2022-01-05 08:56 | Day surgery (SDC) | payer MEDICARE, SELFPAY ==
--- NOTE | 2022-01-04 18:29 | COLE_ITS ---
Colonoscopy Report Date of procedure: 01/05/22 Pre-op diagnosis general: History of adenomatous polyps/sister + colorectal canc er/anemia (chronic) Post-op diagnosis procedure note: other (Mckeon diverticula /polyps x2) Surgeon: Jackie Price Anesthesia Type: General:No Airway Estimated blood loss (mL): 1 Complications: None Disposition: same day Prep: Miralax/Dulcolax Retraction Time: 9 Procedure Description: After informed consent was obtained the patient was taken to the procedure room and placed in a left decubitous position. Monitors were applied and a time out was done. The patients name, date of , procedure, allergies to medications and metal in their body was reviewed. The patient was then sedated. Once sedated and comfortable a rectal exam was done. External exam was normal. Internal exam revealed a normal sphincter tone and no palpable masses. The scope was then introduced and retrofelexed. No internal hemorrhoids were identified. The scope was then advanced to the cecum difficulty. The TI and appendiceal orifice were identified. The prep was BB PS 2 in all segments for a total of 6. The colon is lavaged with a liter of saline. The scope was then slowly retracted over 9 minutes back into the rectum. He has moderate diverticula in the sigmoid colon. These do extend all the way over to the cecum. There is no signs of active bleeding or infection. He has x2 5 mm flat polyps at 80 cm. These are removed with a cold forcep. All specimen is retrieved and no bleeding is noted. The mucosa appears pink and healthy. The scope was removed and the patient was woken up and taken back to Same day surgery in stable condition. The patient tolerated the procedure well and there were no immediate complications. Follow up: The patient does not require any further colonoscopies, Unless they develop changes in bowel habits or other new gastrointestinal complaints.
--- NOTE | 2022-01-04 18:30 | PDOC.DSDIS_ITS ---
Discharge Plan Disposition Patient Disposition: HOME Condition: Good Discharge Details Reason For Visit: Colon scope Attending Provider: Jackie Price Primary Care Provider: Albert Peralta Home Meds and New Rx's Prescriptions: No Action Aranesp (in polysorbate) 200 mcg/mL solution 100 mcg SC Q4W PRN (Reason: anemia) docusate sodium 100 mg capsule 200 mg PO QHS PRN hydrocodone-acetaminophen 7.5-325 mg tablet 1 tab PO BID MDD 2 tab PRN (Reason: pain) Qty: 56 0RF melatonin 3 mg tablet 3 mg PO HS PRN vitamin B complex [B Complex-Vitamin B12] Tablet 1 tab PO DAILY polyethylene glycol 3350 [Miralax] 17 gram/dose powder 17 g PO DAILY PRN lisinopril 30 mg tablet 30 mg PO DAILY amantadine HCl 100 mg capsule 100 mg PO DAILY Qty: 90 3RF carbidopa-levodopa 25-100 mg tablet extended release 1 tab PO BID Qty: 180 3RF Rx Instructions: Take am and lunch time. lovastatin 40 mg tablet 40 mg PO DAILY Qty: 90 3RF amlodipine 5 mg tablet 5 mg PO DAILY Qty: 90 3RF paroxetine HCl 20 mg tablet 20 mg PO DAILY Qty: 90 3RF ICaps AREDS2 250 mg-200 unit -12.5 mg-1 mg Capsule 1 cap PO BID Discharge Instructions Additional Instructions: DSU Colonoscopy Post- Op Instructions Instructions for Everyone who is given Anesthesia: For your safety, please do the following for the next twenty-four (24) hours: *Do Not operate a motor vehicle (car, truck, motorcycle, etc.) *Do Not drink alcoholic beverages or use any recreational drugs for the first 24 hours or while taking pain medications. The medications in your body may have a reaction that can be dangerous. *Do Not make any important decisions or sign any important papers. Findings: X2 small polyps Moderate diverticular disease Follow up: My office will send a letter in 2 to 3 weeks time, detailing as to what type of polyps they were. Make sure you are moving your bowels on a regular basis and not straining to go to the bathroom No further screening colonoscopies are required Of course, you should continue to have a yearly physical exam including a rectal exam, and stool for hemoccult blood testing (testing the stool for microscopic blood.) If you should ever notice any pain or difficulty having a bowel movement, blood in the stool, unexplained weight loss, or change in your bowel habits, please contact your health provider 1. No lifting over 20 pounds or strenuous activity for the first 24 hours after your procedure. After 24 hours there are no restrictions on your activity but you may feel fatigued for a few days. 2. After you arrive home you may have a light meal and return to your normal diet as you can tolerate it without feeling sick to your stomach. 3. You may have a bloated, gaseous feeling in your belly (abdomen) after a colonoscopy. Passing gas and belching will help. Walking or lying down on your left side with your knees flexed may relieve the discomfort. Call the office at [phone] (Office) or [phone] (Hospital) right away if you notice any of the following: a.Vomiting of blood or ?coffee ground stools?. b.Rectal bleeding 1Tbsp, blood clots or continuous bleeding. c.Severe belly (abdominal) pain. d.A hard distended belly (abdomen) and an inability to pass gas. 4. Please don?t expect to have a normal BM (bowel movement) for 2-3 days after your procedure. 5. If there are questions regarding the findings of your procedure, please contact your doctor 6. If you are unable to contact your doctor with a problem, contact the hospital at [phone]. 7. Continue all your regular medications unless directed otherwise. I understand the above instructions and have no questions. Signature of Patient or Adult Escort Name of Responsible Adult Escort Signature of Nurse Date/Time Activity:: See above Diet:: See above Discharge Orders Discharge Orders: Discharge Order (Routine); Ordered 01/04/22 Ordered By: Jackie Price
[2022-01-05 09:06] VITALS: BP 183/89; PULSE 87; RESP 16; TEMP 36.2; O2SAT 100
[2022-01-05] MEDS: Lactated Ringers 1,000 ML 80 ML IV (09:37)
--- NOTE | 2022-01-05 12:15 | ANES.PREOP_ITS ---
General Info Date of Service Date Performed: 01/05/22 Height: 5 ft 8 in Weight: 73 kg Body Mass Index (BMI): 24.5 Surgical Procedure: Operation Date: 01/05/22 11:35 Proposed Procedure Side Surgeon alli Price, Meds Allergies and Home Medications Allergies Allergy/AdvReac Type Severity Reaction Status Date / Time No Known Allergies Allergy Verified 01/05/22 09:01 Home Medication Medication Instructions Recorded vit C 250 mg-vit E 200 unit-zinc 1 cap PO BID 06/05/19 ox 12.5 rr-dzrcll-qinsjz-zeax capsule (ICaps AREDS2) melatonin 3 mg tablet 3 mg PO HS PRN 03/20/20 vitamin B complex (B 1 tab PO DAILY 05/22/20 Complex-Vitamin B12 tablet) darbepoetin elias in polysorbat 200 100 mcg subcut Q4W PRN anemia 06/26/20 mcg/mL in polysorbate injection (Aranesp) docusate sodium 100 mg capsule 200 mg PO QHS PRN 11/20/20 lovastatin 40 mg tablet 40 mg PO DAILY #90 tab-caps 04/06/21 amlodipine 5 mg tablet 5 mg PO DAILY #90 tabs 08/14/21 amantadine HCl 100 mg capsule 100 mg PO DAILY #90 caps 10/19/21 paroxetine HCl 20 mg tablet 20 mg PO DAILY #90 tabs 11/16/21 carbidopa ER 25 mg-levodopa 100 mg 1 tab PO BID #180 tabs 12/02/21 tablet,extended release lisinopril 30 mg tablet 30 mg PO DAILY 12/04/21 polyethylene glycol 3350 17 17 g PO DAILY PRN 12/04/21 gram/dose oral powder (Miralax) hydrocodone 7.5 mg-acetaminophen 1 tab PO BID PRN pain #56 tabs 12/31/21 325 mg tablet Current Visit Medications: Current Medications Generic Name Dose Route Start Last Admin Trade Name Freq PRN Reason Stop Dose Admin Hyoscyamine Sulfate 0.125 mg 01/04/22 10:30 Hyoscyamine 0.125 Mg Sl/Oral/Chew SL DIRECTED PRN Ringer's Solution 1,000 mls @ 80 mls/hr 01/05/22 06:00 01/05/22 09:37 IV 02/03/22 23:59 80 mls/hr INFUSION STEFANIE Administration IV Miscellaneous Supplies 1 each 01/05/22 06:00 Iv Access IV 02/03/22 23:59 DIRECTED STEFANIE Ondansetron HCl 4 mg 01/04/22 10:30 Ondansetron 4 Mg/2 Ml Vial IVP Q4H PRN PRN Nausea / Vomiting Sodium Chloride 0 ml 01/05/22 06:00 Normal Saline Flush 10 Ml Syr IV 02/03/22 23:59 PRN PRN Sodium Chloride 0 ml 01/05/22 06:00 Normal Saline 10 Ml Vial IJ 02/03/22 23:59 DIRECTED PRN Sterile Water 0 ml 01/05/22 06:00 Water,Injection,Sterile 10 Ml Vial IJ 02/03/22 23:59 DIRECTED PRN PFSH Active Problems Active Problems: Problem Status Onset Code Dysplastic skin lesion L98.8 Pain in left hip M25.552 Sciatica of left side M54.32 BPH w urinary obs/LUTS N40.1, N13.8 CKD (chronic kidney disease) N18.9 Essential hypertension 08/06/13 I10 Depression 01/28/14 F32.9 Family history of colon cancer 01/28/14 Z80.0 Hyperlipidemia 03/05/13 E78.5 Tubular adenoma of colon 05/05/16 D12.6 Normocytic anemia D64.9 Constipation K59.00 Orthostatic hypotension I95.1 Chronic back pain 01/28/14 M54.9, G89.29 Medical History Medical History Hyperlipidemia Surgical History Surgical History colonoscopy (05/05/16) Tobacco Smoking/Tobacco Use Status: Current-Occasional Tobacco Type: pipe Passive smoking exposure: Yes Second hand exposure: No Alcohol Alcohol Intake: current Alcohol intake frequency: a few times a month Alcohol type: beer Substance Use Substance use: Never Vital Signs and Lab Results Vital Signs Most Recent Vital Signs in EMR: Most Recent Vital Signs Temp Pulse Resp BP Pulse Ox 36.2 C L 87 16 183/89 H 16 L 01/05/22 09:06 01/05/22 09:06 01/05/22 09:06 01/05/22 09:06 01/05/22 09:06 Manually Entered Vital Signs Most Recent Manually Entered Vital Signs: Adult Blood Pressure: 183/89 Heart Rate: 87 Respirations: 16 Oxygen Saturation (%): 100 Temperature (C): 36.2 C Pain Score (0-10 Scale): 0 Lab Results Blood Type / Crossmatch: No Data to Display Complete Blood Count: White Blood Count 4.37 10^3/uL (4.4-10.8) L 12/10/21 12:03 Red Blood Count 3.75 10^6/uL (4.36-5.78) L 12/10/21 12:03 Hemoglobin 11.4 g/dL (13.5-17.5) L 12/10/21 12:03 Hematocrit 35.2 % (40.0-50.0) L 12/10/21 12:03 Platelet Count 222 10^3/uL (130-400) 12/10/21 12:03 Complete Metabolic Panel: Sodium Level 142 mmol/L (136-145) 12/10/21 12:03 Potassium Level 4.4 mmol/L (3.5-5.1) 12/10/21 12:03 Chloride Level 104 mmol/L (98-107) 12/10/21 12:03 Carbon Dioxide Level 30.7 mmol/L (21.0-32.0) 12/10/21 12:03 Blood Urea Nitrogen 49 mg/dL (7-18) H 12/10/21 12:03 Creatinine 1.5 mg/dL (0.70-1.30) H 12/10/21 12:03 Estimated GFR/1.73 m2 45.87 (mL/min/1.73m2) 12/10/21 12:03 Calcium Level 9.0 mg/dL (8.5-10.1) 12/10/21 12:03 Albumin 4.0 g/dL (3.4-5.0) 12/10/21 12:03 Glucose Level 123 mg/dL (74-106) H 12/10/21 12:03 Liver Function Panel: Alanine Aminotransferase (ALT/SGPT) 9 U/L (16-63) L 12/10/21 12 :03 Aspartate Amino Transf (AST/SGOT) 20 U/L (15-37) 12/10/21 12:03 Coagulation Panel: No Data to Display Cardiac Panel: No Data to Display Arterial Blood Gas: No Data to Display Venous Blood Gas: No Data to Display Pancreas Panel: No Data to Display Thyroid Panel: No Data to Display Infectious Disease: No Data to Display Blood Cultures: No Data to Display Toxicology Panel: No Data to Display Anesthesia Assessment and Plan Anesthesia History Personal History: No History of Anesthesia Complications Family History: No Family History of Anesthesia Complications Exercise Tolerance Exercise Tolerance: Metabolic Equivalents>4 Pertinent Negatives Pertinent Negatives: No Symptoms of GERD, No Major Cardiovascular Symptoms or Complaints, No Major Pulmonary Symptoms or Complaints and No History of CVA/TIA Cardiac & Pulmonary Exam Cardiac Exam: Normal S1/S2 Heart Sounds Pulmonary Exam: Clear Bilateral Breath Sounds Implantable Cardiac Device Does patient have a Pacemaker or an ICD?: No Airway Exam Known Difficult Airway: No Mallampati Class: 1 Mouth Opening: Normal (> 3cm) Thyromental Distance: Greater than 3 cm Neck Range of Motion: Full ROM Neck Circumference: Normal Teeth Condition: Normal Dentition ASA Classification ASA Score: ASA 3 Emergency Case?: No NPO Status NPO Status: NPO Clears >2 hours, Solids >8 hours Anesthesia Plan Resuscitation Status: Full Code Anesthesia Technique: General Anesthesia Airway Planned: Natural Airway Monitors Used: Standard Monitors Preoperative Comments:: Will recieve dose of parkinsons medication before procedure
[2022-01-05 12:26] VITALS: BP 183/89; PULSE 87; RESP 16; TEMPC 36.2; O2SAT 100; BMI 24.5
--- NOTE | 2022-01-05 13:29 | W.PM.HP.N ---
Date of service: 01/05/22 Time of Service: 13:29 Assessment and Plan Assessment and plan (1) Family history of colon cancer: Status: Chronic Assessment and plan: Informed consent is obtained for the procedural (explained in simple layman's terms that the pt. and/or family could understand) explaining risks vs benefits and alternatives to the procedure and consequences if we do not do the procedure and need/rational for the procedure. Risks include but are not limited to: bleeding, infection, perforation of esophagus, stomach, colon, small intestines, bronchus or trachea, or PTX. This would necessitate emergency surgery to repair the damage w/ possible ostomy; and other associated complications w/ the required surgery. Also complications of anesthesia including aspiration, NC/CVA/. (2) Tubular adenoma of colon: Status: Resolved History of Present Illness Narrative: 71 y/o male with history of Parkinson's, CKD, HTN and depression presents for colonoscopy screening pre-op. His last screening was in 2016, which was remarkable for tubular adenoma. He reports a family history of colon cancer in his sister whom was dx in her late 60s. He denies any changes in bowel habits describing a chronic slowed GI movement. He denies bloody or black tarry stools, abdominal pain, diarrhea. He denies constitutional symptoms. Denies use of marijuana or any other recreational or illegal drugs. He denies chest pain, palpitations, dyspnea or dyspnea with exertion. He describes being physically active on a daily basis to maintain his independence. He walks, uses a stationary bike, performs daily balance exercises and boxing, average of 90 mins/day. He denies prior history or family history of adverse reactions or complications with anesthesia. The patient denies any history of stroke, NC, seizures, bleeding or clotting disorders. He denies having any implanted metal in his body. Patient is here today for colonoscopy. He did complete a bowel prep last p.m. The resulting effluent is clear yellow. He is not currently having any abdominal pain or nausea. He did not take his Parkinson's medications for the past 48 hours, and he did have the to him this AM. He is not currently having any chest pain/chest pressure or shortness of breath. He is having no fevers or coughs. Since he saw Nathaly in the office no changes in his medications or health status. All questions are answered. Patient is stable for the procedure today. 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 Brother , 26 Depression Maternal Grandfather No problems noted. Paternal Grandfather No problems noted. Maternal Grandmother No problems noted. Paternal Grandmother No problems noted. Other Family history of colon cancer Social History Smoking/Tobacco Use Status: Current-Occasional Tobacco Type: pipe Tobacco: How many years used: 50 Quit status: considering quitting Second Hand Exposure: No Smoking risk assessment performed?: Yes Alcohol Intake: current Alcohol Intake frequency: a few times a month Alcohol type: beer Drug use: Never Number of Children: 0 Pets and animals: No Sexually active: No What is your relationship status?: How often do you talk on the phone with friends or family?: decline to answer How often do you get together with friends or relatives?: decline to answer How often do you attend confucianist or tenriism services?: decline to answer Do you belong to any clubs or organized social groups?: decline to answer Panel score (0-1 are the most socially isolated patients): 1 What type of physical activity do you participate in: walking, regular exercise and yoga Duration: 60-90 minutes/day Heidy/Synagogue: [employer] Special heidy needs: No Seatbelt use: always Drive intox or ride w/intox jinriksha driver: No Do you feel safe at home: Yes Do you feel safe in your relationship?: Yes Meds Allergies and Home Medications Allergies Allergy/AdvReac Type Severity Reaction Status Date / Time No Known Allergies Allergy Verified 01/05/22 09:01 Home Medications Medication Instructions Recorded Confirmed Type vit C 250 mg-vit E 200 unit-zinc 1 cap PO BID 06/05/19 01/05/22 History ox 12.5 kw-zcguqp-eiqxfg-zeax capsule (ICaps AREDS2) melatonin 3 mg tablet 3 mg PO HS PRN 03/20/20 01/05/22 History vitamin B complex (B 1 tab PO DAILY 05/22/20 01/05/22 History Complex-Vitamin B12 tablet) darbepoetin elias in polysorbat 200 100 mcg subcut Q4W PRN anemia 06/26/20 01/05/22 History mcg/mL in polysorbate injection (Aranesp) docusate sodium 100 mg capsule 200 mg PO QHS PRN 11/20/20 01/04/22 History lovastatin 40 mg tablet 40 mg PO DAILY #90 tab-caps 04/06/21 01/05/22 Rx amlodipine 5 mg tablet 5 mg PO DAILY #90 tabs 08/14/21 01/05/22 Rx amantadine HCl 100 mg capsule 100 mg PO DAILY #90 caps 10/19/21 01/05/22 Rx paroxetine HCl 20 mg tablet 20 mg PO DAILY #90 tabs 11/16/21 01/05/22 Rx carbidopa ER 25 mg-levodopa 100 mg 1 tab PO BID #180 tabs 12/02/21 01/05/22 Rx tablet,extended release lisinopril 30 mg tablet 30 mg PO DAILY 12/04/21 01/05/22 History polyethylene glycol 3350 17 17 g PO DAILY PRN 12/04/21 01/04/22 History gram/dose oral powder (Miralax) hydrocodone 7.5 mg-acetaminophen 1 tab PO BID PRN pain #56 tabs 12/31/21 01/04/22 Rx 325 mg tablet Exam Narrative Exam Narrative: PHYSICAL EXAM GENERAL APPEARANCE: Alert, healthy appearance, oriented, in no acute distress SKIN: No rashes.? No breakdown HYDRATION: Well hydrated HEAD, EYES, EARS, NECK, THROAT: Head is normocephalic, pupils equal, round, reactive to light and accommodation, ocular movement intact, sclera clear and no jaundice. ?Dentition intact. NECK: Supple, Trachea midline. No JVD. LUNGS: normal respiration/nl chest excursion. ?Clear to auscultation B/l no R/R/W ?HEART: Regular rate and rhythm, EXTREMITY: No edema or cyanosis? no leg pain, redness, swelling.? tremor secondary to Parkinson's. Mild muscle wasting. ABDOMEN: non tender to palpation, no masses or distention, no hernias. Normal bowel sounds NEURO: no focal neuro deficits. Results Last Vital Signs Temp 36.2 C L 01/05/22 09:06 Pulse 87 01/05/22 09:06 Resp 16 01/05/22 09:06 BP 183/89 H 01/05/22 09:06 Pulse Ox 100 01/05/22 09:06
[2022-01-05 14:20] VITALS: BP 140/82; PULSE 69; RESP 18; TEMP 35.9; O2SAT 98
--- NOTE | 2022-01-05 14:27 | W.ANESPOSTOP ---
Postoperative Evaluation Date, Time and Location Date Performed: 01/05/22 Time Performed: 14:27 Patient Location: Day Surgery Unit Vital Signs Most Recent Imported Vital Signs: Most Recent Vital Signs Temp Pulse Resp BP Pulse Ox 36.2 C L 87 16 183/89 H 100 01/05/22 09:06 01/05/22 09:06 01/05/22 09:06 01/05/22 09:06 01/05/22 09:06 Most Recent Manually Entered Vital Signs: Adult Blood Pressure: 140/82 Heart Rate: 69 Respirations: 18 Oxygen Saturation (%): 96 Temperature (C): 35.9 C Pain Score (0-10 Scale): 0 Pain Score Most Recent Pain Score: Most Recent Pain Score Pain Level 0 01/05/22 09:06 Assessment Mental Status: Arousable with meaningful communication Airway and Respiratory Function: Patent airway with normal (patient baseline) respiratory exam Cardiovascular Function: Hemodynamically Stable Hydration Status: Adequately Hydrated Nausea & Vomiting: No Nausea or Vomiting Pain: Pt. Denies Any Pain Peripheral Nerve Block: Patient did not receive a nerve block
[2022-01-05 14:32] VITALS: BP 140/82; PULSE 69; RESP 18; TEMPC 35.9; O2SAT 96
[2022-01-05 14:43] VITALS: BP 137/77; PULSE 71; RESP 18; TEMP 36.5; O2SAT 98
--- NOTE | 2022-01-05 14:59 | BOWEL_PTH ---
PATIENT: Arvind Aparicio LOC: [facility] U#:[id number] AGE/SX: 71/M ROOM: RE01/05/[address]: Jackie Price : 1950 BED: DIS: 01/05/2022 SPEC #: [id number] RECD: 01/05/22 16:54 STATUS: PHYLLIS RE #: [id number] ASIF: 01/05/22 14:[address]: Jackie Price DEPT: Surgical Specimen RECD BY: Mandy Kohler ENTERED: 01/05/22 16:55 SP TYPE: Bowel OTHR DR: Albert Peralta MD Tissues: 1 - BIOPSY BOWEL Procedures: GROSS AND MICRO LEVEL 4 Comments: [id number]
== END 2022-01-05 15:30 | disposition home or self-care (01) ==
PROVIDERS: PCP Family Medicine; Visit Provider Surgery
PROC: 0DJD8ZZ Inspection of Lower Intestinal Tract, Via Natural or Artificial Opening Endoscopic (ICD-10-PCS; CPT 45378; principal; 2022-01-05 11:30)
DX: Z12.11 Encounter for screening for malignant neoplasm of colon (principal); K63.5 Polyp of colon; K57.30 Diverticulosis of large intestine without perforation or abscess without bleeding; Z86.010 Personal history of colon polyps; Z80.0 Family history of malignant neoplasm of digestive organs; I12.9 Hypertensive chronic kidney disease with stage 1 through stage 4 chronic kidney disease, or unspecified chronic kidney disease; N18.9 Chronic kidney disease, unspecified
CPT/HCPCS: 45380; 88305

== ENCOUNTER 2022-01-07 03:12 | Outpatient (CLI) | payer MEDICARE, SELFPAY ==
[2022-01-07 12:17] LABS: Abs Immature Grans 0.01 10^3/uL (0.0-0.06); Absolute Basophil Count 0.07 10^3/uL (0.0-0.2); Absolute Eosinophil Count 0.26 10^3/uL (0.0-0.7); Absolute Lymphocyte Count 0.98 10^3/uL (1.2-3.4); Absolute Monocyte Count 0.33 10^3/uL (0.1-0.8); Basophils % 1.4; HCT 34.2 % (40.0-50.0); HGB 10.7 g/dL (13.5-17.5); Immature Grans % 0.2; MCH 29.6 pg (27.0-33.0); MCHC 31.3 % (32.0-36.0); MCV 95 fL (80-95); MPV 8.9 fL (8.0-11.0); Monocytes % 6.4; Platelet Count 204 10^3/uL (130-400); RBC 3.61 10^6/uL (4.36-5.78); RDW-SD 45.3 fL; WBC 5.15 10^3/uL (4.4-10.8)
== END 2022-01-07 03:13 | disposition home or self-care (01) ==
LOC: LBO 03:12
PROVIDERS: PCP Family Medicine; Visit Provider Internal Medicine Hematology & Oncology
DX: D63.1 Anemia in chronic kidney disease (principal); N18.31 Chronic kidney disease, stage 3a
CPT/HCPCS: 36415; 85025

== ENCOUNTER 2022-01-11 06:02 | Day surgery (SDC) | payer MEDICARE, SELFPAY ==
[2022-01-11] MEDS: Tropicam./Phenyleph. (1/2.5%) 5 ML BTL OD ×3 (06:35→06:49)
[2022-01-11 06:43] VITALS: BP 140/71; PULSE 70; RESP 18; TEMP 36.5; O2SAT 98
--- NOTE | 2022-01-11 07:08 | W.ANESPRE ---
General Info Date of Service Date Performed: 01/11/22 Height: 5 ft 8 in Weight: 74.4 kg Body Mass Index (BMI): 24.9 Surgical Procedure: Operation Date: 01/11/22 07:40 Proposed Procedure Side Surgeon p Cataract Extraction with IOL Implant Right Storm Lerma MD Meds Allergies and Home Medications Allergies Allergy/AdvReac Type Severity Reaction Status Date / Time No Known Allergies Allergy Verified 01/11/22 06:37 Home Medication Medication Instructions Recorded vit C 250 mg-vit E 200 unit-zinc 1 cap PO BID 06/05/19 ox 12.5 oy-gphabd-ydkobt-zeax capsule (ICaps AREDS2) melatonin 3 mg tablet 3 mg PO HS PRN 03/20/20 vitamin B complex (B 1 tab PO DAILY 05/22/20 Complex-Vitamin B12 tablet) darbepoetin elias in polysorbat 200 100 mcg subcut Q4W PRN anemia 06/26/20 mcg/mL in polysorbate injection (Aranesp) docusate sodium 100 mg capsule 200 mg PO QHS PRN 11/20/20 lovastatin 40 mg tablet 40 mg PO DAILY #90 tab-caps 04/06/21 amlodipine 5 mg tablet 5 mg PO DAILY #90 tabs 08/14/21 amantadine HCl 100 mg capsule 100 mg PO DAILY #90 caps 10/19/21 paroxetine HCl 20 mg tablet 20 mg PO DAILY #90 tabs 11/16/21 carbidopa ER 25 mg-levodopa 100 mg 1 tab PO BID #180 tabs 12/02/21 tablet,extended release polyethylene glycol 3350 17 17 g PO DAILY PRN 12/04/21 gram/dose oral powder (Miralax) hydrocodone 7.5 mg-acetaminophen 1 tab PO BID PRN pain #56 tabs 12/31/21 325 mg tablet Current Visit Medications: Current Medications Generic Name Dose Route Start Last Admin Trade Name Freq PRN Reason Stop Dose Admin Acetaminophen 1,000 mg 01/11/22 06:00 Acetaminophen 500 Mg Tab PO Q4H PRN PRN Miscellaneous Medication 0 ml 01/11/22 06:00 Prednisolone 1%, Moxifloxacin 0.5%, Nepafenac 0.1% 5ml Btl OD DIRECTED STEFANIE Miscellaneous Medication 0 ml 01/11/22 06:00 06/27/22 06:49 Tropicam./Phenyleph. (1/2.5%) 5 Ml Btl OD 1 drp DIRECTED STEFANIE Administration Tetracaine HCl 0 ml 01/11/22 06:00 Tetracaine 0.5% 4 Ml Btl OD DIRECTED STEFANIE PFSH Active Problems Active Problems: Problem Status Onset Code Dysplastic skin lesion L98.8 Pain in left hip M25.552 Sciatica of left side M54.32 BPH w urinary obs/LUTS N40.1, N13.8 CKD (chronic kidney disease) N18.9 Essential hypertension 08/06/13 I10 Depression 01/28/14 F32.9 Family history of colon cancer 01/28/14 Z80.0 Hyperlipidemia 03/05/13 E78.5 Tubular adenoma of colon 05/05/16 D12.6 Normocytic anemia D64.9 Constipation K59.00 Orthostatic hypotension I95.1 Chronic back pain 01/28/14 M54.9, G89.29 Medical History Medical History Hyperlipidemia Surgical History Surgical History colonoscopy (05/05/16) Tobacco Smoking/Tobacco Use Status: Current-Occasional Tobacco Type: pipe Passive smoking exposure: Yes Second hand exposure: No Alcohol Alcohol Intake: current Alcohol intake frequency: a few times a month Alcohol type: beer Substance Use Substance use: Never Vital Signs and Lab Results Vital Signs Most Recent Vital Signs in EMR: Most Recent Vital Signs Temp Pulse Resp BP Pulse Ox 36.5 C 70 18 140/71 98 01/11/22 06:43 01/11/22 06:43 01/11/22 06:43 01/11/22 06:43 01/11/22 06:43 Lab Results Blood Type / Crossmatch: No Data to Display Complete Blood Count: White Blood Count 5.15 10^3/uL (4.4-10.8) 01/07/22 12:11 Red Blood Count 3.61 10^6/uL (4.36-5.78) L 01/07/22 12:11 Hemoglobin 10.7 g/dL (13.5-17.5) L 01/07/22 12:11 Hematocrit 34.2 % (40.0-50.0) L 01/07/22 12:11 Platelet Count 204 10^3/uL (130-400) 01/07/22 12:11 Complete Metabolic Panel: No Data to Display Liver Function Panel: No Data to Display Coagulation Panel: No Data to Display Cardiac Panel: No Data to Display Arterial Blood Gas: No Data to Display Venous Blood Gas: No Data to Display Pancreas Panel: No Data to Display Thyroid Panel: No Data to Display Infectious Disease: No Data to Display Blood Cultures: No Data to Display Toxicology Panel: No Data to Display Anesthesia Assessment and Plan Anesthesia History Personal History: No History of Anesthesia Complications Family History: No Family History of Anesthesia Complications Exercise Tolerance Exercise Tolerance: Metabolic Equivalents>4 Cardiac & Pulmonary Exam Cardiac Exam: Normal S1/S2 Heart Sounds Pulmonary Exam: Clear Bilateral Breath Sounds Implantable Cardiac Device Does patient have a Pacemaker or an ICD?: No Airway Exam Known Difficult Airway: No Mallampati Class: 1 Mouth Opening: Normal (> 3cm) Thyromental Distance: Greater than 3 cm Neck Range of Motion: Full ROM Neck Circumference: Normal Teeth Condition: Normal Dentition ASA Classification ASA Score: ASA 3 Emergency Case?: No NPO Status NPO Status: NPO Clears >2 hours, Solids >8 hours Anesthesia Plan Resuscitation Status: Full Code Anesthesia Technique: MAC Anesthesia Airway Planned: Natural Airway Monitors Used: Standard Monitors
[2022-01-11 07:12] VITALS: BMI 24.9
[2022-01-11] MEDS: Tetracaine 0.5% 4 ML BTL OD (07:33)
[2022-01-11] MEDS: Balanced Salt Soln.-PLUS 500 ML BAG (07:43)
[2022-01-11] MEDS: Duovisc Viscoelastic System EACH 1 EACH (07:44)
[2022-01-11] MEDS: Lidocaine 2% Jelly 6 ML SYR (07:44)
[2022-01-11] MEDS: Povidone-Iodine Ophth 30 ML BTL (07:44)
[2022-01-11 08:05] VITALS: BP 145/75; PULSE 69; RESP 17; TEMP 36.5; O2SAT 98
--- NOTE | 2022-01-11 08:06 | W.PM.DSUDISC ---
Discharge Plan Disposition Patient Disposition: HOME Condition: Good Discharge Details Attending Provider: Storm Lerma Primary Care Provider: Albert Peralta Home Meds and New Rx's Prescriptions: No Action Aranesp (in polysorbate) 200 mcg/mL solution 100 mcg SC Q4W PRN (Reason: anemia) docusate sodium 100 mg capsule 200 mg PO QHS PRN hydrocodone-acetaminophen 7.5-325 mg tablet 1 tab PO BID MDD 2 tab PRN (Reason: pain) Qty: 56 0RF melatonin 3 mg tablet 3 mg PO HS PRN vitamin B complex [B Complex-Vitamin B12] Tablet 1 tab PO DAILY polyethylene glycol 3350 [Miralax] 17 gram/dose powder 17 g PO DAILY PRN amantadine HCl 100 mg capsule 100 mg PO DAILY Qty: 90 3RF carbidopa-levodopa 25-100 mg tablet extended release 1 tab PO BID Qty: 180 3RF Rx Instructions: Take am and lunch time. lovastatin 40 mg tablet 40 mg PO DAILY Qty: 90 3RF amlodipine 5 mg tablet 5 mg PO DAILY Qty: 90 3RF paroxetine HCl 20 mg tablet 20 mg PO DAILY Qty: 90 3RF ICaps AREDS2 250 mg-200 unit -12.5 mg-1 mg Capsule 1 cap PO BID Discharge Instructions Stand Alone Forms: Post-op Topical Cataract, Gricelda Garcia (DSU) Discharge Orders Discharge Orders: Discharge Order (Routine); Ordered 01/11/22 Ordered By: Storm Lerma DS: Diagnosis Discharge Diagnosis (1) Nuclear sclerotic cataract of right eye: Status: Resolved (2) Posterior subcapsular age-related cataract, right eye: Status: Resolved
--- NOTE | 2022-01-11 08:07 | ROE_ITS ---
Date of service: 01/11/22 Time of Service: 08:07 Operative Note Operative Note DATE OF PROCEDURE: 01/11/22 PRE-OP DIAGNOSIS: Nuclear/posterior subcapsular cataract, right eye POST-OP DIAGNOSIS: same PROCEDURE: Cataract extraction using phacoemulsification with intraocular lens implant, right eye SURGEON: Storm Lerma ANESTHESIA TYPE: Local By Surgeon and MAC Refer to Anesthesia Record ESTIMATED BLOOD LOSS: 0 PATHOLOGY: none sent COMPLICATIONS: None Patient was transported to: same day Patient's condition: stable Implants: Flavio & Flavio/KATIE Tecnis [id number] Indications: Progressive visual loss due to cataract, right eye Procedure Description: CATARACT SURGERY OPERATIVE REPORT PREOPERATIVE DIAGNOSIS: 1. Nuclear/posterior subcapsular cataract, right eye POSTOPERATIVE DIAGNOSIS: Same OPERATION: 1. Cataract extraction using phacoemulsification with posterior chamber intraocular lens implant, right eye. IOL: IOL [employer] Wafer/Model: Flavio & Flavio / KATIE Tecnis [id number] IOL Power: + 26.0 diopters IOL Serial Number: [id number] Optic Diameter: 6.0mm Haptic/Overall Diameter: 13.0mm PHACO INFO: Tobi Avvourion Vision System with OZil and Active Fluidics Cumulative Dispersed Energy (CDE): 15.96 seconds SURGEON: Storm Lerma MD, MILAGROS ANESTHESIA: Monitored Anesthesia Care (MAC), with local sub-tenon's anesthetic infiltration COMPLICATIONS: None SPECIMENS: None INDICATIONS FOR PROCEDURE: Patient is a 71-year-old gentleman with history of diminished visual acuity in his right eye secondary to the development of nuclear and posterior subcapsular cataract. He is significantly symptomatic that he desires cataract surgery and attempt to improve and maximize his vision. The option of cataract surgery was offered to the patient and he wished to proceed. PROCEDURE: The correct surgical eye was identified and marked as the right eye and the pupil was dilated in the preoperative area using mydriatics and cycloplegics. The dilated pupil size was 7.0 mm. He elected to proceed without oral sedation. The patient was brought to the operating room where cardiopulmonary monitoring was instituted and surgical time-out was performed, confirming the correct operative eye and IOL power. Topical anesthesia was administered and ophthalmic povidone-iodine 5% was instilled into the conjunctival fornices. Lidocaine gel was applied to the cornea and the arden-ocular area was prepped with Betadine 10% solution and draped in the usual sterile fashion for intraocular surgery, including an aperture drape. A Tegaderm transparent film dressing was cut in half and used to cover the lashes and lid margins. Care was taken to sequester the lashes and lid margins under the Tegaderm dressing. A lid speculum was placed between the lids of the operative eye and the Tobi LuxOR Revalia operating microscope was maneuvered into position. Jesus scissors were then used to make a conjunctival buttonhole approximately 6mm posterior to the limbus in the inferonasal quadrant. Blunt dissection was carried out to expose bare sclera, and a blunt-tipped sub-tenon?s anesthesia cannula was introduced and passed posteriorly along the globe where non- preserved plain lidocaine was injected into posterior sub-Tenon?s space. A sideport knife was used to make a paracentesis port inferotemporally. Intraocular phenylephrine/lidocaine was injected into the anterior chamber. The anterior chamber was filled with viscoelastic. A 2.6mm keratome knife was used to construct a 2-plane near-clear corneal tunnel extending 2.0mm into clear cornea superiortemporally. A flap was raised on the anterior capsule and capsulorhexis forceps were used to complete a continuous curvilinear capsulorhexis of 5.0 mm. The anterior capsule was noted to be quite thin with some zonular laxity. Capsulorrhexis was slightly decentered temporally due to constant patient eye movement. Balanced salt solution was then used to perform cortical cleaving hydrodissection and nuclear hydrodelineation until the lens could be freely rotated within the capsular bag. The lens nucleus was then disassembled and removed within the capsular bag and iris plane using phacoemulsification. Residual cortical material was removed using the I/A handpiece. The posterior capsule was carefully polished to remove as much residual lens epithelial cells as safely possible. The capsular bag was then inflated and the anterior chamber deepened with viscoelastic. The lens implant described above was inserted into the capsular bag using the KATIE [place] Injector. A Kuglen hook was used to dial the IOL into position. Residual viscoelastic was then removed first from posterior to the IOL, then from the anterior chamber using the I/A handpiece. The lens implant was noted to center nicely within the capsular bag. The incisions were stromally hydrated, and the anterior chamber was reformed using BSS. Then 0.5cc of moxifloxacin 1.0mg/ml were injected into the capsular bag and anterior chamber. The incisions were checked with a Weck spear and found to be secure. Several drops of ophthalmic povidone-iodine 5% were then applied to the eye followed by two drops of Imprimis combination prednisolone/moxifloxacin/nepafenac solution. The drapes were removed and a clear plastic protective eye shield was placed over the eye. The patient was then returned to Same Day Surgery in stable condition.
--- NOTE | 2022-01-11 08:54 | W.ANESPOSTOP ---
Postoperative Evaluation Date, Time and Location Date Performed: 01/11/22 Time Performed: 08:10 Patient Location: Day Surgery Unit Vital Signs Most Recent Imported Vital Signs: Most Recent Vital Signs Temp Pulse Resp BP Pulse Ox 36.5 C 69 17 145/75 H 98 01/11/22 08:05 01/11/22 08:05 01/11/22 08:05 01/11/22 08:05 01/11/22 08:05 Pain Score Most Recent Pain Score: Most Recent Pain Score Pain Level 0 01/11/22 08:05 Assessment Mental Status: Awake (Alert & Oriented to Patient Baseline) Airway and Respiratory Function: Patent airway with normal (patient baseline) respiratory exam Cardiovascular Function: Hemodynamically Stable Hydration Status: Adequately Hydrated Nausea & Vomiting: No Nausea or Vomiting Pain: Pt. Denies Any Pain Peripheral Nerve Block: Patient did not receive a nerve block
== END 2022-01-11 08:25 | disposition home or self-care (01) ==
LOC: SUR 06:03
PROVIDERS: PCP Family Medicine; Visit Provider Ophthalmology
PROC: (CPT 66984; principal; 2022-01-11 07:30)
DX: H25.041 Posterior subcapsular polar age-related cataract, right eye (principal); N18.9 Chronic kidney disease, unspecified; D64.9 Anemia, unspecified
CPT/HCPCS: 66984; V2632

== ENCOUNTER 2022-01-21 03:55 | Outpatient (CLI) | payer MEDICARE, SELFPAY | END 2022-01-21 03:56 | disposition home or self-care (01) | LOC: LBO 03:56 | PROVIDERS: PCP Family Medicine; Visit Provider Internal Medicine Hematology & Oncology ==

== ENCOUNTER 2022-01-25 06:10 | Day surgery (SDC) | payer MEDICARE, SELFPAY ==
[2022-01-25] MEDS: Tropicam./Phenyleph. (1/2.5%) 5 ML BTL OS ×3 (06:41→06:54)
[2022-01-25 06:42] VITALS: BP 158/73; PULSE 65; RESP 16; TEMP 36.5; O2SAT 100
--- NOTE | 2022-01-25 07:04 | W.ANESPRE ---
General Info Date of Service Date Performed: 01/25/22 Height: 5 ft 8 in Weight: 75.2 kg Body Mass Index (BMI): 25.2 Surgical Procedure: Operation Date: 01/25/22 07:40 Proposed Procedure Side Surgeon p Cataract Extraction with IOL Implant Left Storm Lerma MD Meds Allergies and Home Medications Allergies Allergy/AdvReac Type Severity Reaction Status Date / Time No Known Allergies Allergy Verified 01/25/22 06:28 Home Medication Medication Instructions Recorded vit C 250 mg-vit E 200 unit-zinc 1 cap PO BID 06/05/19 ox 12.5 qg-egmehk-ydxjco-zeax capsule (ICaps AREDS2) melatonin 3 mg tablet 3 mg PO HS PRN 03/20/20 vitamin B complex (B 1 tab PO DAILY 05/22/20 Complex-Vitamin B12 tablet) darbepoetin elias in polysorbat 200 100 mcg subcut Q4W PRN anemia 06/26/20 mcg/mL in polysorbate injection (Aranesp) docusate sodium 100 mg capsule 200 mg PO QHS PRN 11/20/20 lovastatin 40 mg tablet 40 mg PO DAILY #90 tab-caps 04/06/21 amlodipine 5 mg tablet 5 mg PO DAILY #90 tabs 08/14/21 amantadine HCl 100 mg capsule 100 mg PO DAILY #90 caps 10/19/21 paroxetine HCl 20 mg tablet 20 mg PO DAILY #90 tabs 11/16/21 carbidopa ER 25 mg-levodopa 100 mg 1 tab PO BID #180 tabs 12/02/21 tablet,extended release polyethylene glycol 3350 17 17 g PO DAILY PRN 12/04/21 gram/dose oral powder (Miralax) hydrocodone 7.5 mg-acetaminophen 1 tab PO BID PRN pain #56 tabs 12/31/21 325 mg tablet psyllium husk 3.4 gram/5.4 gram 1 tsp PO DAILY 01/25/22 oral powder (Metamucil) Current Visit Medications: Current Medications Generic Name Dose Route Start Last Admin Trade Name Freq PRN Reason Stop Dose Admin Acetaminophen 1,000 mg 01/25/22 06:00 Acetaminophen 500 Mg Tab PO Q4H PRN PRN Miscellaneous Medication 0 ml 01/25/22 06:00 Prednisolone 1%, Moxifloxacin 0.5%, Nepafenac 0.1% 5ml Btl OS DIRECTED STEFANIE Miscellaneous Medication 0 ml 01/25/22 06:00 01/25/22 06:54 Tropicam./Phenyleph. (1/2.5%) 5 Ml Btl OS 1 drp DIRECTED STEFANIE Administration Tetracaine HCl 0 ml 01/25/22 06:00 Tetracaine 0.5% 4 Ml Btl OS DIRECTED STEFANIE PFSH Active Problems Active Problems: Problem Status Onset Code Chronic back pain 01/28/14 M54.9, G89.29 Depression 01/28/14 F32.9 Essential hypertension 08/06/13 I10 Family history of colon cancer 01/28/14 Z80.0 Hyperlipidemia 03/05/13 E78.5 Tubular adenoma of colon 05/05/16 D12.6 Orthostatic hypotension I95.1 Normocytic anemia D64.9 CKD (chronic kidney disease) N18.9 Constipation K59.00 BPH w urinary obs/LUTS N40.1, N13.8 Sciatica of left side M54.32 Pain in left hip M25.552 Dysplastic skin lesion L98.8 Nuclear sclerotic cataract of right eye H25.11 Posterior subcapsular age-related cataract, right eye H25.041 Medical History Medical History Hyperlipidemia Surgical History Surgical History (Updated 01/25/22 @ 06:28 by Kelsea Richards) colonoscopy (05/05/16) Hx of cataract surgery Tobacco Smoking/Tobacco Use Status: Current-Occasional Tobacco Type: pipe Passive smoking exposure: Yes Second hand exposure: No Alcohol Alcohol Intake: current Alcohol intake frequency: a few times a month Alcohol type: beer Substance Use Substance use: Never Vital Signs and Lab Results Vital Signs Most Recent Vital Signs in EMR: Most Recent Vital Signs Temp Pulse Resp BP Pulse Ox 36.5 C 65 16 158/73 H 100 01/25/22 06:42 01/25/22 06:42 01/25/22 06:42 01/25/22 06:42 01/25/22 06:42 Lab Results Blood Type / Crossmatch: No Data to Display Complete Blood Count: White Blood Count 5.15 10^3/uL (4.4-10.8) 01/07/22 12:11 Red Blood Count 3.61 10^6/uL (4.36-5.78) L 01/07/22 12:11 Hemoglobin 10.7 g/dL (13.5-17.5) L 01/07/22 12:11 Hematocrit 34.2 % (40.0-50.0) L 01/07/22 12:11 Platelet Count 204 10^3/uL (130-400) 01/07/22 12:11 Complete Metabolic Panel: No Data to Display Liver Function Panel: No Data to Display Coagulation Panel: No Data to Display Cardiac Panel: No Data to Display Arterial Blood Gas: No Data to Display Venous Blood Gas: No Data to Display Pancreas Panel: No Data to Display Thyroid Panel: No Data to Display Infectious Disease: No Data to Display Blood Cultures: No Data to Display Toxicology Panel: No Data to Display Anesthesia Assessment and Plan Anesthesia History Personal History: No History of Anesthesia Complications Family History: No Family History of Anesthesia Complications Exercise Tolerance Exercise Tolerance: Metabolic Equivalents<4 Pertinent Negatives Pertinent Negatives: No Major Cardiovascular Symptoms or Complaints and No Major Pulmonary Symptoms or Complaints Cardiac & Pulmonary Exam Cardiac Exam: Normal S1/S2 Heart Sounds Pulmonary Exam: Clear Bilateral Breath Sounds Implantable Cardiac Device Does patient have a Pacemaker or an ICD?: No Airway Exam Known Difficult Airway: No Mallampati Class: 1 Mouth Opening: Normal (> 3cm) Thyromental Distance: Greater than 3 cm Neck Range of Motion: Full ROM Neck Circumference: Normal Teeth Condition: Normal Dentition ASA Classification ASA Score: ASA 3 Emergency Case?: No NPO Status NPO Status: NPO Clears >2 hours, Solids >8 hours Anesthesia Plan Resuscitation Status: Full Code Anesthesia Technique: MAC Anesthesia Airway Planned: Natural Airway Monitors Used: Standard Monitors
[2022-01-25 07:15] VITALS: BMI 25.2
[2022-01-25] MEDS: Tetracaine 0.5% 4 ML BTL OS (07:25)
[2022-01-25] MEDS: Lidocaine 2% Jelly 6 ML SYR (07:25)
[2022-01-25] MEDS: Povidone-Iodine Ophth 30 ML BTL (07:25)
[2022-01-25] MEDS: Duovisc Viscoelastic System EACH 1 EACH (07:31)
[2022-01-25] MEDS: Balanced Salt Soln.-PLUS 500 ML BAG (07:31)
--- NOTE | 2022-01-25 08:09 | W.PM.DSUDISC ---
Discharge Plan Disposition Patient Disposition: HOME Condition: Good Discharge Details Attending Provider: Storm Lerma Primary Care Provider: Albert Peralta Home Meds and New Rx's Prescriptions: No Action Aranesp (in polysorbate) 200 mcg/mL solution 100 mcg SC Q4W PRN (Reason: anemia) docusate sodium 100 mg capsule 200 mg PO QHS PRN hydrocodone-acetaminophen 7.5-325 mg tablet 1 tab PO BID MDD 2 tab PRN (Reason: pain) Qty: 56 0RF melatonin 3 mg tablet 3 mg PO HS PRN vitamin B complex [B Complex-Vitamin B12] Tablet 1 tab PO DAILY polyethylene glycol 3350 [Miralax] 17 gram/dose powder 17 g PO DAILY PRN amantadine HCl 100 mg capsule 100 mg PO DAILY Qty: 90 3RF carbidopa-levodopa 25-100 mg tablet extended release 1 tab PO BID Qty: 180 3RF Rx Instructions: Take am and lunch time. lovastatin 40 mg tablet 40 mg PO DAILY Qty: 90 3RF amlodipine 5 mg tablet 5 mg PO DAILY Qty: 90 3RF paroxetine HCl 20 mg tablet 20 mg PO DAILY Qty: 90 3RF Metamucil 3.4 gram/5.4 gram Powder 1 tsp PO DAILY Rx Instructions: mix into at least 4 oz water or juice before administering ICaps AREDS2 250 mg-200 unit -12.5 mg-1 mg Capsule 1 cap PO BID Discharge Instructions Stand Alone Forms: Post-op Topical Cataract, Press Ganey (DSU) Discharge Orders Discharge Orders: Discharge Order (Routine); Ordered 01/25/22 Ordered By: Storm Lerma DS: Diagnosis Discharge Diagnosis (1) Nuclear sclerotic cataract of left eye: Status: Resolved (2) Posterior subcapsular age-related cataract of left eye: Status: Resolved
--- NOTE | 2022-01-25 08:10 | W.PM.OP ---
Date of service: 01/25/22 Time of Service: 08:10 Operative Note Operative Note DATE OF PROCEDURE: 01/25/22 PRE-OP DIAGNOSIS: Nuclear/posterior subcapsular cataract, left eye POST-OP DIAGNOSIS: same PROCEDURE: Cataract extraction using phacoemulsification with intraocular lens implant, left eye SURGEON: Storm Lerma ANESTHESIA TYPE: Local By Surgeon and MAC Refer to Anesthesia Record PATHOLOGY: none sent COMPLICATIONS: None Patient was transported to: same day Patient's condition: stable Implants: Flavio and Flavio / [employer] Tecnis [id number] Indications: Progressive decreased vision due to cataract, left eye Procedure Description: CATARACT SURGERY OPERATIVE REPORT PREOPERATIVE DIAGNOSIS: 1. Nuclear/posterior subcapsular cataract, left eye POSTOPERATIVE DIAGNOSIS: Same OPERATION: 1. Cataract extraction using phacoemulsification with posterior chamber intraocular lens implant, left eye. IOL: IOL Zinc [employer]asting/Model: Flavio & Flavio / KATIE Tecnis [id number] IOL Power: + 25.0 diopters IOL Serial Number: [id number] Optic Diameter: 6.0 mm Haptic/Overall Diameter: 13.0 mm PHACO INFO: Tobi Loc[employer]ion Vision System with OZil and Active Fluidics Cumulative Dispersed Energy (CDE): 16.85 seconds SURGEON: Storm Lerma MD, MILAGROS ANESTHESIA: Monitored A [facility] (MAC), with local sub-tenon's anesthetic infiltration COMPLICATIONS: None SPECIMENS: None INDICATIONS FOR PROCEDURE: The patient is a 71-year-old male with history of diminished visual acuity in his left eye secondary to development of nuclear and posterior subcapsular cataract. He has a history of ARMD as well. He has already undergone cataract surgery in the right eye and is doing well postoperatively, although postoperative visual acuity is limited by the presence of pre-existing maculopathy. He now presents for cataract surgery in the left eye. PROCEDURE: The correct surgical eye was identified and marked as the left eye and the pupil was dilated in the preoperative area using mydriatics and cycloplegics. The dilated pupil size was 7.0 mm. 2mg). The patient elected to proceed without oral sedation. The patient was brought to the operating room where cardiopulmonary monitoring was instituted and surgical time-out was performed, confirming the correct operative eye and IOL power. Topical anesthesia was administered and ophthalmic povidone-iodine 5% was instilled into the conjunctival fornices. Lidocaine gel was applied to the cornea and the arden-ocular area was prepped with Betadine 10% solution and draped in the usual sterile fashion for intraocular surgery, including an aperture drape. A Tegaderm transparent film dressing was cut in half and used to cover the lashes and lid margins. Care was taken to sequester the lashes and lid margins under the Tegaderm dressing. A lid speculum was placed between the lids of the operative eye and the Tobi LuxOR Revalia operating microscope was maneuvered into position. Jesus scissors were then used to make a conjunctival buttonhole approximately 6mm posterior to the limbus in the inferonasal quadrant. Blunt dissection was carried out to expose bare sclera, and a blunt-tipped sub-tenon?s anesthesia cannula was introduced and passed posteriorly along the globe where non-preserved plain lidocaine was injected into posterior sub-Tenon?s space. A sideport knife was used to make a paracentesis port superiorly/superiortemporally. Intraocular phenylephrine/lidocaine was injected int the anterior chamber.. The anterior chamber was filled with viscoelastic. A keratome knife was used to construct a 2-plane near-clear corneal tunnel extending 2.0mm into clear cornea temporally. A flap was raised on the anterior capsule and capsulorhexis forceps were used to complete a continuous curvilinear capsulorhexis of 4.8 mm. Capsulorhexis was challenging, due to thin capsule, loose zonules, and constant patient eye movement. Balanced salt solution was then used to perform cortical cleaving hydrodissection and nuclear hydrodelineation until the lens could be freely rotated within the capsular bag. The lens nucleus was then disassembled and removed within the capsular bag and iris plane using phacoemulsification. Residual cortical material was removed using the 45-degree angled silicone I/A tip with 0.3mm port. The posterior capsule was carefully polished to remove as much residual lens epithelial cells as safely possible. The capsular bag was then inflated and the anterior chamber deepened with viscoelastic. The lens implant described above was inserted into the capsular bag using the KATIE [place] Injector. A Kuglen hook was used to dial the IOL into position. Residual viscoelastic was then removed first from posterior to the IOL, then from the anterior chamber using the I/A handpiece. The lens implant was noted to center nicely within the capsular bag. The incisions were stromally hydrated, and the anterior chamber was reformed using BSS. Then 0.5cc of moxifloxacin 1.0mg/ml were injected into the capsular bag and anterior chamber. The incisions were checked with a Weck spear and found to be secure. Several drops of ophthalmic povidone-iodine 5% were then applied to the eye followed by two drops of Imprimis combination prednisolone/moxifloxacin/nepafenac solution. The drapes were removed and a clear plastic protective eye shield was placed over the eye. The patient was then returned to Same Day Surgery in stable condition.
[2022-01-25 08:13] VITALS: BP 127/78; PULSE 66; RESP 16; TEMP 36.3; O2SAT 99
--- NOTE | 2022-01-25 08:21 | W.ANESPOSTOP ---
Postoperative Evaluation Date, Time and Location Date Performed: 01/25/22 Time Performed: 08:23 Patient Location: Day Surgery Unit Vital Signs Most Recent Imported Vital Signs: Most Recent Vital Signs Temp Pulse Resp BP Pulse Ox 36.3 C L 66 16 127/78 99 01/25/22 08:13 01/25/22 08:13 01/25/22 08:13 01/25/22 08:13 01/25/22 08:13 Pain Score Most Recent Pain Score: Most Recent Pain Score Pain Level 0 01/25/22 08:13 Assessment Mental Status: Awake (Alert & Oriented to Patient Baseline) Airway and Respiratory Function: Patent airway with normal (patient baseline) respiratory exam Cardiovascular Function: Hemodynamically Stable Hydration Status: Adequately Hydrated Nausea & Vomiting: No Nausea or Vomiting Pain: Pt. Denies Any Pain Peripheral Nerve Block: Patient did not receive a nerve block
== END 2022-01-25 08:25 | disposition home or self-care (01) ==
PROVIDERS: PCP Family Medicine; Visit Provider Ophthalmology
PROC: (CPT 66984; principal; 2022-01-25 07:30)
DX: H25.042 Posterior subcapsular polar age-related cataract, left eye (principal); I10 Essential (primary) hypertension; E78.5 Hyperlipidemia, unspecified; G20 Parkinson's disease
CPT/HCPCS: 66984; V2632

== ENCOUNTER 2022-02-11 03:06 | Outpatient (CLI) | payer MEDICARE, SELFPAY ==
[2022-02-11 14:22] LABS: Abs Immature Grans 0.01 10^3/uL (0.0-0.06); Absolute Basophil Count 0.07 10^3/uL (0.0-0.2); Absolute Eosinophil Count 0.22 10^3/uL (0.0-0.7); Absolute Lymphocyte Count 1.15 10^3/uL (1.2-3.4); Absolute Monocyte Count 0.36 10^3/uL (0.1-0.8); Absolute Neutrophil Count 3.57 10^3/uL (1.2-6.7); Basophils % 1.3; Eosinophils % 4.1; HCT 32.6 % (40.0-50.0); HGB 10.6 g/dL (13.5-17.5); Immature Grans % 0.2; Lymphocytes % 21.4; MCH 30.2 pg (27.0-33.0); MCHC 32.5 % (32.0-36.0); MCV 93 fL (80-95); MPV 9.2 fL (8.0-11.0); Monocytes % 6.7; Neutrophils % 66.3; Platelet Count 198 10^3/uL (130-400); RBC 3.51 10^6/uL (4.36-5.78); RDW 12.7 % (11.8-14.1); RDW-SD 43.6 fL; WBC 5.38 10^3/uL (4.4-10.8)
== END 2022-02-11 03:07 | disposition home or self-care (01) ==
LOC: LBO 03:06
PROVIDERS: PCP Family Medicine; Visit Provider Internal Medicine Hematology & Oncology
DX: N18.31 Chronic kidney disease, stage 3a (principal); D63.1 Anemia in chronic kidney disease
CPT/HCPCS: 36415; 85025

== ENCOUNTER → 2022-03-03 10:14 | Outpatient (BNVA) | payer MEDICARE, SELFPAY | PROVIDERS: PCP Family Medicine; Referring Provider Family Medicine; Visit Provider Psychiatry & Neurology Neurology | DX: G20 Parkinson's disease (principal); I95.1 Orthostatic hypotension; K59.00 Constipation, unspecified; I12.9 Hypertensive chronic kidney disease with stage 1 through stage 4 chronic kidney disease, or unspecified chronic kidney disease; N18.9 Chronic kidney disease, unspecified | CPT/HCPCS: 99214 ==

== ENCOUNTER 2022-03-11 03:03 | Outpatient (CLI) | payer MEDICARE, SELFPAY ==
[2022-03-11 14:39] LABS: Abs Immature Grans 0.02 10^3/uL (0.0-0.06); Absolute Basophil Count 0.06 10^3/uL (0.0-0.2); Absolute Eosinophil Count 0.31 10^3/uL (0.0-0.7); Absolute Lymphocyte Count 1.06 10^3/uL (1.2-3.4); Absolute Monocyte Count 0.47 10^3/uL (0.1-0.8); Absolute Neutrophil Count 3.64 10^3/uL (1.2-6.7); Basophils % 1.1; Eosinophils % 5.6; HCT 32.1 % (40.0-50.0); HGB 10.6 g/dL (13.5-17.5); Immature Grans % 0.4; Lymphocytes % 19.1; MCH 31.1 pg (27.0-33.0); MCV 94 fL (80-95); Monocytes % 8.5; Neutrophils % 65.3; Platelet Count 206 10^3/uL (130-400); RBC 3.41 10^6/uL (4.36-5.78); RDW 12.9 % (11.8-14.1); RDW-SD 44.7 fL; WBC 5.56 10^3/uL (4.4-10.8)
== END 2022-03-11 03:04 | disposition home or self-care (01) ==
LOC: LBO 03:03
PROVIDERS: PCP Family Medicine; Visit Provider Internal Medicine Hematology & Oncology
DX: N18.31 Chronic kidney disease, stage 3a (principal); D63.1 Anemia in chronic kidney disease
CPT/HCPCS: 36415; 85025

== ENCOUNTER 2022-04-08 14:51 | Outpatient (CLI) | payer MEDICARE, SELFPAY ==
[2022-04-08 14:47] LABS: Abs Immature Grans 0.01 10^3/uL (0.0-0.06); Absolute Basophil Count 0.05 10^3/uL (0.0-0.2); Absolute Lymphocyte Count 0.99 10^3/uL (1.2-3.4); Absolute Monocyte Count 0.38 10^3/uL (0.1-0.8); Absolute Neutrophil Count 2.86 10^3/uL (1.2-6.7); Basophils % 1.1; Eosinophils % 6.5; HCT 31.8 % (40.0-50.0); HGB 10.3 g/dL (13.5-17.5); Immature Grans % 0.2; Lymphocytes % 21.6; MCH 31.1 pg (27.0-33.0); MCHC 32.4 % (32.0-36.0); MCV 96 fL (80-95); MPV 8.8 fL (8.0-11.0); Monocytes % 8.3; Neutrophils % 62.3; Platelet Count 217 10^3/uL (130-400); RBC 3.31 10^6/uL (4.36-5.78); RDW 13.2 % (11.8-14.1); RDW-SD 47.2 fL; WBC 4.59 10^3/uL (4.4-10.8)
== END 2022-04-08 14:52 | disposition home or self-care (01) ==
LOC: LBO 14:53
PROVIDERS: PCP Family Medicine; Visit Provider Internal Medicine Hematology & Oncology
DX: N18.31 Chronic kidney disease, stage 3a (principal); D63.1 Anemia in chronic kidney disease
CPT/HCPCS: 36415; 85025

== ENCOUNTER → 2022-04-14 10:48 | Outpatient (BNVA) | payer MEDICARE, SELFPAY | PROVIDERS: PCP Family Medicine; Referring Provider Family Medicine; Visit Provider Psychiatry & Neurology Neurology | DX: G20 Parkinson's disease (principal); I95.1 Orthostatic hypotension; K59.00 Constipation, unspecified; N18.9 Chronic kidney disease, unspecified; I12.9 Hypertensive chronic kidney disease with stage 1 through stage 4 chronic kidney disease, or unspecified chronic kidney disease | CPT/HCPCS: 99214 ==

== ENCOUNTER 2022-05-06 03:57 | Outpatient (CLI) | payer MEDICARE, SELFPAY ==
[2022-05-06 14:37] LABS: Abs Immature Grans 0.01 10^3/uL (0.0-0.06); Absolute Basophil Count 0.05 10^3/uL (0.0-0.2); Absolute Eosinophil Count 0.27 10^3/uL (0.0-0.7); Absolute Lymphocyte Count 0.98 10^3/uL (1.2-3.4); Absolute Monocyte Count 0.38 10^3/uL (0.1-0.8); Absolute Neutrophil Count 3.09 10^3/uL (1.2-6.7); Eosinophils % 5.6; HCT 32.5 % (40.0-50.0); HGB 10.4 g/dL (13.5-17.5); Immature Grans % 0.2; Lymphocytes % 20.5; MCH 30.5 pg (27.0-33.0); MCV 95 fL (80-95); MPV 8.9 fL (8.0-11.0); Monocytes % 7.9; Neutrophils % 64.8; Platelet Count 228 10^3/uL (130-400); RBC 3.41 10^6/uL (4.36-5.78); RDW-SD 45.5 fL; WBC 4.78 10^3/uL (4.4-10.8)
== END 2022-05-06 03:58 | disposition home or self-care (01) ==
LOC: LBO 03:57
PROVIDERS: PCP Family Medicine; Visit Provider Internal Medicine Hematology & Oncology
DX: N18.31 Chronic kidney disease, stage 3a (principal); D63.1 Anemia in chronic kidney disease
CPT/HCPCS: 36415; 85025

== ENCOUNTER 2022-06-03 03:24 | Outpatient (CLI) | payer MEDICARE, SELFPAY ==
[2022-06-03 14:54] LABS: Abs Immature Grans 0.01 10^3/uL (0.0-0.06); Absolute Basophil Count 0.05 10^3/uL (0.0-0.2); Absolute Eosinophil Count 0.24 10^3/uL (0.0-0.7); Absolute Lymphocyte Count 1.19 10^3/uL (1.2-3.4); Basophils % 0.9; Eosinophils % 4.5; HCT 33.9 % (40.0-50.0); HGB 10.9 g/dL (13.5-17.5); Immature Grans % 0.2; Lymphocytes % 22.1; MCHC 32.2 % (32.0-36.0); MCV 96 fL (80-95); MPV 9.2 fL (8.0-11.0); Monocytes % 7.4; Neutrophils % 64.9; Platelet Count 221 10^3/uL (130-400); RBC 3.52 10^6/uL (4.36-5.78); RDW 12.7 % (11.8-14.1); RDW-SD 44.9 fL; WBC 5.39 10^3/uL (4.4-10.8)
[2022-06-03 15:24] LABS: Ferritin 151 ng/mL (26-388)
[2022-06-03 17:43] LABS: Hemoglobin A1C 5.3 % (<5.7)
== END 2022-06-03 03:25 | disposition home or self-care (01) ==
LOC: LBO 03:24
PROVIDERS: PCP Family Medicine; Visit Provider Internal Medicine Hematology & Oncology
DX: R73.9 Hyperglycemia, unspecified (principal); D63.1 Anemia in chronic kidney disease; N18.31 Chronic kidney disease, stage 3a
CPT/HCPCS: 36415; 82728; 83036; 85025

== ENCOUNTER 2022-07-01 02:52 | Outpatient (CLI) | payer MEDICARE, SELFPAY ==
[2022-07-01 14:36] LABS: Abs Immature Grans 0.03 10^3/uL (0.0-0.06); Absolute Basophil Count 0.04 10^3/uL (0.0-0.2); Absolute Eosinophil Count 0.13 10^3/uL (0.0-0.7); Absolute Lymphocyte Count 1.14 10^3/uL (1.2-3.4); Absolute Monocyte Count 0.63 10^3/uL (0.1-0.8); Absolute Neutrophil Count 5.97 10^3/uL (1.2-6.7); Basophils % 0.5; Eosinophils % 1.6; HCT 32.6 % (40.0-50.0); HGB 10.3 g/dL (13.5-17.5); Immature Grans % 0.4; Lymphocytes % 14.4; MCH 30.3 pg (27.0-33.0); MCHC 31.6 % (32.0-36.0); MCV 96 fL (80-95); MPV 9.1 fL (8.0-11.0); Monocytes % 7.9; Neutrophils % 75.2; Platelet Count 232 10^3/uL (130-400); RDW 12.6 % (11.8-14.1); RDW-SD 44.6 fL; WBC 7.94 10^3/uL (4.4-10.8)
[2022-07-01 15:15] LABS: Ferritin 141 ng/mL (26-388)
== END 2022-07-01 02:53 | disposition home or self-care (01) ==
LOC: LBO 02:52
PROVIDERS: PCP Family Medicine; Visit Provider Internal Medicine Hematology & Oncology
DX: D63.1 Anemia in chronic kidney disease (principal); N18.31 Chronic kidney disease, stage 3a
CPT/HCPCS: 36415; 82728; 85025

== ENCOUNTER 2022-07-29 04:00 | Outpatient (CLI) | payer MEDICARE, SELFPAY ==
[2022-07-29 15:32] LABS: Abs Immature Grans 0.02 10^3/uL (0.0-0.06); Absolute Basophil Count 0.08 10^3/uL (0.0-0.2); Absolute Eosinophil Count 0.34 10^3/uL (0.0-0.7); Absolute Lymphocyte Count 1.17 10^3/uL (1.2-3.4); Absolute Monocyte Count 0.35 10^3/uL (0.1-0.8); Basophils % 1.3; Eosinophils % 5.6; HCT 34.3 % (40.0-50.0); HGB 10.9 g/dL (13.5-17.5); Immature Grans % 0.3; Lymphocytes % 19.3; MCHC 31.8 % (32.0-36.0); MCV 95 fL (80-95); MPV 9.2 fL (8.0-11.0); Monocytes % 5.8; Neutrophils % 67.7; Platelet Count 306 10^3/uL (130-400); RBC 3.63 10^6/uL (4.36-5.78); RDW 12.7 % (11.8-14.1); WBC 6.06 10^3/uL (4.4-10.8)
[2022-07-29 16:40] LABS: Ferritin 188 ng/mL (26-388)
== END 2022-07-29 04:01 | disposition home or self-care (01) ==
LOC: LBO 04:01
PROVIDERS: PCP Family Medicine; Visit Provider Internal Medicine Hematology & Oncology
DX: N18.31 Chronic kidney disease, stage 3a (principal); D63.1 Anemia in chronic kidney disease
CPT/HCPCS: 36415; 82728; 85025

== ENCOUNTER 2022-08-26 01:43 | Outpatient (CLI) | payer MEDICARE, SELFPAY ==
[2022-08-26 08:54] LABS: Abs Immature Grans 0.01 10^3/uL (0.0-0.06); Absolute Basophil Count 0.07 10^3/uL (0.0-0.2); Absolute Eosinophil Count 0.32 10^3/uL (0.0-0.7); Absolute Lymphocyte Count 0.86 10^3/uL (1.2-3.4); Absolute Monocyte Count 0.34 10^3/uL (0.1-0.8); Absolute Neutrophil Count 3.11 10^3/uL (1.2-6.7); Basophils % 1.5; Eosinophils % 6.8; HCT 35.9 % (40.0-50.0); HGB 11.2 g/dL (13.5-17.5); Immature Grans % 0.2; Lymphocytes % 18.3; MCH 29.7 pg (27.0-33.0); MCHC 31.2 % (32.0-36.0); MCV 95 fL (80-95); MPV 9.1 fL (8.0-11.0); Monocytes % 7.2; Platelet Count 220 10^3/uL (130-400); RBC 3.77 10^6/uL (4.36-5.78); RDW 12.9 % (11.8-14.1); RDW-SD 45.5 fL; WBC 4.71 10^3/uL (4.4-10.8)
[2022-08-26 09:28] LABS: ALT 16 U/L (16-63); AST 18 U/L (15-37); Albumin 3.8 g/dL (3.4-5.0); Alkaline Phosphatase 60 U/L (46-116); Anion Gap 7.6 mmol/L (3-11); BUN 38 mg/dL (7-18); Bilirubin, Total 0.3 mg/dL (0.2-1.0); CO2 29.4 mmol/L (21.0-32.0); CREATININE 1.2 mg/dL (0.70-1.30); Calcium 9.8 mg/dL (8.5-10.1); Chloride 105 mmol/L (98-107); Estimated GFR 63.46 (mL/min/1.73m2); Ferritin 146 ng/mL (26-388); Glucose 99 mg/dL (74-106); Potassium 4.3 mmol/L (3.5-5.1); Sodium 142 mmol/L (136-145)
== END 2022-08-26 01:44 | disposition home or self-care (01) ==
LOC: LBO 01:43
PROVIDERS: PCP Family Medicine; Visit Provider Internal Medicine Hematology & Oncology
DX: D63.1 Anemia in chronic kidney disease (principal); N18.31 Chronic kidney disease, stage 3a
CPT/HCPCS: 36415; 80053; 82728; 85025

== ENCOUNTER 2022-09-23 03:08 | Outpatient (CLI) | payer MEDICARE, SELFPAY ==
[2022-09-23 13:13] LABS: Abs Immature Grans 0.01 10^3/uL (0.0-0.06); Absolute Basophil Count 0.06 10^3/uL (0.0-0.2); Absolute Eosinophil Count 0.19 10^3/uL (0.0-0.7); Absolute Lymphocyte Count 0.97 10^3/uL (1.2-3.4); Absolute Monocyte Count 0.35 10^3/uL (0.1-0.8); Absolute Neutrophil Count 3.81 10^3/uL (1.2-6.7); Basophils % 1.1; Eosinophils % 3.5; HGB 10.8 g/dL (13.5-17.5); Immature Grans % 0.2; MCH 30.3 pg (27.0-33.0); MCHC 31.8 % (32.0-36.0); MCV 95 fL (80-95); Monocytes % 6.5; Neutrophils % 70.7; Platelet Count 211 10^3/uL (130-400); RBC 3.57 10^6/uL (4.36-5.78); RDW-SD 44.9 fL; WBC 5.39 10^3/uL (4.4-10.8)
[2022-09-23 13:43] LABS: ALT 9 U/L (16-63); AST 16 U/L (15-37); Albumin 3.8 g/dL (3.4-5.0); Alkaline Phosphatase 59 U/L (46-116); Anion Gap 8.8 mmol/L (3-11); BUN 40 mg/dL (7-18); Bilirubin, Total 0.3 mg/dL (0.2-1.0); CO2 29.2 mmol/L (21.0-32.0); CREATININE 1.5 mg/dL (0.70-1.30); Calcium 9.4 mg/dL (8.5-10.1); Chloride 105 mmol/L (98-107); Estimated GFR 48.55 (mL/min/1.73m2); Ferritin 138 ng/mL (26-388); Glucose 112 mg/dL (74-106); Potassium 4.3 mmol/L (3.5-5.1); Sodium 143 mmol/L (136-145); Total Protein 7.1 g/dL (6.4-8.2)
== END 2022-09-23 03:09 | disposition home or self-care (01) ==
LOC: LBO 03:09
PROVIDERS: PCP Family Medicine; Visit Provider Internal Medicine Hematology & Oncology
DX: N18.31 Chronic kidney disease, stage 3a (principal); D63.1 Anemia in chronic kidney disease
CPT/HCPCS: 36415; 80053; 82728; 85025

== ENCOUNTER → 2022-10-13 10:58 | Outpatient (BNVA) | payer MEDICARE, SELFPAY | PROVIDERS: PCP Family Medicine; Visit Provider Psychiatry & Neurology Neurology | DX: G20 Parkinson's disease (principal); I95.1 Orthostatic hypotension; K59.00 Constipation, unspecified; N18.9 Chronic kidney disease, unspecified | CPT/HCPCS: 99214 ==

== ENCOUNTER 2022-10-21 03:12 | Outpatient (CLI) | payer MEDICARE, SELFPAY ==
[2022-10-21 13:04] LABS: Abs Immature Grans 0.02 10^3/uL (0.0-0.06); Absolute Basophil Count 0.06 10^3/uL (0.0-0.2); Absolute Eosinophil Count 0.32 10^3/uL (0.0-0.7); Absolute Lymphocyte Count 1.17 10^3/uL (1.2-3.4); Absolute Monocyte Count 0.37 10^3/uL (0.1-0.8); Absolute Neutrophil Count 3.36 10^3/uL (1.2-6.7); Basophils % 1.1; HCT 34.6 % (40.0-50.0); HGB 11.2 g/dL (13.5-17.5); Immature Grans % 0.4; Lymphocytes % 22.1; MCH 30.4 pg (27.0-33.0); MCHC 32.4 % (32.0-36.0); MCV 94 fL (80-95); MPV 9.2 fL (8.0-11.0); Neutrophils % 63.4; Platelet Count 218 10^3/uL (130-400); RBC 3.69 10^6/uL (4.36-5.78); RDW-SD 44.5 fL
[2022-10-21 13:39] LABS: ALT 8 U/L (16-63); AST 16 U/L (15-37); Albumin 3.8 g/dL (3.4-5.0); Alkaline Phosphatase 56 U/L (46-116); Anion Gap 9.2 mmol/L (3-11); BUN 47 mg/dL (7-18); Bilirubin, Total 0.2 mg/dL (0.2-1.0); CO2 28.8 mmol/L (21.0-32.0); CREATININE 1.6 mg/dL (0.70-1.30); Calcium 9.1 mg/dL (8.5-10.1); Chloride 105 mmol/L (98-107); Estimated GFR 44.93 (mL/min/1.73m2); Ferritin 142 ng/mL (26-388); Glucose 133 mg/dL (74-106); Potassium 4.5 mmol/L (3.5-5.1); Sodium 143 mmol/L (136-145)
== END 2022-10-21 03:13 | disposition home or self-care (01) ==
LOC: LBO 03:12
PROVIDERS: PCP Family Medicine; Visit Provider Internal Medicine Hematology & Oncology
DX: N18.31 Chronic kidney disease, stage 3a (principal); D63.1 Anemia in chronic kidney disease
CPT/HCPCS: 36415; 80053; 82728; 85025

== ENCOUNTER 2022-11-18 01:40 | Outpatient (CLI) | payer MEDICARE, SELFPAY ==
[2022-11-18 08:00] LABS: Abs Immature Grans 0.01 10^3/uL (0.0-0.06); Absolute Basophil Count 0.05 10^3/uL (0.0-0.2); Absolute Eosinophil Count 0.31 10^3/uL (0.0-0.7); Absolute Lymphocyte Count 0.97 10^3/uL (1.2-3.4); Absolute Monocyte Count 0.37 10^3/uL (0.1-0.8); Absolute Neutrophil Count 3.09 10^3/uL (1.2-6.7); Eosinophils % 6.5; HCT 38.2 % (40.0-50.0); HGB 12.3 g/dL (13.5-17.5); Immature Grans % 0.2; Lymphocytes % 20.2; MCH 30.3 pg (27.0-33.0); MCHC 32.2 % (32.0-36.0); MCV 94 fL (80-95); MPV 8.8 fL (8.0-11.0); Monocytes % 7.7; Neutrophils % 64.4; Platelet Count 213 10^3/uL (130-400); RBC 4.06 10^6/uL (4.36-5.78); RDW 12.9 % (11.8-14.1); RDW-SD 44.8 fL
[2022-11-18 08:26] LABS: ALT 23 U/L (16-63); AST 21 U/L (15-37); Alkaline Phosphatase 53 U/L (46-116); Anion Gap 7.8 mmol/L (3-11); BUN 33 mg/dL (7-18); Bilirubin, Total 0.3 mg/dL (0.2-1.0); CO2 29.2 mmol/L (21.0-32.0); CREATININE 1.4 mg/dL (0.70-1.30); Calcium 9.4 mg/dL (8.5-10.1); Chloride 104 mmol/L (98-107); Estimated GFR 52.74 (mL/min/1.73m2); Ferritin 169 ng/mL (26-388); Glucose 108 mg/dL (74-106); Potassium 4.5 mmol/L (3.5-5.1); Sodium 141 mmol/L (136-145); Total Protein 7.6 g/dL (6.4-8.2)
== END 2022-11-18 01:41 | disposition home or self-care (01) ==
PROVIDERS: PCP Family Medicine; Visit Provider Nurse Practitioner Family
DX: N18.31 Chronic kidney disease, stage 3a (principal); D63.1 Anemia in chronic kidney disease
CPT/HCPCS: 36415; 80053; 82728; 85025

== ENCOUNTER 2022-12-16 05:02 | Outpatient (CLI) | payer MEDICARE, SELFPAY ==
[2022-12-16 07:14] LABS: Absolute Basophil Count 0.04 10^3/uL (0.0-0.2); Absolute Eosinophil Count 0.44 10^3/uL (0.0-0.7); Absolute Lymphocyte Count 1.01 10^3/uL (1.2-3.4); Absolute Monocyte Count 0.34 10^3/uL (0.1-0.8); Absolute Neutrophil Count 2.53 10^3/uL (1.2-6.7); Basophils % 0.9; Eosinophils % 10.1; HCT 33.6 % (40.0-50.0); HGB 10.8 g/dL (13.5-17.5); Lymphocytes % 23.2; MCH 30.3 pg (27.0-33.0); MCHC 32.1 % (32.0-36.0); MCV 94 fL (80-95); Monocytes % 7.8; Platelet Count 216 10^3/uL (130-400); RBC 3.57 10^6/uL (4.36-5.78); RDW-SD 44.8 fL; WBC 4.36 10^3/uL (4.4-10.8)
[2022-12-16 07:49] LABS: ALT 10 U/L (16-63); AST 14 U/L (15-37); Albumin 3.8 g/dL (3.4-5.0); Alkaline Phosphatase 50 U/L (46-116); BUN 43 mg/dL (7-18); Bilirubin, Total 0.3 mg/dL (0.2-1.0); CREATININE 1.5 mg/dL (0.70-1.30); Calcium 9.2 mg/dL (8.5-10.1); Chloride 101 mmol/L (98-107); Estimated GFR 48.55 (mL/min/1.73m2); Ferritin 166 ng/mL (26-388); Glucose 108 mg/dL (74-106); Potassium 4.1 mmol/L (3.5-5.1); Sodium 135 mmol/L (136-145); Total Protein 7.2 g/dL (6.4-8.2)
== END 2022-12-16 05:03 | disposition home or self-care (01) ==
PROVIDERS: PCP Family Medicine; Visit Provider Nurse Practitioner Family
DX: N18.31 Chronic kidney disease, stage 3a (principal)
CPT/HCPCS: 36415; 80053; 82728; 85025

== ENCOUNTER 2023-01-20 03:16 | Outpatient (CLI) | payer MEDICARE, SELFPAY ==
[2023-01-20 07:53] LABS: Abs Immature Grans 0.02 10^3/uL (0.0-0.06); Absolute Basophil Count 0.05 10^3/uL (0.0-0.2); Absolute Eosinophil Count 0.42 10^3/uL (0.0-0.7); Absolute Lymphocyte Count 0.86 10^3/uL (1.2-3.4); Absolute Monocyte Count 0.39 10^3/uL (0.1-0.8); Absolute Neutrophil Count 2.95 10^3/uL (1.2-6.7); Basophils % 1.1; HCT 34.1 % (40.0-50.0); HGB 10.9 g/dL (13.5-17.5); Immature Grans % 0.4; Lymphocytes % 18.3; MCH 30.2 pg (27.0-33.0); MCV 95 fL (80-95); MPV 8.9 fL (8.0-11.0); Monocytes % 8.3; Neutrophils % 62.9; Platelet Count 210 10^3/uL (130-400); RBC 3.61 10^6/uL (4.36-5.78); RDW 12.9 % (11.8-14.1); RDW-SD 45.1 fL; WBC 4.69 10^3/uL (4.4-10.8)
[2023-01-20 08:18] LABS: ALT 15 U/L (16-63); AST 19 U/L (15-37); Albumin 3.8 g/dL (3.4-5.0); Alkaline Phosphatase 51 U/L (46-116); Anion Gap 9.9 mmol/L (3-11); BUN 46 mg/dL (7-18); Bilirubin, Total 0.3 mg/dL (0.2-1.0); CO2 28.1 mmol/L (21.0-32.0); CREATININE 1.7 mg/dL (0.70-1.30); Calcium 8.8 mg/dL (8.5-10.1); Chloride 105 mmol/L (98-107); Estimated GFR 41.78 (mL/min/1.73m2); Ferritin 175 ng/mL (26-388); Glucose 102 mg/dL (74-106); Potassium 4.1 mmol/L (3.5-5.1); Sodium 143 mmol/L (136-145); Total Protein 7.4 g/dL (6.4-8.2)
== END 2023-01-20 03:17 | disposition home or self-care (01) ==
PROVIDERS: PCP Family Medicine; Visit Provider Nurse Practitioner Family
DX: N18.31 Chronic kidney disease, stage 3a (principal); D63.1 Anemia in chronic kidney disease
CPT/HCPCS: 36415; 80053; 82728; 85025

== ENCOUNTER → 2023-02-09 10:44 | Outpatient (BNVA) | payer MEDICARE, SELFPAY | PROVIDERS: PCP Family Medicine; Referring Provider Family Medicine; Visit Provider Psychiatry & Neurology Neurology | DX: I95.1 Orthostatic hypotension (principal); G20 Parkinson's disease; K59.00 Constipation, unspecified; I12.9 Hypertensive chronic kidney disease with stage 1 through stage 4 chronic kidney disease, or unspecified chronic kidney disease; N18.9 Chronic kidney disease, unspecified | CPT/HCPCS: 99214 ==

== ENCOUNTER 2023-02-17 04:20 | Outpatient (CLI) | payer MEDICARE, SELFPAY ==
[2023-02-17 08:06] LABS: Abs Immature Grans 0.01 10^3/uL (0.0-0.06); Absolute Basophil Count 0.07 10^3/uL (0.0-0.2); Absolute Eosinophil Count 0.39 10^3/uL (0.0-0.7); Absolute Lymphocyte Count 0.87 10^3/uL (1.2-3.4); Absolute Monocyte Count 0.32 10^3/uL (0.1-0.8); Absolute Neutrophil Count 3.44 10^3/uL (1.2-6.7); Basophils % 1.4; Eosinophils % 7.6; HCT 35.7 % (40.0-50.0); HGB 11.7 g/dL (13.5-17.5); Immature Grans % 0.2; Lymphocytes % 17.1; MCH 30.9 pg (27.0-33.0); MCHC 32.8 % (32.0-36.0); MCV 94 fL (80-95); MPV 8.7 fL (8.0-11.0); Monocytes % 6.3; Neutrophils % 67.4; Platelet Count 218 10^3/uL (130-400); RBC 3.79 10^6/uL (4.36-5.78); RDW 12.6 % (11.8-14.1)
[2023-02-17 08:34] LABS: ALT 6 U/L (16-63); AST 15 U/L (15-37); Albumin 3.9 g/dL (3.4-5.0); Alkaline Phosphatase 54 U/L (46-116); Anion Gap 7.3 mmol/L (3-11); BUN 34 mg/dL (7-18); Bilirubin, Total 0.4 mg/dL (0.2-1.0); CO2 29.7 mmol/L (21.0-32.0); CREATININE 1.5 mg/dL (0.70-1.30); Calcium 9.1 mg/dL (8.5-10.1); Chloride 102 mmol/L (98-107); Estimated GFR 48.25 (mL/min/1.73m2); Ferritin 208 ng/mL (26-388); Glucose 101 mg/dL (74-106); Potassium 4.7 mmol/L (3.5-5.1); Sodium 139 mmol/L (136-145); Total Protein 7.3 g/dL (6.4-8.2)
== END 2023-02-17 04:21 | disposition home or self-care (01) ==
PROVIDERS: PCP Family Medicine; Visit Provider Nurse Practitioner Family
DX: N18.31 Chronic kidney disease, stage 3a (principal); D63.1 Anemia in chronic kidney disease
CPT/HCPCS: 36415; 80053; 82728; 85025

== ENCOUNTER 2023-03-03 05:02 | Outpatient (CLI) | payer MEDICARE, SELFPAY ==
[2023-03-03 08:00] LABS: Abs Immature Grans 0.01 10^3/uL (0.0-0.06); Absolute Basophil Count 0.04 10^3/uL (0.0-0.2); Absolute Eosinophil Count 0.43 10^3/uL (0.0-0.7); Absolute Lymphocyte Count 0.65 10^3/uL (1.2-3.4); Absolute Monocyte Count 0.32 10^3/uL (0.1-0.8); Absolute Neutrophil Count 2.92 10^3/uL (1.2-6.7); Basophils % 0.9; Eosinophils % 9.8; HCT 35.2 % (40.0-50.0); HGB 11.3 g/dL (13.5-17.5); Immature Grans % 0.2; Lymphocytes % 14.9; MCH 30.4 pg (27.0-33.0); MCHC 32.1 % (32.0-36.0); MCV 95 fL (80-95); MPV 8.3 fL (8.0-11.0); Monocytes % 7.3; Neutrophils % 66.9; Platelet Count 221 10^3/uL (130-400); RBC 3.72 10^6/uL (4.36-5.78); RDW 13.3 % (11.8-14.1); RDW-SD 46.6 fL; WBC 4.37 10^3/uL (4.4-10.8)
[2023-03-03 08:28] LABS: ALT 8 U/L (16-63); AST 11 U/L (15-37); Albumin 3.7 g/dL (3.4-5.0); Alkaline Phosphatase 48 U/L (46-116); Anion Gap 11.1 mmol/L (3-11); BUN 46 mg/dL (7-18); Bilirubin, Total 0.4 mg/dL (0.2-1.0); CO2 26.9 mmol/L (21.0-32.0); CREATININE 1.7 mg/dL (0.70-1.30); Calcium 9.3 mg/dL (8.5-10.1); Chloride 107 mmol/L (98-107); Estimated GFR 41.52 (mL/min/1.73m2); Ferritin 125 ng/mL (26-388); Glucose 107 mg/dL (74-106); Sodium 145 mmol/L (136-145); Total Protein 6.9 g/dL (6.4-8.2)
== END 2023-03-03 05:03 | disposition home or self-care (01) ==
PROVIDERS: PCP Family Medicine; Visit Provider Nurse Practitioner Family
DX: N18.31 Chronic kidney disease, stage 3a (principal); D63.1 Anemia in chronic kidney disease
CPT/HCPCS: 36415; 80053; 82728; 85025

== ENCOUNTER 2023-03-31 02:21 | Outpatient (CLI) | payer MEDICARE, SELFPAY ==
[2023-03-31 09:36] LABS: ALT 18 U/L (16-63); AST 15 U/L (15-37); Albumin 3.8 g/dL (3.4-5.0); Alkaline Phosphatase 53 U/L (46-116); Anion Gap 6.6 mmol/L (3-11); BUN 38 mg/dL (7-18); Bilirubin, Total 0.3 mg/dL (0.2-1.0); CO2 29.4 mmol/L (21.0-32.0); CREATININE 1.5 mg/dL (0.70-1.30); Calcium 9.3 mg/dL (8.5-10.1); Chloride 105 mmol/L (98-107); Estimated GFR 48.25 (mL/min/1.73m2); Ferritin 176 ng/mL (26-388); Glucose 106 mg/dL (74-106); Sodium 141 mmol/L (136-145); Total Protein 7.1 g/dL (6.4-8.2)
[2023-03-31 09:37] LABS: Abs Immature Grans 0.01 10^3/uL (0.0-0.06); Absolute Basophil Count 0.07 10^3/uL (0.0-0.2); Absolute Eosinophil Count 0.41 10^3/uL (0.0-0.7); Absolute Lymphocyte Count 0.95 10^3/uL (1.2-3.4); Absolute Monocyte Count 0.32 10^3/uL (0.1-0.8); Absolute Neutrophil Count 3.08 10^3/uL (1.2-6.7); Basophils % 1.4; Eosinophils % 8.5; HCT 36.6 % (40.0-50.0); Immature Grans % 0.2; Lymphocytes % 19.6; MCHC 32.8 % (32.0-36.0); MCV 95 fL (80-95); MPV 9.6 fL (8.0-11.0); Monocytes % 6.6; Neutrophils % 63.7; Platelet Count 253 10^3/uL (130-400); RBC 3.87 10^6/uL (4.36-5.78); RDW 12.6 % (11.8-14.1); RDW-SD 43.3 fL; WBC 4.84 10^3/uL (4.4-10.8)
== END 2023-03-31 02:22 | disposition home or self-care (01) ==
LOC: LBO 02:21
PROVIDERS: PCP Family Medicine; Visit Provider Nurse Practitioner Family
DX: N18.31 Chronic kidney disease, stage 3a (principal); D63.1 Anemia in chronic kidney disease
CPT/HCPCS: 36415; 80053; 82728; 85025

== ENCOUNTER 2023-04-28 01:14 | Outpatient (CLI) | payer MEDICARE, SELFPAY ==
[2023-04-28 10:11] LABS: ALT 11 U/L (16-63); AST 15 U/L (15-37); Albumin 3.9 g/dL (3.4-5.0); Alkaline Phosphatase 47 U/L (46-116); Anion Gap 11.8 mmol/L (3-11); BUN 47 mg/dL (7-18); Bilirubin, Total 0.4 mg/dL (0.2-1.0); CO2 24.2 mmol/L (21.0-32.0); CREATININE 1.7 mg/dL (0.70-1.30); Calcium 9.5 mg/dL (8.5-10.1); Chloride 102 mmol/L (98-107); Estimated GFR 41.52 (mL/min/1.73m2); Ferritin 228 ng/mL (26-388); Glucose 112 mg/dL (74-106); Potassium 4.1 mmol/L (3.5-5.1); Sodium 138 mmol/L (136-145); Total Protein 7.5 g/dL (6.4-8.2)
[2023-04-28 10:12] LABS: Abs Immature Grans 0.01 10^3/uL (0.0-0.06); Absolute Basophil Count 0.06 10^3/uL (0.0-0.2); Absolute Eosinophil Count 0.44 10^3/uL (0.0-0.7); Absolute Lymphocyte Count 1.15 10^3/uL (1.2-3.4); Absolute Monocyte Count 0.37 10^3/uL (0.1-0.8); Absolute Neutrophil Count 2.72 10^3/uL (1.2-6.7); Basophils % 1.3; Eosinophils % 9.3; HCT 33.6 % (40.0-50.0); Immature Grans % 0.2; Lymphocytes % 24.2; MCH 30.6 pg (27.0-33.0); MCHC 32.7 % (32.0-36.0); MCV 94 fL (80-95); MPV 8.9 fL (8.0-11.0); Monocytes % 7.8; Neutrophils % 57.2; Platelet Count 241 10^3/uL (130-400); RBC 3.59 10^6/uL (4.36-5.78); RDW 12.6 % (11.8-14.1); RDW-SD 43.4 fL; WBC 4.75 10^3/uL (4.4-10.8)
== END 2023-04-28 01:15 | disposition home or self-care (01) ==
LOC: LBO 01:14
PROVIDERS: PCP Family Medicine; Visit Provider Nurse Practitioner Family
DX: N18.31 Chronic kidney disease, stage 3a (principal); D63.1 Anemia in chronic kidney disease
CPT/HCPCS: 36415; 80053; 82728; 85025

== ENCOUNTER 2023-05-26 02:15 | Outpatient (CLI) | payer MEDICARE, SELFPAY ==
[2023-05-26 09:49] LABS: ALT 8 U/L (16-63); AST 15 U/L (15-37); Albumin 4.2 g/dL (3.4-5.0); Alkaline Phosphatase 49 U/L (46-116); Anion Gap 11.6 mmol/L (3-11); BUN 39 mg/dL (7-18); Bilirubin, Total 0.3 mg/dL (0.2-1.0); CO2 27.4 mmol/L (21.0-32.0); CREATININE 1.5 mg/dL (0.70-1.30); Calcium 9.8 mg/dL (8.5-10.1); Chloride 101 mmol/L (98-107); Estimated GFR 48.25 (mL/min/1.73m2); Ferritin 216 ng/mL (26-388); Glucose 96 mg/dL (74-106); Sodium 140 mmol/L (136-145); Total Protein 7.7 g/dL (6.4-8.2)
[2023-05-26 10:26] LABS: Abs Immature Grans 0.03 10^3/uL (0.0-0.06); Absolute Basophil Count 0.06 10^3/uL (0.0-0.2); Absolute Eosinophil Count 0.37 10^3/uL (0.0-0.7); Absolute Lymphocyte Count 0.92 10^3/uL (1.2-3.4); Absolute Monocyte Count 0.32 10^3/uL (0.1-0.8); Absolute Neutrophil Count 3.22 10^3/uL (1.2-6.7); Basophils % 1.2; Eosinophils % 7.5; HCT 36.5 % (40.0-50.0); Immature Grans % 0.6; Lymphocytes % 18.7; MCHC 32.9 % (32.0-36.0); MCV 94 fL (80-95); Monocytes % 6.5; Neutrophils % 65.5; Platelet Count 286 10^3/uL (130-400); RBC 3.87 10^6/uL (4.36-5.78); RDW 12.6 % (11.8-14.1); RDW-SD 44.1 fL; WBC 4.92 10^3/uL (4.4-10.8)
== END 2023-05-26 02:16 | disposition home or self-care (01) ==
LOC: LBO 02:15
PROVIDERS: Nurse Practitioner Family; PCP Family Medicine; Visit Provider Internal Medicine Hematology & Oncology
DX: D63.1 Anemia in chronic kidney disease (principal); N18.31 Chronic kidney disease, stage 3a
CPT/HCPCS: 36415; 80053; 82728; 85025

== ENCOUNTER → 2023-06-15 11:12 | Outpatient (BNVA) | payer MEDICARE, SELFPAY | PROVIDERS: PCP Family Medicine; Visit Provider Psychiatry & Neurology Neurology | DX: G20.A1 Parkinson's disease without dyskinesia, without mention of fluctuations (principal); I95.1 Orthostatic hypotension; K59.00 Constipation, unspecified; M25.572 Pain in left ankle and joints of left foot; I12.9 Hypertensive chronic kidney disease with stage 1 through stage 4 chronic kidney disease, or unspecified chronic kidney disease; N18.9 Chronic kidney disease, unspecified | CPT/HCPCS: 99214 ==

== ENCOUNTER 2023-06-23 04:19 | Outpatient (CLI) | payer MEDICARE, SELFPAY ==
[2023-06-23 08:09] LABS: Abs Immature Grans 0.01 10^3/uL (0.0-0.06); Absolute Basophil Count 0.04 10^3/uL (0.0-0.2); Absolute Eosinophil Count 0.44 10^3/uL (0.0-0.7); Absolute Lymphocyte Count 1.08 10^3/uL (1.2-3.4); Absolute Neutrophil Count 3.26 10^3/uL (1.2-6.7); Basophils % 0.8; Eosinophils % 8.4; HCT 33.7 % (40.0-50.0); HGB 10.8 g/dL (13.5-17.5); Immature Grans % 0.2; Lymphocytes % 20.7; MCH 30.2 pg (27.0-33.0); MCV 94 fL (80-95); MPV 8.9 fL (8.0-11.0); Monocytes % 7.6; Neutrophils % 62.3; Platelet Count 274 10^3/uL (130-400); RBC 3.58 10^6/uL (4.36-5.78); RDW 12.3 % (11.8-14.1); RDW-SD 42.6 fL; WBC 5.23 10^3/uL (4.4-10.8)
[2023-06-23 08:38] LABS: ALT 8 U/L (16-63); AST 15 U/L (15-37); Albumin 3.9 g/dL (3.4-5.0); Alkaline Phosphatase 51 U/L (46-116); Anion Gap 8.5 mmol/L (3-11); BUN 41 mg/dL (7-18); Bilirubin, Total 0.3 mg/dL (0.2-1.0); CO2 30.5 mmol/L (21.0-32.0); CREATININE 1.6 mg/dL (0.70-1.30); Calcium 9.7 mg/dL (8.5-10.1); Chloride 102 mmol/L (98-107); Estimated GFR 44.65 (mL/min/1.73m2); Ferritin 252 ng/mL (26-388); Glucose 96 mg/dL (74-106); Sodium 141 mmol/L (136-145); Total Protein 7.8 g/dL (6.4-8.2)
== END 2023-06-23 04:20 | disposition home or self-care (01) ==
PROVIDERS: PCP Family Medicine; Visit Provider Nurse Practitioner Family
DX: N18.31 Chronic kidney disease, stage 3a (principal)
CPT/HCPCS: 36415; 80053; 82728; 85025

== ENCOUNTER 2023-07-21 03:10 | Outpatient (CLI) | payer MEDICARE, SELFPAY ==
[2023-07-21 08:17] LABS: Abs Immature Grans 0.02 10^3/uL (0.0-0.06); Absolute Basophil Count 0.06 10^3/uL (0.0-0.2); Absolute Eosinophil Count 0.52 10^3/uL (0.0-0.7); Absolute Lymphocyte Count 1.02 10^3/uL (1.2-3.4); Absolute Monocyte Count 0.36 10^3/uL (0.1-0.8); Absolute Neutrophil Count 3.11 10^3/uL (1.2-6.7); Basophils % 1.2; Eosinophils % 10.2; HGB 11.1 g/dL (13.5-17.5); Immature Grans % 0.4; MCH 30.3 pg (27.0-33.0); MCHC 31.7 % (32.0-36.0); MCV 96 fL (80-95); MPV 8.9 fL (8.0-11.0); Monocytes % 7.1; Neutrophils % 61.1; Platelet Count 259 10^3/uL (130-400); RBC 3.66 10^6/uL (4.36-5.78); RDW 12.8 % (11.8-14.1); RDW-SD 45.1 fL; WBC 5.09 10^3/uL (4.4-10.8)
[2023-07-21 08:46] LABS: ALT 16 U/L (16-63); AST 15 U/L (15-37); Albumin 4.1 g/dL (3.4-5.0); Alkaline Phosphatase 46 U/L (46-116); Anion Gap 6.9 mmol/L (3-11); BUN 44 mg/dL (7-18); Bilirubin, Total 0.4 mg/dL (0.2-1.0); CO2 29.1 mmol/L (21.0-32.0); CREATININE 1.5 mg/dL (0.70-1.30); Calcium 9.9 mg/dL (8.5-10.1); Chloride 103 mmol/L (98-107); Estimated GFR 48.25 (mL/min/1.73m2); Ferritin 216 ng/mL (26-388); Glucose 99 mg/dL (74-106); Potassium 4.3 mmol/L (3.5-5.1); Sodium 139 mmol/L (136-145); Total Protein 7.6 g/dL (6.4-8.2)
== END 2023-07-21 03:11 | disposition home or self-care (01) ==
PROVIDERS: PCP Family Medicine; Visit Provider Nurse Practitioner Family
DX: D63.1 Anemia in chronic kidney disease (principal)
CPT/HCPCS: 36415; 80053; 82728; 85025

== ENCOUNTER 2023-08-18 04:45 | Outpatient (CLI) | payer MEDICARE, SELFPAY ==
[2023-08-18 09:19] LABS: Abs Immature Grans 0.01 10^3/uL (0.0-0.06); Absolute Basophil Count 0.06 10^3/uL (0.0-0.2); Absolute Lymphocyte Count 0.75 10^3/uL (1.2-3.4); Absolute Monocyte Count 0.36 10^3/uL (0.1-0.8); Absolute Neutrophil Count 3.03 10^3/uL (1.2-6.7); Basophils % 1.3; Eosinophils % 10.6; HCT 33.3 % (40.0-50.0); HGB 10.8 g/dL (13.5-17.5); Immature Grans % 0.2; Lymphocytes % 15.9; MCH 30.5 pg (27.0-33.0); MCHC 32.4 % (32.0-36.0); MCV 94 fL (80-95); MPV 8.9 fL (8.0-11.0); Monocytes % 7.6; Neutrophils % 64.4; Platelet Count 219 10^3/uL (130-400); RBC 3.54 10^6/uL (4.36-5.78); RDW 12.5 % (11.8-14.1); RDW-SD 43.7 fL; WBC 4.71 10^3/uL (4.4-10.8)
[2023-08-18 09:47] LABS: ALT 12 U/L (16-63); AST 16 U/L (15-37); Albumin 3.7 g/dL (3.4-5.0); Alkaline Phosphatase 38 U/L (46-116); Anion Gap 7.3 mmol/L (3-11); BUN 50 mg/dL (7-18); Bilirubin, Total 0.3 mg/dL (0.2-1.0); CO2 28.7 mmol/L (21.0-32.0); CREATININE 1.6 mg/dL (0.70-1.30); Calcium 8.8 mg/dL (8.5-10.1); Chloride 106 mmol/L (98-107); Estimated GFR 44.65 (mL/min/1.73m2); Ferritin 165 ng/mL (26-388); Glucose 77 mg/dL (74-106); Potassium 4.3 mmol/L (3.5-5.1); Sodium 142 mmol/L (136-145); Total Protein 7.1 g/dL (6.4-8.2)
== END 2023-08-18 04:46 | disposition home or self-care (01) ==
PROVIDERS: PCP Family Medicine; Visit Provider Nurse Practitioner Family
DX: N18.31 Chronic kidney disease, stage 3a (principal)
CPT/HCPCS: 36415; 80053; 82728; 85025

== ENCOUNTER 2023-09-15 05:23 | Outpatient (CLI) | payer MEDICARE, SELFPAY ==
[2023-09-15 08:13] LABS: Abs Immature Grans 0.01 10^3/uL (0.0-0.06); Absolute Basophil Count 0.09 10^3/uL (0.0-0.2); Absolute Lymphocyte Count 1.08 10^3/uL (1.2-3.4); Absolute Neutrophil Count 2.62 10^3/uL (1.2-6.7); Basophils % 1.9; Eosinophils % 10.6; HCT 36.1 % (40.0-50.0); HGB 11.6 g/dL (13.5-17.5); Immature Grans % 0.2; MCH 30.3 pg (27.0-33.0); MCHC 32.1 % (32.0-36.0); MCV 94 fL (80-95); MPV 9.1 fL (8.0-11.0); Monocytes % 8.5; Neutrophils % 55.8; Platelet Count 221 10^3/uL (130-400); RBC 3.83 10^6/uL (4.36-5.78); RDW 12.8 % (11.8-14.1)
[2023-09-15 08:41] LABS: ALT 7 U/L (16-63); AST 15 U/L (15-37); Alkaline Phosphatase 46 U/L (46-116); Anion Gap 11.3 mmol/L (3-11); BUN 50 mg/dL (7-18); Bilirubin, Total 0.4 mg/dL (0.2-1.0); CO2 27.7 mmol/L (21.0-32.0); CREATININE 1.5 mg/dL (0.70-1.30); Calcium 9.5 mg/dL (8.5-10.1); Chloride 102 mmol/L (98-107); Estimated GFR 48.25 (mL/min/1.73m2); Ferritin 191 ng/mL (26-388); Glucose 100 mg/dL (74-106); Potassium 3.8 mmol/L (3.5-5.1); Sodium 141 mmol/L (136-145); Total Protein 7.5 g/dL (6.4-8.2)
== END 2023-09-15 05:24 | disposition home or self-care (01) ==
LOC: LBO 05:23
PROVIDERS: PCP Family Medicine; Visit Provider Nurse Practitioner Family
DX: N18.31 Chronic kidney disease, stage 3a (principal)
CPT/HCPCS: 36415; 80053; 82728; 85025

== ENCOUNTER 2023-10-13 05:08 | Outpatient (CLI) | payer MEDICARE, SELFPAY ==
[2023-10-13 08:46] LABS: Abs Immature Grans 0.01 10^3/uL (0.0-0.06); Absolute Basophil Count 0.05 10^3/uL (0.0-0.2); Absolute Eosinophil Count 0.33 10^3/uL (0.0-0.7); Absolute Lymphocyte Count 0.97 10^3/uL (1.2-3.4); Absolute Monocyte Count 0.37 10^3/uL (0.1-0.8); Absolute Neutrophil Count 2.75 10^3/uL (1.2-6.7); Basophils % 1.1; Eosinophils % 7.4; HCT 34.2 % (40.0-50.0); HGB 10.7 g/dL (13.5-17.5); Immature Grans % 0.2; Lymphocytes % 21.7; MCH 29.7 pg (27.0-33.0); MCHC 31.3 % (32.0-36.0); MCV 95 fL (80-95); MPV 9.1 fL (8.0-11.0); Monocytes % 8.3; Neutrophils % 61.3; Platelet Count 209 10^3/uL (130-400); RDW 12.5 % (11.8-14.1); RDW-SD 43.8 fL; WBC 4.48 10^3/uL (4.4-10.8)
[2023-10-13 09:13] LABS: ALT 10 U/L (16-63); AST 28 U/L (15-37); Alkaline Phosphatase 47 U/L (46-116); Anion Gap 9.9 mmol/L (3-11); BUN 47 mg/dL (7-18); Bilirubin, Total 0.3 mg/dL (0.2-1.0); CO2 29.1 mmol/L (21.0-32.0); CREATININE 1.5 mg/dL (0.70-1.30); Calcium 9.3 mg/dL (8.5-10.1); Chloride 104 mmol/L (98-107); Estimated GFR 48.25 (mL/min/1.73m2); Ferritin 207 ng/mL (26-388); Glucose 94 mg/dL (74-106); Potassium 4.7 mmol/L (3.5-5.1); Sodium 143 mmol/L (136-145); Total Protein 7.4 g/dL (6.4-8.2)
== END 2023-10-13 05:09 | disposition home or self-care (01) ==
PROVIDERS: PCP Family Medicine; Visit Provider Nurse Practitioner Family
DX: N18.31 Chronic kidney disease, stage 3a (principal)
CPT/HCPCS: 36415; 80053; 82728; 85025

== ENCOUNTER 2023-11-10 05:50 | Outpatient (CLI) | payer MEDICARE, SELFPAY ==
[2023-11-10 08:55] LABS: Abs Immature Grans 0.02 10^3/uL (0.0-0.06); Absolute Basophil Count 0.06 10^3/uL (0.0-0.2); Absolute Eosinophil Count 0.36 10^3/uL (0.0-0.7); Absolute Lymphocyte Count 0.94 10^3/uL (1.2-3.4); Absolute Monocyte Count 0.45 10^3/uL (0.1-0.8); Absolute Neutrophil Count 4.53 10^3/uL (1.2-6.7); Basophils % 0.9; Eosinophils % 5.7; HCT 35.2 % (40.0-50.0); HGB 11.1 g/dL (13.5-17.5); Immature Grans % 0.3; Lymphocytes % 14.8; MCH 29.8 pg (27.0-33.0); MCHC 31.5 % (32.0-36.0); MCV 95 fL (80-95); MPV 9.1 fL (8.0-11.0); Monocytes % 7.1; Neutrophils % 71.2; Platelet Count 217 10^3/uL (130-400); RBC 3.72 10^6/uL (4.36-5.78); RDW 13.1 % (11.8-14.1); RDW-SD 45.5 fL; WBC 6.36 10^3/uL (4.4-10.8)
[2023-11-10 09:20] LABS: Ferritin 229 ng/mL (26-388)
== END 2023-11-10 05:51 | disposition home or self-care (01) ==
PROVIDERS: Internal Medicine Hematology & Oncology; PCP Family Medicine; Visit Provider Nurse Practitioner Family
DX: N18.31 Chronic kidney disease, stage 3a (principal)
CPT/HCPCS: 36415; 82728; 85025

== ENCOUNTER → 2023-11-14 12:14 | Outpatient (BNVA) | payer MEDICARE, SELFPAY | PROVIDERS: PCP Family Medicine; Visit Provider Psychiatry & Neurology Neurology | DX: G20.C Parkinsonism, unspecified (principal); I95.1 Orthostatic hypotension; K59.00 Constipation, unspecified; N18.9 Chronic kidney disease, unspecified; M25.572 Pain in left ankle and joints of left foot | CPT/HCPCS: 99215 ==

== ENCOUNTER 2023-12-08 05:06 | Outpatient (CLI) | payer MEDICARE, SELFPAY ==
[2023-12-08 08:45] LABS: Abs Immature Grans 0.02 10^3/uL (0.0-0.06); Absolute Basophil Count 0.05 10^3/uL (0.0-0.2); Absolute Eosinophil Count 0.24 10^3/uL (0.0-0.7); Absolute Lymphocyte Count 0.86 10^3/uL (1.2-3.4); Absolute Monocyte Count 0.37 10^3/uL (0.1-0.8); Absolute Neutrophil Count 3.04 10^3/uL (1.2-6.7); Basophils % 1.1 %; Eosinophils % 5.2 %; HGB 10.5 g/dL (13.5-17.5); Immature Grans % 0.4 %; Lymphocytes % 18.8 %; MCH 30.5 pg (27.0-33.0); MCHC 31.8 % (32.0-36.0); MCV 96 fL (80-95); MPV 9.2 fL (8.0-11.0); Monocytes % 8.1 %; Neutrophils % 66.4 %; Platelet Count 258 10^3/uL (130-400); RBC 3.44 10^6/uL (4.36-5.78); RDW-SD 45.9 fL; WBC 4.58 10^3/uL (4.4-10.8)
[2023-12-08 09:12] LABS: Ferritin 219 ng/mL (26-388)
== END 2023-12-08 05:07 | disposition home or self-care (01) ==
PROVIDERS: PCP Family Medicine; Visit Provider Nurse Practitioner Family
DX: N18.31 Chronic kidney disease, stage 3a (principal)
CPT/HCPCS: 36415; 82728; 85025

== ENCOUNTER 2024-01-05 01:10 | Outpatient (CLI) | payer MEDICARE, SELFPAY ==
[2024-01-05 08:56] LABS: Abs Immature Grans 0.02 10^3/uL (0.0-0.06); Absolute Basophil Count 0.05 10^3/uL (0.0-0.2); Absolute Eosinophil Count 0.39 10^3/uL (0.0-0.7); Absolute Lymphocyte Count 0.89 10^3/uL (1.2-3.4); Absolute Monocyte Count 0.29 10^3/uL (0.1-0.8); Absolute Neutrophil Count 3.01 10^3/uL (1.2-6.7); Basophils % 1.1 %; Eosinophils % 8.4 %; HCT 33.5 % (40.0-50.0); HGB 10.6 g/dL (13.5-17.5); Immature Grans % 0.4 %; Lymphocytes % 19.1 %; MCH 30.5 pg (27.0-33.0); MCHC 31.6 % (32.0-36.0); MCV 96 fL (80-95); MPV 9.1 fL (8.0-11.0); Monocytes % 6.2 %; Neutrophils % 64.8 %; Platelet Count 212 10^3/uL (130-400); RBC 3.48 10^6/uL (4.36-5.78); RDW 12.6 % (11.8-14.1); RDW-SD 44.7 fL; WBC 4.65 10^3/uL (4.4-10.8)
[2024-01-05 09:26] LABS: Ferritin 169 ng/mL (26-388)
== END 2024-01-05 01:11 | disposition home or self-care (01) ==
LOC: LBO 01:10
PROVIDERS: PCP Family Medicine; Visit Provider Nurse Practitioner Family
DX: N18.31 Chronic kidney disease, stage 3a (principal)
CPT/HCPCS: 36415; 82728; 85025

== ENCOUNTER 2024-02-02 02:37 | Outpatient (CLI) | payer MEDICARE, SELFPAY ==
[2024-02-02 08:36] LABS: Abs Immature Grans 0.01 10^3/uL (0.0-0.06); Absolute Basophil Count 0.06 10^3/uL (0.0-0.2); Absolute Eosinophil Count 0.51 10^3/uL (0.0-0.7); Absolute Lymphocyte Count 0.95 10^3/uL (1.2-3.4); Absolute Monocyte Count 0.39 10^3/uL (0.1-0.8); Absolute Neutrophil Count 3.41 10^3/uL (1.2-6.7); Basophils % 1.1 %; Eosinophils % 9.6 %; HCT 35.1 % (40.0-50.0); HGB 11.4 g/dL (13.5-17.5); Immature Grans % 0.2 %; Lymphocytes % 17.8 %; MCH 30.2 pg (27.0-33.0); MCHC 32.5 % (32.0-36.0); MCV 93 fL (80-95); MPV 9.1 fL (8.0-11.0); Monocytes % 7.3 %; Platelet Count 220 10^3/uL (130-400); RBC 3.78 10^6/uL (4.36-5.78); RDW 12.5 % (11.8-14.1); RDW-SD 42.9 fL; WBC 5.33 10^3/uL (4.4-10.8)
[2024-02-02 09:04] LABS: Ferritin 173 ng/mL (26-388)
== END 2024-02-02 02:38 | disposition home or self-care (01) ==
PROVIDERS: PCP Family Medicine; Visit Provider Nurse Practitioner Family
DX: N18.31 Chronic kidney disease, stage 3a (principal); D63.1 Anemia in chronic kidney disease
CPT/HCPCS: 36415; 82728; 85025

== ENCOUNTER → 2024-02-13 12:48 | Outpatient (BNVA) | payer MEDICARE, SELFPAY | PROVIDERS: PCP Family Medicine; Visit Provider Psychiatry & Neurology Neurology | DX: I95.1 Orthostatic hypotension (principal); K59.00 Constipation, unspecified; N18.9 Chronic kidney disease, unspecified; M25.572 Pain in left ankle and joints of left foot | CPT/HCPCS: 99214 ==

== ENCOUNTER 2024-03-01 04:07 | Outpatient (CLI) | payer MEDICARE, SELFPAY ==
[2024-03-01 08:01] LABS: Abs Immature Grans 0.02 10^3/uL (0.0-0.06); Absolute Basophil Count 0.03 10^3/uL (0.0-0.2); Absolute Eosinophil Count 0.23 10^3/uL (0.0-0.7); Absolute Lymphocyte Count 0.87 10^3/uL (1.2-3.4); Absolute Monocyte Count 0.39 10^3/uL (0.1-0.8); Basophils % 0.7 %; Eosinophils % 5.6 %; HCT 34.4 % (40.0-50.0); HGB 11.3 g/dL (13.5-17.5); Immature Grans % 0.5 %; MCH 30.3 pg (27.0-33.0); MCHC 32.8 % (32.0-36.0); MCV 92 fL (80-95); MPV 9.5 fL (8.0-11.0); Monocytes % 9.4 %; Neutrophils % 62.8 %; Platelet Count 202 10^3/uL (130-400); RBC 3.73 10^6/uL (4.36-5.78); RDW 12.6 % (11.8-14.1); RDW-SD 42.5 fL; WBC 4.14 10^3/uL (4.4-10.8)
[2024-03-01 08:28] LABS: Ferritin 194 ng/mL (26-388)
== END 2024-03-01 04:08 | disposition home or self-care (01) ==
PROVIDERS: PCP Family Medicine; Visit Provider Nurse Practitioner Family
DX: N18.31 Chronic kidney disease, stage 3a (principal)
CPT/HCPCS: 36415; 82728; 85025

== ENCOUNTER 2024-03-29 03:28 | Outpatient (CLI) | payer MEDICARE, SELFPAY ==
[2024-03-29 12:30] LABS: Ferritin 210 ng/mL (26-388)
[2024-03-29 12:35] LABS: Abs Immature Grans 0.01 10^3/uL (0.0-0.06); Absolute Basophil Count 0.07 10^3/uL (0.0-0.2); Absolute Eosinophil Count 0.54 10^3/uL (0.0-0.7); Absolute Lymphocyte Count 1.17 10^3/uL (1.2-3.4); Absolute Monocyte Count 0.44 10^3/uL (0.1-0.8); Absolute Neutrophil Count 2.92 10^3/uL (1.2-6.7); Basophils % 1.4 %; Eosinophils % 10.5 %; HCT 35.5 % (40.0-50.0); HGB 11.4 g/dL (13.5-17.5); Immature Grans % 0.2 %; Lymphocytes % 22.7 %; MCH 30.4 pg (27.0-33.0); MCHC 32.1 % (32.0-36.0); MCV 95 fL (80-95); MPV 8.9 fL (8.0-11.0); Monocytes % 8.5 %; Neutrophils % 56.7 %; Platelet Count 290 10^3/uL (130-400); RBC 3.75 10^6/uL (4.36-5.78); RDW 12.9 % (11.8-14.1); RDW-SD 44.9 fL; WBC 5.15 10^3/uL (4.4-10.8)
== END 2024-03-29 03:29 | disposition home or self-care (01) ==
LOC: LBO 03:29
PROVIDERS: Nurse Practitioner Family; PCP Family Medicine; Visit Provider Internal Medicine Hematology & Oncology
DX: N18.31 Chronic kidney disease, stage 3a; D63.1 Anemia in chronic kidney disease
CPT/HCPCS: 36415; 82728; 85025

== ENCOUNTER 2024-04-26 03:04 | Outpatient (CLI) | payer MEDICARE, SELFPAY ==
[2024-04-26 10:46] LABS: CREATININE 1.7 mg/dL (0.70-1.30); Estimated GFR 41.26 (mL/min/1.73m2)
[2024-04-26 12:32] LABS: Abs Immature Grans 0.02 10^3/uL (0.0-0.06); Absolute Basophil Count 0.06 10^3/uL (0.0-0.2); Absolute Eosinophil Count 0.44 10^3/uL (0.0-0.7); Absolute Lymphocyte Count 1.11 10^3/uL (1.2-3.4); Absolute Monocyte Count 0.28 10^3/uL (0.1-0.8); Basophils % 1.4 %; Eosinophils % 10.2 %; HCT 33.1 % (40.0-50.0); HGB 10.6 g/dL (13.5-17.5); Immature Grans % 0.5 %; Lymphocytes % 25.8 %; MCH 30.4 pg (27.0-33.0); MCV 95 fL (80-95); MPV 9.7 fL (8.0-11.0); Monocytes % 6.5 %; Neutrophils % 55.6 %; Platelet Count 273 10^3/uL (130-400); RBC 3.49 10^6/uL (4.36-5.78); RDW-SD 44.6 fL; WBC 4.31 10^3/uL (4.4-10.8)
[2024-04-27 09:28] LABS: Hepatitis C Ab w Rflx HCV PCR Negative (Negative)
== END 2024-04-26 03:05 | disposition home or self-care (01) ==
LOC: LBO 03:05
PROVIDERS: PCP Family Medicine; Visit Provider Nurse Practitioner Family
DX: N18.31 Chronic kidney disease, stage 3a (principal); I10 Essential (primary) hypertension; Z11.59 Encounter for screening for other viral diseases; D63.1 Anemia in chronic kidney disease
CPT/HCPCS: 36415; 86803; 82565; 85025

== ENCOUNTER → 2024-05-14 13:20 | Outpatient (BNVA) | payer MEDICARE, SELFPAY | PROVIDERS: PCP Family Medicine; Visit Provider Psychiatry & Neurology Neurology | DX: G20.C Parkinsonism, unspecified (principal); I95.1 Orthostatic hypotension; K59.00 Constipation, unspecified; N18.9 Chronic kidney disease, unspecified; R63.4 Abnormal weight loss | CPT/HCPCS: 99214 ==

== ENCOUNTER 2024-05-24 03:30 | Outpatient (CLI) | payer MEDICARE, SELFPAY ==
[2024-05-24 07:23] LABS: Abs Immature Grans 0.01 10^3/uL (0.0-0.06); Absolute Basophil Count 0.05 10^3/uL (0.0-0.2); Absolute Eosinophil Count 0.33 10^3/uL (0.0-0.7); Absolute Lymphocyte Count 0.92 10^3/uL (1.2-3.4); Absolute Monocyte Count 0.32 10^3/uL (0.1-0.8); Absolute Neutrophil Count 2.46 10^3/uL (1.2-6.7); Basophils % 1.2 %; Eosinophils % 8.1 %; HCT 33.5 % (40.0-50.0); HGB 10.5 g/dL (13.5-17.5); Immature Grans % 0.2 %; Lymphocytes % 22.5 %; MCH 29.8 pg (27.0-33.0); MCHC 31.3 % (32.0-36.0); MCV 95 fL (80-95); MPV 9.2 fL (8.0-11.0); Monocytes % 7.8 %; Neutrophils % 60.2 %; Platelet Count 189 10^3/uL (130-400); RBC 3.52 10^6/uL (4.36-5.78); RDW-SD 45.1 fL; WBC 4.09 10^3/uL (4.4-10.8)
== END 2024-05-24 03:31 | disposition home or self-care (01) ==
PROVIDERS: PCP Family Medicine; Visit Provider Nurse Practitioner Family
DX: N18.31 Chronic kidney disease, stage 3a (principal)
CPT/HCPCS: 36415; 85025

== ENCOUNTER 2024-06-27 07:58 | Outpatient (CLI) | payer MEDICARE, SELFPAY ==
[2024-06-27 08:00] LABS: Abs Immature Grans 0.01 10^3/uL (0.0-0.06); Absolute Basophil Count 0.07 10^3/uL (0.0-0.2); Absolute Eosinophil Count 0.39 10^3/uL (0.0-0.7); Absolute Lymphocyte Count 0.66 10^3/uL (1.2-3.4); Absolute Monocyte Count 0.29 10^3/uL (0.1-0.8); Basophils % 1.7 %; Eosinophils % 9.2 %; HCT 32.2 % (40.0-50.0); HGB 10.2 g/dL (13.5-17.5); Immature Grans % 0.2 %; Lymphocytes % 15.6 %; MCHC 31.7 % (32.0-36.0); MCV 95 fL (80-95); Monocytes % 6.9 %; Neutrophils % 66.4 %; Platelet Count 213 10^3/uL (130-400); RDW 13.4 % (11.8-14.1); RDW-SD 46.4 fL; WBC 4.22 10^3/uL (4.4-10.8)
[2024-06-27 08:31] LABS: Ferritin 195 ng/mL (26-388)
== END 2024-06-27 07:59 | disposition home or self-care (01) ==
LOC: LBO 07:58
PROVIDERS: PCP Family Medicine; Referring Provider Nurse Practitioner Family; Visit Provider Nurse Practitioner Family
DX: N18.31 Chronic kidney disease, stage 3a (principal); D63.1 Anemia in chronic kidney disease
CPT/HCPCS: 36415; 82728; 85025

== ENCOUNTER 2024-07-19 04:01 | Outpatient (CLI) | payer MEDICARE, SELFPAY ==
[2024-07-19 07:14] LABS: Abs Immature Grans 0.01 10^3/uL (0.0-0.06); Absolute Basophil Count 0.05 10^3/uL (0.0-0.2); Absolute Eosinophil Count 0.59 10^3/uL (0.0-0.7); Absolute Lymphocyte Count 0.86 10^3/uL (1.2-3.4); Absolute Monocyte Count 0.38 10^3/uL (0.1-0.8); Absolute Neutrophil Count 2.54 10^3/uL (1.2-6.7); Basophils % 1.1 %; Eosinophils % 13.3 %; HCT 31.8 % (40.0-50.0); Immature Grans % 0.2 %; Lymphocytes % 19.4 %; MCH 29.7 pg (27.0-33.0); MCHC 31.4 % (32.0-36.0); MCV 94 fL (80-95); MPV 8.6 fL (8.0-11.0); Monocytes % 8.6 %; Neutrophils % 57.4 %; Platelet Count 214 10^3/uL (130-400); RBC 3.37 10^6/uL (4.36-5.78); RDW 13.6 % (11.8-14.1); RDW-SD 47.2 fL; WBC 4.43 10^3/uL (4.4-10.8)
== END 2024-07-19 04:02 | disposition home or self-care (01) ==
PROVIDERS: PCP Family Medicine; Visit Provider Nurse Practitioner Family
DX: N18.31 Chronic kidney disease, stage 3a (principal)
CPT/HCPCS: 36415; 82728; 85025

== ENCOUNTER → 2024-07-25 10:13 | Outpatient (BNVA) | payer MEDICARE, SELFPAY | PROVIDERS: PCP Family Medicine; Referring Provider Family Medicine; Visit Provider Psychiatry & Neurology Neurology | DX: G20.C Parkinsonism, unspecified (principal); I95.1 Orthostatic hypotension; K59.00 Constipation, unspecified; N18.9 Chronic kidney disease, unspecified; M25.572 Pain in left ankle and joints of left foot; R63.4 Abnormal weight loss | CPT/HCPCS: 99214 ==

== ENCOUNTER 2024-08-22 01:09 | Outpatient (CLI) | payer MEDICARE, SELFPAY ==
[2024-08-22 07:15] LABS: Abs Immature Grans 0.01 10^3/uL (0.0-0.06); Absolute Basophil Count 0.06 10^3/uL (0.0-0.2); Absolute Eosinophil Count 0.31 10^3/uL (0.0-0.7); Absolute Lymphocyte Count 0.79 10^3/uL (1.2-3.4); Absolute Monocyte Count 0.38 10^3/uL (0.1-0.8); Absolute Neutrophil Count 2.65 10^3/uL (1.2-6.7); Basophils % 1.4 %; Eosinophils % 7.4 %; HCT 33.3 % (40.0-50.0); HGB 10.2 g/dL (13.5-17.5); Immature Grans % 0.2 %; Lymphocytes % 18.8 %; MCH 29.1 pg (27.0-33.0); MCHC 30.6 % (32.0-36.0); MCV 95 fL (80-95); MPV 9.1 fL (8.0-11.0); Neutrophils % 63.2 %; Platelet Count 238 10^3/uL (130-400); RBC 3.51 10^6/uL (4.36-5.78); RDW 13.7 % (11.8-14.1); RDW-SD 47.4 fL
== END 2024-08-22 01:10 | disposition home or self-care (01) ==
PROVIDERS: PCP Family Medicine; Visit Provider Nurse Practitioner Family
DX: N18.31 Chronic kidney disease, stage 3a (principal); D63.1 Anemia in chronic kidney disease
CPT/HCPCS: 36415; 82728; 85025

== ENCOUNTER 2024-09-19 03:31 | Outpatient (CLI) | payer MEDICARE, SELFPAY ==
[2024-09-19 07:41] LABS: Abs Immature Grans 0.01 10^3/uL (0.0-0.06); Absolute Basophil Count 0.05 10^3/uL (0.0-0.2); Absolute Eosinophil Count 0.27 10^3/uL (0.0-0.7); Absolute Lymphocyte Count 0.91 10^3/uL (1.2-3.4); Absolute Monocyte Count 0.33 10^3/uL (0.1-0.8); Absolute Neutrophil Count 2.51 10^3/uL (1.2-6.7); Basophils % 1.2 %; Eosinophils % 6.6 %; HCT 32.1 % (40.0-50.0); HGB 10.2 g/dL (13.5-17.5); Immature Grans % 0.2 %; Lymphocytes % 22.3 %; MCH 29.2 pg (27.0-33.0); MCHC 31.8 % (32.0-36.0); MCV 92 fL (80-95); MPV 9.7 fL (8.0-11.0); Monocytes % 8.1 %; Neutrophils % 61.6 %; Platelet Count 254 10^3/uL (130-400); RBC 3.49 10^6/uL (4.36-5.78); RDW 13.2 % (11.8-14.1); RDW-SD 44.2 fL; WBC 4.08 10^3/uL (4.4-10.8)
[2024-09-19 07:57] LABS: ALT 6 U/L (16-63); AST 16 U/L (15-37); Albumin 3.8 g/dL (3.4-5.0); Alkaline Phosphatase 80 U/L (46-116); Anion Gap 8.3 mmol/L (3-11); BUN 41 mg/dL (7-18); Bilirubin, Total 0.27 mg/dL (0.2-1.0); CO2 29.7 mmol/L (21.0-32.0); CREATININE 1.5 mg/dL (0.70-1.30); Calcium 9.1 mg/dL (8.5-10.1); Chloride 106 mmol/L (98-107); Estimated GFR 47.95 (mL/min/1.73m2); Glucose 90 mg/dL (74-106); Potassium 4.2 mmol/L (3.5-5.1); Sodium 144 mmol/L (136-145); Total Protein 6.6 g/dL (6.4-8.2)
== END 2024-09-19 03:32 | disposition home or self-care (01) ==
LOC: LBO 03:31
PROVIDERS: PCP Family Medicine; Visit Provider Nurse Practitioner Family
DX: N18.31 Chronic kidney disease, stage 3a (principal); D63.8 Anemia in other chronic diseases classified elsewhere
CPT/HCPCS: 36415; 80053; 85025

== ENCOUNTER 2024-10-17 02:55 | Outpatient (CLI) | payer MEDICARE, SELFPAY ==
[2024-10-17 07:38] LABS: Abs Immature Grans 0.01 10^3/uL (0.0-0.06); Absolute Basophil Count 0.06 10^3/uL (0.0-0.2); Absolute Lymphocyte Count 0.91 10^3/uL (1.2-3.4); Absolute Monocyte Count 0.36 10^3/uL (0.1-0.8); Absolute Neutrophil Count 2.69 10^3/uL (1.2-6.7); Basophils % 1.4 %; Eosinophils % 6.9 %; HCT 36.5 % (40.0-50.0); HGB 11.5 g/dL (13.5-17.5); Immature Grans % 0.2 %; MCH 29.6 pg (27.0-33.0); MCHC 31.5 % (32.0-36.0); MCV 94 fL (80-95); Monocytes % 8.3 %; Neutrophils % 62.2 %; Platelet Count 207 10^3/uL (130-400); RBC 3.88 10^6/uL (4.36-5.78); RDW 13.5 % (11.8-14.1); RDW-SD 46.6 fL; WBC 4.33 10^3/uL (4.4-10.8)
[2024-10-17 08:00] LABS: ALT 11 U/L (16-63); AST 15 U/L (15-37); Albumin 3.8 g/dL (3.4-5.0); Alkaline Phosphatase 84 U/L (46-116); Anion Gap 7.5 mmol/L (3-11); BUN 40 mg/dL (7-18); Bilirubin, Total 0.3 mg/dL (0.2-1.0); CO2 30.5 mmol/L (21.0-32.0); CREATININE 1.5 mg/dL (0.70-1.30); Calcium 9.7 mg/dL (8.5-10.1); Chloride 105 mmol/L (98-107); Estimated GFR 47.95 (mL/min/1.73m2); Glucose 98 mg/dL (74-106); Potassium 4.6 mmol/L (3.5-5.1); Sodium 143 mmol/L (136-145); Total Protein 7.2 g/dL (6.4-8.2)
== END 2024-10-17 02:56 | disposition home or self-care (01) ==
LOC: LBO 02:55
PROVIDERS: PCP Family Medicine; Visit Provider Nurse Practitioner Family
DX: D63.8 Anemia in other chronic diseases classified elsewhere (principal); N18.31 Chronic kidney disease, stage 3a
CPT/HCPCS: 36415; 80053; 85025

== ENCOUNTER → 2024-10-24 10:14 | Outpatient (BNVA) | payer MEDICARE, SELFPAY | PROVIDERS: PCP Family Medicine; Referring Provider Family Medicine; Visit Provider Psychiatry & Neurology Neurology | DX: I95.1 Orthostatic hypotension (principal); G20.C Parkinsonism, unspecified; K59.00 Constipation, unspecified; N18.9 Chronic kidney disease, unspecified; M25.572 Pain in left ankle and joints of left foot; R63.4 Abnormal weight loss; I10 Essential (primary) hypertension | CPT/HCPCS: 99215 ==

== ENCOUNTER 2024-11-14 01:37 | Outpatient (CLI) | payer MEDICARE, SELFPAY ==
[2024-11-14 12:24] LABS: Abs Immature Grans 0.01 10^3/uL (0.0-0.06); Absolute Basophil Count 0.06 10^3/uL (0.0-0.2); Absolute Eosinophil Count 0.29 10^3/uL (0.0-0.7); Absolute Neutrophil Count 3.38 10^3/uL (1.2-6.7); Basophils % 1.2 %; Eosinophils % 5.9 %; HCT 33.5 % (40.0-50.0); HGB 10.5 g/dL (13.5-17.5); Immature Grans % 0.2 %; Lymphocytes % 16.2 %; MCH 29.6 pg (27.0-33.0); MCHC 31.3 % (32.0-36.0); MCV 94 fL (80-95); MPV 9.3 fL (8.0-11.0); Monocytes % 8.1 %; Neutrophils % 68.4 %; Platelet Count 219 10^3/uL (130-400); RBC 3.55 10^6/uL (4.36-5.78); RDW 13.8 % (11.8-14.1); RDW-SD 47.6 fL; WBC 4.94 10^3/uL (4.4-10.8)
[2024-11-14 13:06] LABS: ALT 8 U/L (16-63); AST 16 U/L (15-37); Albumin 3.9 g/dL (3.4-5.0); Alkaline Phosphatase 81 U/L (46-116); BUN 35 mg/dL (7-18); Bilirubin, Total 0.4 mg/dL (0.2-1.0); CREATININE 1.4 mg/dL (0.70-1.30); Calcium 9.1 mg/dL (8.5-10.1); Chloride 105 mmol/L (98-107); Estimated GFR 52.09 (mL/min/1.73m2); Glucose 94 mg/dL (74-106); Potassium 4.5 mmol/L (3.5-5.1); Sodium 141 mmol/L (136-145)
== END 2024-11-14 01:38 | disposition home or self-care (01) ==
LOC: LBO 01:37
PROVIDERS: PCP Family Medicine; Visit Provider Nurse Practitioner Family
DX: N18.31 Chronic kidney disease, stage 3a (principal); D63.8 Anemia in other chronic diseases classified elsewhere
CPT/HCPCS: 36415; 80053; 85025

== ENCOUNTER 2024-12-12 02:07 | Outpatient (CLI) | payer MEDICARE, SELFPAY ==
[2024-12-12 07:36] LABS: ALT 9 U/L (16-63); AST 13 U/L (15-37); Albumin 3.7 g/dL (3.4-5.0); Alkaline Phosphatase 87 U/L (46-116); Anion Gap 7.5 mmol/L (3-11); BUN 42 mg/dL (7-18); Bilirubin, Total 0.4 mg/dL (0.2-1.0); CO2 29.5 mmol/L (21.0-32.0); CREATININE 1.6 mg/dL (0.70-1.30); Chloride 105 mmol/L (98-107); Estimated GFR 44.38 (mL/min/1.73m2); Glucose 102 mg/dL (74-106); Potassium 4.1 mmol/L (3.5-5.1); Sodium 142 mmol/L (136-145); Total Protein 6.7 g/dL (6.4-8.2)
[2024-12-12 08:55] LABS: Abs Immature Grans 0.01 10^3/uL (0.0-0.06); Absolute Basophil Count 0.04 10^3/uL (0.0-0.2); Absolute Eosinophil Count 0.23 10^3/uL (0.0-0.7); Absolute Lymphocyte Count 0.87 10^3/uL (1.2-3.4); Absolute Monocyte Count 0.39 10^3/uL (0.1-0.8); Absolute Neutrophil Count 3.07 10^3/uL (1.2-6.7); Basophils % 0.9 %; HCT 28.7 % (40.0-50.0); HGB 9.1 g/dL (13.5-17.5); Immature Grans % 0.2 %; Lymphocytes % 18.9 %; MCH 29.7 pg (27.0-33.0); MCHC 31.7 % (32.0-36.0); MCV 94 fL (80-95); MPV 9.5 fL (8.0-11.0); Monocytes % 8.5 %; Neutrophils % 66.5 %; Platelet Count 246 10^3/uL (130-400); RBC 3.06 10^6/uL (4.36-5.78); RDW 14.4 % (11.8-14.1); RDW-SD 49.4 fL; WBC 4.61 10^3/uL (4.4-10.8)
== END 2024-12-12 02:08 | disposition home or self-care (01) ==
LOC: LBO 02:07
PROVIDERS: PCP Family Medicine; Visit Provider Nurse Practitioner Family
DX: N18.31 Chronic kidney disease, stage 3a (principal); D63.8 Anemia in other chronic diseases classified elsewhere
CPT/HCPCS: 36415; 80053; 85025

== ENCOUNTER 2025-01-09 01:24 | Outpatient (CLI) | payer MEDICARE, SELFPAY ==
[2025-01-09 07:17] LABS: Abs Immature Grans 0.01 10^3/uL (0.0-0.06); Absolute Basophil Count 0.05 10^3/uL (0.0-0.2); Absolute Eosinophil Count 0.26 10^3/uL (0.0-0.7); Absolute Lymphocyte Count 0.77 10^3/uL (1.2-3.4); Absolute Monocyte Count 0.28 10^3/uL (0.1-0.8); Absolute Neutrophil Count 2.41 10^3/uL (1.2-6.7); Basophils % 1.3 %; Eosinophils % 6.9 %; HCT 29.5 % (40.0-50.0); HGB 9.1 g/dL (13.5-17.5); Immature Grans % 0.3 %; Lymphocytes % 20.4 %; MCH 29.2 pg (27.0-33.0); MCHC 30.8 % (32.0-36.0); MCV 95 fL (80-95); MPV 9.1 fL (8.0-11.0); Monocytes % 7.4 %; Neutrophils % 63.7 %; Platelet Count 200 10^3/uL (130-400); RBC 3.12 10^6/uL (4.36-5.78); RDW 13.9 % (11.8-14.1); RDW-SD 47.8 fL; WBC 3.78 10^3/uL (4.4-10.8)
[2025-01-09 07:41] LABS: ALT 13 U/L (16-63); AST 13 U/L (15-37); Albumin 3.8 g/dL (3.4-5.0); Alkaline Phosphatase 91 U/L (46-116); Anion Gap 10.5 mmol/L (3-11); BUN 46 mg/dL (7-18); Bilirubin, Total 0.4 mg/dL (0.2-1.0); CO2 27.5 mmol/L (21.0-32.0); CREATININE 1.4 mg/dL (0.70-1.30); Calcium 8.8 mg/dL (8.5-10.1); Chloride 104 mmol/L (98-107); Estimated GFR 52.09 (mL/min/1.73m2); Glucose 109 mg/dL (74-106); Potassium 4.2 mmol/L (3.5-5.1); Sodium 142 mmol/L (136-145); Total Protein 6.9 g/dL (6.4-8.2)
== END 2025-01-09 01:25 | disposition home or self-care (01) ==
LOC: LBO 01:25
PROVIDERS: PCP Family Medicine; Visit Provider Nurse Practitioner Family
DX: D63.8 Anemia in other chronic diseases classified elsewhere (principal)
CPT/HCPCS: 36415; 80053; 85025

== ENCOUNTER → 2025-01-23 10:14 | Outpatient (BNVA) | payer MEDICARE, SELFPAY | PROVIDERS: PCP Family Medicine; Referring Provider Family Medicine; Visit Provider Psychiatry & Neurology Neurology | DX: I95.1 Orthostatic hypotension (principal); G20.C Parkinsonism, unspecified; K59.00 Constipation, unspecified; N18.9 Chronic kidney disease, unspecified; M25.572 Pain in left ankle and joints of left foot; R63.4 Abnormal weight loss | CPT/HCPCS: 99214 ==

== ENCOUNTER 2025-02-06 02:25 | Outpatient (CLI) | payer MEDICARE, SELFPAY ==
[2025-02-06 07:23] LABS: Abs Immature Grans 0.01 10^3/uL (0.0-0.06); HCT 31.5 % (40.0-50.0); HGB 9.9 g/dL (13.5-17.5); Immature Grans % 0.2 %; MCH 29.6 pg (27.0-33.0); MCHC 31.4 % (32.0-36.0); MCV 94 fL (80-95); MPV 9.1 fL (8.0-11.0); Platelet Count 203 10^3/uL (130-400); RBC 3.35 10^6/uL (4.36-5.78); RDW 13.4 % (11.8-14.1); RDW-SD 46.2 fL; WBC 4.10 10^3/uL (4.4-10.8)
[2025-02-06 07:41] LABS: ALT 10 U/L (16-63); AST 14 U/L (15-37); Albumin 3.8 g/dL (3.4-5.0); Alkaline Phosphatase 94 U/L (46-116); Anion Gap 9.5 mmol/L (3-11); BUN 38 mg/dL (7-18); Bilirubin, Total 0.3 mg/dL (0.2-1.0); CO2 28.5 mmol/L (21.0-32.0); Calcium 8.9 mg/dL (8.5-10.1); Chloride 105 mmol/L (98-107); Estimated GFR 69.14 (mL/min/1.73m2); Glucose 90 mg/dL (74-106); Potassium 4.1 mmol/L (3.5-5.1); Sodium 143 mmol/L (136-145); Total Protein 6.9 g/dL (6.4-8.2)
[2025-02-06 08:24] LABS: Iron 73 ug/dL (65-175)
[2025-02-06 08:51] LABS: Ferritin 200 ng/mL (26-388); Vitamin B12 795 pg/mL (193-986)
== END 2025-02-06 02:26 | disposition home or self-care (01) ==
LOC: LBO 02:26
PROVIDERS: PCP Family Medicine; Visit Provider Nurse Practitioner Family
DX: D64.9 Anemia, unspecified (principal)
CPT/HCPCS: 36415; 80053; 82607; 82728; 83540; 85025

== ENCOUNTER 2025-03-06 02:55 | Outpatient (CLI) | payer MEDICARE, SELFPAY ==
[2025-03-06 07:17] LABS: Abs Immature Grans 0.01 10^3/uL (0.0-0.06); HCT 32.9 % (40.0-50.0); HGB 10.3 g/dL (13.5-17.5); Immature Grans % 0.3 %; MCH 29.3 pg (27.0-33.0); MCHC 31.3 % (32.0-36.0); MCV 94 fL (80-95); MPV 9.4 fL (8.0-11.0); Platelet Count 197 10^3/uL (130-400); RBC 3.52 10^6/uL (4.36-5.78); RDW 13.3 % (11.8-14.1); RDW-SD 45.3 fL; WBC 3.51 10^3/uL (4.4-10.8)
[2025-03-06 07:38] LABS: ALT 10 U/L (16-63); AST 12 U/L (15-37); Albumin 3.8 g/dL (3.4-5.0); Alkaline Phosphatase 77 U/L (46-116); Anion Gap 5.9 mmol/L (3-11); BUN 37 mg/dL (7-18); Bilirubin, Total 0.3 mg/dL (0.2-1.0); CO2 30.1 mmol/L (21.0-32.0); Calcium 9.0 mg/dL (8.5-10.1); Chloride 106 mmol/L (98-107); Estimated GFR 69.14 (mL/min/1.73m2); Glucose 99 mg/dL (74-106); Potassium 4.3 mmol/L (3.5-5.1); Sodium 142 mmol/L (136-145); Total Protein 6.8 g/dL (6.4-8.2)
== END 2025-03-06 02:56 | disposition home or self-care (01) ==
LOC: LBO 02:56
PROVIDERS: PCP Family Medicine; Visit Provider Nurse Practitioner Family
DX: N18.30 Chronic kidney disease, stage 3 unspecified (principal); D63.1 Anemia in chronic kidney disease
CPT/HCPCS: 36415; 80053; 85025

== ENCOUNTER 2025-04-03 01:42 | Outpatient (CLI) | payer MEDICARE, SELFPAY ==
[2025-04-03 07:25] LABS: Abs Immature Grans 0.00 10^3/uL (0.0-0.06); HCT 31.5 % (40.0-50.0); HGB 10.0 g/dL (13.5-17.5); Immature Grans % 0.0 %; MCH 29.4 pg (27.0-33.0); MCHC 31.7 % (32.0-36.0); MCV 93 fL (80-95); MPV 9.4 fL (8.0-11.0); Platelet Count 187 10^3/uL (130-400); RBC 3.40 10^6/uL (4.36-5.78); RDW 13.9 % (11.8-14.1); RDW-SD 46.7 fL; WBC 3.81 10^3/uL (4.4-10.8)
[2025-04-03 08:02] LABS: ALT 8 U/L (16-63); AST 10 U/L (15-37); Albumin 3.6 g/dL (3.4-5.0); Alkaline Phosphatase 92 U/L (46-116); Anion Gap 7.5 mmol/L (3-11); BUN 39 mg/dL (7-18); Bilirubin, Total 0.3 mg/dL (0.2-1.0); CO2 29.5 mmol/L (21.0-32.0); Calcium 8.8 mg/dL (8.5-10.1); Chloride 105 mmol/L (98-107); Estimated GFR 56.58 (mL/min/1.73m2); Ferritin 202 ng/mL (26-388); Glucose 101 mg/dL (74-106); Potassium 4.6 mmol/L (3.5-5.1); Sodium 142 mmol/L (136-145); Total Protein 6.6 g/dL (6.4-8.2)
== END 2025-04-03 01:43 | disposition home or self-care (01) ==
LOC: LBO 01:42
PROVIDERS: PCP Family Medicine; Visit Provider Internal Medicine Hematology & Oncology
DX: N18.31 Chronic kidney disease, stage 3a (principal); D63.1 Anemia in chronic kidney disease
CPT/HCPCS: 80053; 82728; 85025

== ENCOUNTER 2025-05-01 00:05 | Outpatient (CLI) | payer MEDICARE, SELFPAY ==
[2025-05-01 07:16] LABS: Abs Immature Grans 0.00 10^3/uL (0.0-0.06); HCT 31.9 % (40.0-50.0); HGB 9.8 g/dL (13.5-17.5); Immature Grans % 0.0 %; MCH 28.3 pg (27.0-33.0); MCHC 30.7 % (32.0-36.0); MCV 92 fL (80-95); MPV 8.8 fL (8.0-11.0); Platelet Count 186 10^3/uL (130-400); RBC 3.46 10^6/uL (4.36-5.78); RDW 13.9 % (11.8-14.1); RDW-SD 47.2 fL; WBC 2.86 10^3/uL (4.4-10.8)
[2025-05-01 07:45] LABS: ALT 8 U/L (16-63); AST 12 U/L (15-37); Albumin 3.6 g/dL (3.4-5.0); Alkaline Phosphatase 122 U/L (46-116); Anion Gap 9.6 mmol/L (3-11); BUN 33 mg/dL (7-18); Bilirubin, Total 0.4 mg/dL (0.2-1.0); CO2 27.4 mmol/L (21.0-32.0); Calcium 8.6 mg/dL (8.5-10.1); Chloride 104 mmol/L (98-107); Estimated GFR 69.14 (mL/min/1.73m2); Ferritin 214 ng/mL (26-388); Glucose 106 mg/dL (74-106); Potassium 4.2 mmol/L (3.5-5.1); Sodium 141 mmol/L (136-145); Total Protein 6.6 g/dL (6.4-8.2)
== END 2025-05-01 00:06 | disposition home or self-care (01) ==
PROVIDERS: PCP Family Medicine; Visit Provider Internal Medicine Hematology & Oncology
DX: D63.8 Anemia in other chronic diseases classified elsewhere (principal); N18.31 Chronic kidney disease, stage 3a; D63.1 Anemia in chronic kidney disease
CPT/HCPCS: 36415; 80053; 82728; 85025

== ENCOUNTER → 2025-05-20 10:56 | Outpatient (BNVA) | payer MEDICARE, SELFPAY | PROVIDERS: PCP Family Medicine; Referring Provider Family Medicine; Visit Provider Psychiatry & Neurology Neurology | DX: G20.C Parkinsonism, unspecified (principal); I95.1 Orthostatic hypotension; K59.00 Constipation, unspecified; I12.9 Hypertensive chronic kidney disease with stage 1 through stage 4 chronic kidney disease, or unspecified chronic kidney disease; N18.9 Chronic kidney disease, unspecified; M25.572 Pain in left ankle and joints of left foot; R63.4 Abnormal weight loss; R13.10 Dysphagia, unspecified | CPT/HCPCS: 99215 ==

== ENCOUNTER 2025-05-29 01:50 | Outpatient (CLI) | payer MEDICARE, SELFPAY ==
[2025-05-29 07:18] LABS: Abs Immature Grans 0.01 10^3/uL (0.0-0.06); HCT 31.3 % (40.0-50.0); HGB 9.7 g/dL (13.5-17.5); Immature Grans % 0.3 %; MCH 28.9 pg (27.0-33.0); MCHC 31.0 % (32.0-36.0); MCV 93 fL (80-95); MPV 9.1 fL (8.0-11.0); Platelet Count 192 10^3/uL (130-400); RBC 3.36 10^6/uL (4.36-5.78); RDW 14.4 % (11.8-14.1); RDW-SD 49.5 fL; WBC 3.55 10^3/uL (4.4-10.8)
[2025-05-29 07:49] LABS: AST 21 U/L (<34); Albumin 4.2 g/dL (3.4-5.0); Alkaline Phosphatase 91 U/L (46-116); Anion Gap 7.4 mmol/L (3-11); BUN 36 mg/dL (9-23); Bilirubin, Total 0.40 mg/dL (0.2-1.2); CO2 27.6 mmol/L (20.0-31.0); Calcium 8.9 mg/dL (8.3-10.6); Chloride 109 mmol/L (98-107); Glucose 95 mg/dL (74-106); Potassium 4.7 mmol/L (3.5-5.1); Sodium 144 mmol/L (136-145); Total Protein 6.5 g/dL (5.7-8.2)
[2025-05-29 07:52] LABS: ALT < 9 U/L (10-49)
== END 2025-05-29 01:51 | disposition home or self-care (01) ==
LOC: LBO 01:51
PROVIDERS: PCP Family Medicine; Visit Provider Internal Medicine Hematology & Oncology
DX: N18.31 Chronic kidney disease, stage 3a (principal); D63.1 Anemia in chronic kidney disease; D63.8 Anemia in other chronic diseases classified elsewhere
CPT/HCPCS: 36415; 80053; 85025

== ENCOUNTER 2025-06-26 00:38 | Outpatient (CLI) | payer MEDICARE, SELFPAY ==
[2025-06-26 09:31] LABS: Abs Immature Grans 0.02 10^3/uL (0.0-0.06); HCT 33.0 % (40.0-50.0); HGB 10.0 g/dL (13.5-17.5); Immature Grans % 0.5 %; MCH 28.4 pg (27.0-33.0); MCHC 30.3 % (32.0-36.0); MCV 94 fL (80-95); MPV 9.5 fL (8.0-11.0); Platelet Count 198 10^3/uL (130-400); RBC 3.52 10^6/uL (4.36-5.78); RDW 13.8 % (11.8-14.1); RDW-SD 47.3 fL; WBC 4.10 10^3/uL (4.4-10.8)
[2025-06-26 10:01] LABS: ALT < 7 U/L (10-49); AST 13 U/L (<34); Albumin 4.3 g/dL (3.2-5.0); Alkaline Phosphatase 81 U/L (46-116); Anion Gap 7.2 mmol/L (3-11); BUN 27 mg/dL (9-23); Bilirubin, Total 0.5 mg/dL (0.2-1.2); CO2 29.8 mmol/L (20.0-31.0); Calcium 9.1 mg/dL (8.3-10.6); Chloride 107 mmol/L (98-107); Glucose 82 mg/dL (74-106); Potassium 4.1 mmol/L (3.5-5.1); Sodium 144 mmol/L (136-145); Total Protein 6.8 g/dL (5.7-8.2)
== END 2025-06-26 00:39 | disposition home or self-care (01) ==
LOC: LBO 00:38
PROVIDERS: Nurse Practitioner Family; PCP Family Medicine; Visit Provider Internal Medicine Hematology & Oncology
DX: N18.31 Chronic kidney disease, stage 3a (principal)
CPT/HCPCS: 36415; 80053; 85025